=== PATIENT | female | born 1950 | race Caucasian/White ===

== ENCOUNTER 2017-01-16 05:08 | Inpatient (IN) | payer OTHER, MEDICARE ==
[2017-01-05 13:18] VITALS: BMI 33.1
[~2017-01-16 05:08] MED LIST: BACITRACIN 30 GM TUBE TOPICAL OINTMENT TP ONE
--- NOTE | 2017-01-16 07:46 | HP ---
History & Physical Update - History History: No Change - Physical Physical: No Change - Assessment Assessment: No Change - Plan Plan: No Change (This is my first time meeting the patient. I have informed her that I will be assissting Dr. Mcneal for todays procedure. She is fine with it.)
[2017-01-16] MEDS ORDERED: MIDAZOLAM HCL 2 MG/2 ML SINGLE DOSE VIAL ONE ×2 (08:07→10:59)
[2017-01-16] MEDS ORDERED: CEFAZOLIN 2 GM in DEXTROSE 5%-WATER - 100 ML IVPB ONE (08:15)
[2017-01-16] MEDS ORDERED: PROPOFOL 20 ML ONE (08:23)
[2017-01-16] MEDS ORDERED: ROCURONIUM BROMIDE 50 MG/5 ML VIAL ONE ×2 (08:24→09:06)
[2017-01-16] MEDS ORDERED: ceFAZolin SODIUM 1 GM VIAL IVPB ONE (08:27)
[2017-01-16] MEDS ORDERED: SEVOFLURANE 250 ML BTL ONE (08:34)
[2017-01-16] MEDS ORDERED: ceFAZolin SODIUM 1 GM VIAL ONE (08:44)
[2017-01-16] MEDS ORDERED: THROMBIN (BOVINE) 5,000 UNIT VIAL TP ONE (09:00)
[2017-01-16] MEDS ORDERED: BACITRACIN 50,000 UNITS VIAL TP ONE (09:00)
[2017-01-16] MEDS ORDERED: BUPIVACAINE HCL/PF 0.5% (5MG/ML) 10 ML VIAL ONE (10:02)
[2017-01-16] MEDS ORDERED: BACITRACIN 30 GM TUBE TOPICAL OINTMENT ONE (10:02)
[2017-01-16] MEDS ORDERED: BUPIVACAINE HCL/PF (5 MG/ML) 30 ML VIAL IJ ONE (10:05)
[2017-01-16] MEDS ORDERED: NEOSTIGMINE METHYLSULFATE 0.5 MG/ML - 10 ML MDV ONE (10:10)
[2017-01-16] MEDS ORDERED: GLYCOPYRROLATE 0.2 MG/1 ML VIAL ONE (10:11)
[2017-01-16] MEDS ORDERED: ONDANSETRON 4 MG/2 ML VIAL ONE (10:11)
[2017-01-16] MEDS ORDERED: LIDOCAINE HCL/PF 2% SDV 5ML VIAL ONE (10:11)
[2017-01-16] MEDS ORDERED: HYDROCORTISONE SOD SUCCINATE 2 ML ONE (10:11)
[2017-01-16] MEDS ORDERED: BACITRACIN 30 GM TUBE TOPICAL OINTMENT TP ONE (10:25)
--- NOTE | 2017-01-16 10:33 | OP ---
Operative Note - Note: Operative Date: 01/16/17 Pre-Operative Diagnosis: L4-5 >L3-4 and L5-S1 stenosis; L4-5 spondylolisthesis; L L4-5-S1 radiculopathy Operation: Partial L L3,L4,L5, S1 laminectomies, medial facetectomies, foramenotomies R L3-4, L4-5, L5-S; L4-5 posterolateral allograft fusion; microdissection Findings: R L4-5 Parafacet cyst with purulent vs cholesterol crystals L4-5 spondylolisthesis, stenosis > L3-4 and L5-S1; thickened ligamentum Implants: 1 cc graft-on Post-Operative Diagnosis: Same as Pre-op Surgeon: Won Mcneal Bending Roll Hand: Beto Bagley Anesthesiologist/RETAIL ASSOCIATE MANAGER BILINGUAL: Stephanie Kinney MD Anesthesia: General Specimens Removed: R L4-5 facet cyst r/o infection; fluid for cultures Estimated Blood Loss (mls): 50 Operative Report Dictated: Yes
[2017-01-16] MEDS ORDERED: BISACODYL 10 MG SUPP.RECT RC PRN (10:34)
[2017-01-16] MEDS ORDERED: ONDANSETRON 4 MG/2 ML VIAL IVPB PRN (10:34)
[2017-01-16] MEDS ORDERED: ALBUTEROL SO4 6.7 GM HFA INHALER IH PRN ×3 (10:37→11:14)
--- NOTE | 2017-01-16 10:44 | PN ---
Progress Note (short form) - Note Progress Note: NEUROSURGERY In PACU Some incisional pain AF, VS; O2 sat 100% Dressing C/D/I CV- RRR: Lungs- no wheezing; Abd- benign, +BS; Ext- no sign DVT Motor at least 4+/5 L DF;R DF 4/5 Albuterol PRN Decadron x 24 hrs as pt on prednisone previously and could benefit form it also for asthma Check intraop cyst fluid culture Cont iv abx for now till gram/stain back aware Check labs including LFT's Consult Dr Cortes
[2017-01-16] MEDS ORDERED: D5-1/2NS+20 MEQ KCL - 1,000 ML IV SCH ×2 (10:45)
--- NOTE | 2017-01-16 10:53 | SURG ---
Surgery Equipment Maintenance Technician Note Equipment Maintenance Technician: Beto Bagley PA-C Date of Service: 01/16/17 Diagnosis: L4-5 >L3-4 and L5-S1 stenosis; L4-5 spondylolisthesis; L L4-5-S1 radiculopathy Procedure: Partial L L3,L4,L5, S1 laminectomies, medial facetectomies, foramenotomies R L3- 4, L4-5, L5-S; L4-5 posterolateral allograft fusion; microdissection I was present for the entirety of the operative procedure. For further detail, please refer to operative report. Visit type - Case Type Case Type: Scheduled Admission - New patient This patient is new to me today: Yes Date on this admission: 01/16/17
[2017-01-16] MEDS: MIDAZOLAM HCL 2 MG/2 ML SINGLE DOSE VIAL IVPUSH ONE ×2 (11:00→21:58)
[2017-01-16] MEDS ORDERED: LACTATED RINGERS SOLUTION 1,000 ML IV SCH (11:15)
[2017-01-16 12:05] LABS: MCH 27.9 pg (25.7-33.7); MCHC 32.3 g/dl (32.0-36.0); MEAN CELL VOLUME 86.5 fl (80-96); MEAN PLT VOLUME 8.5 fl (7.5-11.1); PLATELET COUNT 298 K/MM3 (134-434); RDW 14.1 % (11.6-15.6); WHITE BLOOD COUNT 8.9 K/mm3 (4.0-10.0)
[2017-01-16 12:32] LABS: ANION GAP 8 (8-16); BILIRUBIN,TOTAL 0.3 mg/dL (0.2-1.0); C-REACTIVE PROTEIN 3.8 MG/DL (0.00-0.3); CALCIUM 8.9 mg/dL (8.5-10.1); CO2 26 mmol/L (21-32); CREATININE 0.7 mg/dL (0.55-1.02); GLUCOSE,RANDOM 146 mg/dL (74-106); SGOT/AST 28 U/L (15-37); SGPT/ALT 50 U/L (12-78); TOT PROT 5.9 g/dl (6.4-8.2)
[2017-01-16 12:33] LABS: ALK PHOS 140 U/L (45-117)
[2017-01-16] MEDS ORDERED: DEXAMETHASONE SOD PHOSPHATE 4 MG/1 ML VIAL IVPB SCH (15:00)
[2017-01-16] MEDS: DEXAMETHASONE SOD PHOSPHATE 4 MG/1 ML VIAL IVPB SCH ×2 (15:46→21:41)
[2017-01-16] MEDS: DOCUSATE SODIUM 100 MG CAPSULE (FP) PO SCH ×2 (15:46→21:41)
[2017-01-16] MEDS: diazePAM 5 MG TABLET PO SCH ×3 (15:46→21:41)
[2017-01-16] MEDS ORDERED: CEFAZOLIN 1 GM/D5W 50 ML IVPB SCH (16:30)
[2017-01-16 16:48] LABS: ERYTHROCYTE SEDIMENTATION RATE 60 mm/hr (0-30)
[2017-01-16] MEDS ORDERED: PT OWN MED DRAWER 7, Y5N ONE ×2 (16:57→21:35)
[2017-01-16] MEDS: CEFAZOLIN (PRE-DOCKED) 50 ML IVPB SCH (17:55)
[2017-01-16] MEDS: TAPENTADOL HYDROCHLORIDE 50 MG TABLET PO PRN (20:24)
[2017-01-16] MEDS: DULoxetine HCL 30 MG CAPSULE.DR (FP) PO SCH (21:41)
[2017-01-16] MEDS ORDERED: MIRTAZAPINE 30 MG TABLET (FP) PO SCH (22:00)
[2017-01-16] MEDS: TOPIRAMATE 100 MG TABLET PO SCH (23:19)
[2017-01-17] MEDS: CEFAZOLIN (PRE-DOCKED) 50 ML IVPB SCH ×3 (01:31→18:33)
[2017-01-17] MEDS: TAPENTADOL HYDROCHLORIDE 50 MG TABLET PO PRN ×3 (01:32→22:27)
[2017-01-17] MEDS: DEXAMETHASONE SOD PHOSPHATE 4 MG/1 ML VIAL IVPB SCH ×2 (04:32→09:45)
[2017-01-17] MEDS: diazePAM 5 MG TABLET PO SCH ×3 (06:07→22:23)
[2017-01-17] MEDS: DOCUSATE SODIUM 100 MG CAPSULE (FP) PO SCH ×3 (06:07→22:23)
--- NOTE | 2017-01-17 07:30 | PN ---
Progress Note (short form) - Note Progress Note: NEUROSURGERY POD #1 Some incisional pain Mild sciatica when up Tmax 99.2, AF, VSS Dressing C/D/I CV- RRR: Lungs- no wheezing; Abd- benign, +BS; Ext- no sign DVT Motor improved to 5/5 inc R DF WBC 8.9, ESR 60; Alk phos 140, LFT otherwise generally acceptable; CRP 3.8 PT Albuterol PRN Nucynta for pain Decadron x 24 hrs as pt on prednisone previously and could benefit form it also for asthma Intraop cyst fluid/wound and gram stain culture negative Cont iv abx for now till gram/stain back aware Consulted Dr Cortes
[2017-01-17 08:10] LABS: MCH 27.9 pg (25.7-33.7); MCHC 32.7 g/dl (32.0-36.0); MEAN CELL VOLUME 85.4 fl (80-96); MEAN PLT VOLUME 8.5 fl (7.5-11.1); PLATELET COUNT 282 K/MM3 (134-434); RDW 13.6 % (11.6-15.6); WHITE BLOOD COUNT 13.1 K/mm3 (4.0-10.0)
--- NOTE | 2017-01-17 08:39 | PN ---
Progress Note, Physician Chief Complaint: Pt. pain controlled, no GA complications. - Current Medication List Current Medications: Active Medications Albuterol Sulfate (Ventolin Hfa Inhaler -) 1 puff IH QID PRN PRN Reason: ASTHMA Albuterol Sulfate (Ventolin Hfa Inhaler -) 2 puff IH QID PRN PRN Reason: ASTHMA Bisacodyl (Dulcolax Suppository -) 10 mg RC DAILY PRN PRN Reason: CONSTIPATION Dexamethasone Sodium Phosphate (Decadron Injection -) 4 mg IVPB Q6H-IV [facility] Stop: 01/17/17 09:01 Last Admin: 01/17/17 04:32 Dose: 4 mg Diazepam (Valium -) 5 mg PO TID [facility] Last Admin: 01/17/17 06:07 Dose: 5 mg Docusate Sodium (Colace -) 100 mg PO TID [facility] Last Admin: 01/17/17 06:07 Dose: 100 mg Duloxetine HCl (Cymbalta -) 30 mg PO HS [facility] Last Admin: 01/16/17 21:41 Dose: 30 mg Fentanyl (Sublimaze Injection -) 50 mcg IVPUSH [id number] PRN PRN Reason: PAIN Stop: 01/19/17 11:15 Last Admin: 01/16/17 13:42 Dose: 50 mcg Potassium Chloride/Dextrose/Sod Cl (D5-1/2ns+20 Meq Kcl -) 1,000 mls @ 100 mls/ hr IV ASDIR DMITRIY Potassium Chloride/Dextrose/Sod Cl (D5-1/2ns+20 Meq Kcl -) 1,000 mls @ 42 mls/ hr IV ASDIR [facility] Cefazolin Sodium (Ancef 1gm Ivpb (Pre-Docked)) 50 mls @ 100 mls/hr IVPB Q8H [facility] Stop: 01/17/17 09:29 Last Admin: 01/17/17 01:31 Dose: 100 mls/hr Cefazolin Sodium 1 gm/ (Dextrose) 50 mls @ 100 mls/hr IVPB Q8H-IV [facility] Lactobacillus Acidophilus (Bacid -) 1 tab PO DAILY [facility] Ondansetron HCl (Zofran Injection) 4 mg IVPB Q6H PRN PRN Reason: NAUSEA AND/OR VOMITING Potassium Chloride (K-Dur -) 20 meq PO DAILY [facility] Prednisone (Deltasone -) 10 mg PO DAILY [facility] Tapentadol (Nucynta -) 50 mg PO Q4H PRN PRN Reason: PAIN Last Admin: 01/17/17 01:32 Dose: 50 mg Topiramate (Topamax -) 100 mg PO BID [facility] Last Admin: 01/16/17 23:19 Dose: 100 mg - Objective Vital Signs: Vital Signs Temperature 98.3 F 01/17/17 06:08 Pulse Rate 88 01/17/17 06:08 Respiratory Rate 20 01/17/17 06:08 Blood Pressure 148/54 01/17/17 06:08 O2 Sat by Pulse Oximetry (%) 98 01/16/17 14:15 Constitutional: Yes: Well Nourished, No Distress, Calm Musculoskeletal: Yes: WNL Neurological: Yes: WNL, Alert, Oriented Labs: CBC, BMP 01/17/17 07:15 Assessment/Plan POD#1 s/p Lumbar laminectomy L3-4, L4-5, L5-S1 under GA. Doing well. D/C from anesthesia care.
[2017-01-17 08:40] LABS: ALBUMIN 2.7 g/dl (3.4-5.0); ANION GAP 9 (8-16); CALCIUM 8.9 mg/dL (8.5-10.1); CO2 25 mmol/L (21-32); GLUCOSE,RANDOM 129 mg/dL (74-106)
[2017-01-17 08:45] LABS: ALK PHOS 123 U/L (45-117); BILIRUBIN,TOTAL 0.3 mg/dL (0.2-1.0); CREATININE 0.5 mg/dL (0.55-1.02); SGOT/AST 16 U/L (15-37); SGPT/ALT 39 U/L (12-78); TOT PROT 5.4 g/dl (6.4-8.2)
[2017-01-17] MEDS ORDERED: PT OWN MED DRAWER 7, Y5N ONE ×2 (09:37→21:56)
[2017-01-17] MEDS: predniSONE 10 MG TABLET (UD) PO SCH (09:46)
[2017-01-17] MEDS: CEFAZOLIN 1 GM in DEXTROSE 5%-WATER - 50 ML IVPB SCH ×2 (09:47→09:52)
[2017-01-17] MEDS: LACTOBACILLUS ACIDOPHILUS 1 EACH TAB (FP) PO SCH (09:47)
[2017-01-17] MEDS: POTASSIUM CHLORIDE TABS 20 MEQ TABLET.ER (FP) PO SCH (09:48)
[2017-01-17] MEDS: TOPIRAMATE 100 MG TABLET PO SCH ×2 (09:49→22:23)
--- NOTE | 2017-01-17 11:54 | PATH ---
Surgical Pathology Report Patient Name: CRISPIN DOMINGUEZ Med. Rec. #: [id number] /Age/Gender: 1950 (Age: 66) / F Account: [id number] Location: [facility] MED/SURG Taken: 01/16/2017 Received: 01/16/2017 Reported: 01/17/2017 Physicians: Won Mcneal M.D. Specimen(s) Received CYST L4-L5 Clinical History L4-L5 grade 1 spondylolisthesis with moderate central stenosis, L3-L4 and L5-S1 degenerative disease and foraminal narrowing Final Diagnosis SOFT TISSUE, L4-5 CYST, EXCISION: BENIGN FIBROFATTY TISSUE, FIBROCARTILAGE AND FRAGMENT OF BONE WITH DEGENERATIVE CHANGES, ACUTE AND CHRONIC INFLAMMATION. Comment: Special stains for acid-fast and fungal organisms at end and chemical results will be reported in an addendum. Correlation with microbiology studies are also suggested. Electronically Signed Randolph Triplett M.D. Addendum Reported: 01/17/2017 Addendum Diagnosis No fungal organisms are identified with GMS stain. No acid fast bacilli are identified with AFB stain. Randolph Triplett M.D. Gross Description Received fresh labeled "cyst L4-5," are 3 elizabeth-pink fragments of soft tissue ranging from 0.1-0.7 cm in greatest dimension. The specimens are submitted in toto in one cassette. /01/16/201701/16/2017
--- NOTE | 2017-01-17 12:12 | PN ---
Progress Note (short form) - Note Progress Note: Current Medications Albuterol Sulfate (Ventolin Hfa Inhaler -) 1 puff IH QID PRN PRN Reason: ASTHMA Albuterol Sulfate (Ventolin Hfa Inhaler -) 2 puff IH QID PRN PRN Reason: ASTHMA Bisacodyl (Dulcolax Suppository -) 10 mg RC DAILY PRN PRN Reason: CONSTIPATION Diazepam (Valium -) 5 mg PO TID [facility] Last Admin: 01/17/17 06:07 Dose: 5 mg Docusate Sodium (Colace -) 100 mg PO TID [facility] Last Admin: 01/17/17 06:07 Dose: 100 mg Duloxetine HCl (Cymbalta -) 30 mg PO HS [facility] Last Admin: 01/16/17 21:41 Dose: 30 mg Fentanyl (Sublimaze Injection -) 50 mcg IVPUSH [id number] PRN PRN Reason: PAIN Stop: 01/19/17 11:15 Last Admin: 01/16/17 13:42 Dose: 50 mcg Potassium Chloride/Dextrose/Sod Cl (D5-1/2ns+20 Meq Kcl -) 1,000 mls @ 100 mls/ hr IV [facility]IR DMITRIY Potassium Chloride/Dextrose/Sod Cl (D5-1/2ns+20 Meq Kcl -) 1,000 mls @ 42 mls/ hr IV ASDIR DMITRIY Cefazolin Sodium 1 gm/ (Dextrose) 50 mls @ 100 mls/hr IVPB Q8H-IV [facility] Last Admin: 01/17/17 09:52 Dose: Not Given Lactobacillus Acidophilus (Bacid -) 1 tab PO DAILY [facility] Last Admin: 01/17/17 09:47 Dose: 1 tab Ondansetron HCl (Zofran Injection) 4 mg IVPB Q6H PRN PRN Reason: NAUSEA AND/OR VOMITING Potassium Chloride (K-Dur -) 20 meq PO DAILY [facility] Last Admin: 01/17/17 09:48 Dose: 20 meq Prednisone (Deltasone -) 10 mg PO DAILY [facility] Last Admin: 01/17/17 09:46 Dose: 10 mg Tapentadol (Nucynta -) 50 mg PO Q4H PRN PRN Reason: PAIN Last Admin: 01/17/17 01:32 Dose: 50 mg Topiramate (Topamax -) 100 mg PO BID [facility] Last Admin: 01/17/17 09:49 Dose: 100 mg Laboratory Results - last 24 hr 01/16/17 01/16/17 01/16/17 11:30 11:30 11:30 WBC 8.9 RBC 4.06 Hgb 11.3 D Hct 35.1 MCV 86.5 MCHC 32.3 RDW 14.1 Plt Count 298 D MPV 8.5 ESR 60 H Sodium 142 Potassium 4.8 D Chloride 108 H Carbon Dioxide 26 Anion Gap 8 BUN 15 Creatinine 0.7 Creat Clearance w eGFR > 60 Random Glucose 146 H D Calcium 8.9 Total Bilirubin 0.3 D AST 28 ALT 50 Alkaline Phosphatase 140 H D C-Reactive Protein 3.8 H Cancelled Total Protein 5.9 L Albumin 3.0 L 01/17/17 01/17/17 07:15 07:15 WBC 13.1 H D RBC 3.63 Hgb 10.1 L D Hct 31.0 L MCV 85.4 MCHC 32.7 RDW 13.6 Plt Count 282 MPV 8.5 ESR Sodium 143 Potassium 4.2 Chloride 109 H Carbon Dioxide 25 Anion Gap 9 BUN 10 D Creatinine 0.5 L D Creat Clearance w eGFR > 60 Random Glucose 129 H Calcium 8.9 Total Bilirubin 0.3 AST 16 D ALT 39 D Alkaline Phosphatase 123 H C-Reactive Protein Total Protein 5.4 L Albumin 2.7 L Vital Signs Temperature 98.3 F 01/17/17 06:08 Pulse Rate 88 01/17/17 06:08 Respiratory Rate 20 01/17/17 06:08 Blood Pressure 148/54 01/17/17 06:08 O2 Sat by Pulse Oximetry (%) 98 01/16/17 14:15 CC: little or no back pain `````````````````````````````` skin--mild pallor eyes--EOMI, anicteric neck--no stridor, voice clear lungs--clear heart--RR neuro--alert, coherent, anxious but lucid; able to walk slowly without discomfort while doing PT ``````````````````````````````````````````````````````` Summ > degen LS bone & disc Dz--post op day #1; under went lumbo sacral decompression surge as outlined by Dr Mcneal; now doing PT > Bone cyst--detected at time of surgery; Path report reveals a benign appearance; prelim cultures are negative > asthma--stable at this time; on maint Prednisone and PRN Nebs > High glucose--probably 2nd steroid effect; no Hx of DM; will track daily > Mildly high WBC--doubt infection, post OP likely 2nd steroid effect > high Alk Phosph--trending down; had acute rise in all 3 LFTs pre-op; now near NL; US & Hep screen negative; this was very likely due to temp occlusion of CBD by stone but now seems to have passed > anemia--post-op; will recheck CBC in AM; could be dilutional > anxiety dz--on Valium & SSRI; will cut back valium slowly ~~~~~~~~~~~~~~~~~~~~~~~~~~~ Dr Cortes
[2017-01-17] MEDS ORDERED: CEFAZOLIN (PRE-DOCKED) 50 ML IVPB SCH (13:42)
--- NOTE | 2017-01-17 15:50 | OP ---
DATE OF OPERATION: 01/16/2017 PREOPERATIVE DIAGNOSES: 1. L4-5 spondylolisthesis with ventral and lateral recess stenosis. 2. Lateral recess stenosis, L3-4 and L5-S1. 3. Right L4, L5, and S1 radiculopathy. 4. Asthma. POSTOPERATIVE DIAGNOSES: 1. L4-5 spondylolisthesis with ventral and lateral recess stenosis 2. Lateral recess stenosis, L3-4 and L5-S1. 3. Right L4, L5, and S1 radiculopathy. 4. Asthma. ATTENDING SURGEON: Won Delgado MD [employer] ATTENDANT: VIKTOR Stewart ANESTHESIA: General endotracheal. ANESTHESIOLOGIST: Stephanie Kinney MD ESTIMATED BLOOD LOSS: 25 mL PROCEDURE: 1. Partial left L3, L4, L5, and S1 laminectomies for decompression of canal and right-sided neural foramen at the L3-4, L4-5, and L5-S1, including medial facetectomy and foraminotomy (36920, 17710, and [id number], and [id number]). 2. Right L4-5 posterior allograft fusion with allograft (40958). 3. Microsurgical dissection with operating microscope and microsurgical techniques (95016). FINDINGS: 1. Right L4-5 parafacet cyst with creamy-appearing material within. 2. Mild hypermobility, L4-5. 3. Lateral recess and foraminal stenosis, especially L4-5. INDICATIONS: The patient is a 66-year-old female with history of intractable lower back pain of right lower extremity radiculopathy of a few months' duration. She also presented with right lower extremity weakness in the L4, L5, and S1 distribution. EMG demonstrated right L5-S1 radiculopathy. The patient has failed conservative treatment, is here for lumbar decompression and posterolateral bone graft fusion without instrumentation. The risks of surgery include but are not limited to bleeding, infection, dural tear with CSF leak, neurological injury including thromboembolic risks, and risks of general anesthesia. The patient understands the indication for the procedure, procedure in detail, risks and benefits, and alternatives for treatment of lumbar condition and wishes to proceed. No guarantee is given for a favorable outcome. PROCEDURE IN DETAIL: The patient was taken to the operating room. She was placed in supine position after general anesthesia was induced and appropriate lines were placed. She was turned over in the prone position on a Bandar frame. All pressure points were checked and padded. O2 saturation of bilateral lower extremities was 100%. Lumbar region was cleaned with alcohol and prepped with Betadine, and localization x-ray was obtained with spinal needle in place just below the L4-5 interspace. After localization was obtained and position was verified, an approximately 3-1/2-inch incision was planned from L3 to S1. Incision was opened with a number 10 blade. Subperiosteal dissection was carried out with periosteal elevator and monopolar electrocautery on right side only from L3 to S1. Two self-retaining retractors were inserted. At this point, a couple of small parafacet cysts were noted, and upon puncturing one of them, some whitish creamy-colored material came out and it was sent for Gram stain, culture, bacterial, fungal, and AFB culture. A piece of the cyst was also sent for permanent section to rule out infection versus synovial cyst. At this point, the wound was irrigated with antibiotic-containing irrigation. X-ray localization was obtained with clamp at bottom of right L4 lamina. After position was verified on x-ray, partial laminectomy was carried out on the bottom of lamina of L3, top and bottom of lamina of L4, top and bottom of lamina of L5, top of lamina of S1, with compression of the spinal canal and lateral recess as well as neural foramen. Medial facetectomy at L3-4 to L4- 5 as well as L5-S1 was carried out with high-speed pneumatic drill and Kerrison rongeur. The underlying ligamentum was extremely thick, especially at L4-5, and it was disarticulated with angled curette and resected with Kerrison rongeurs. The dura was protected at all times. The right L4 and L5 nerve roots were decompressed at this level. Attention was then turned to the L3-4 interlaminar space, where partial hemilaminectomy was completed. Underlying ligamentum flavum was dissected with angled curette and resected with Kerrison rongeur. A foraminotomy was similarly carried out at this level to decompress the thecal sac as well as the right L3 and L4 nerve roots. Attention was turned to the L5-S1 interspace, where partial laminectomy was completed as well as a medial facetectomy and foraminotomy. Ligamentum flavum was dissected free similarly and the thecal sac as well as right L5-S1 nerve root was decompressed, the neural foramen and lateral recess respectively. There was no creamy/purulent-appearing material in the epidural space at all. The wound was irrigated with copious amount of antibiotic-containing irrigation, over 1 L. The posterolateral surface of the spine at L4 and L5 was decorticated with a high- speed pneumatic drill from the top of the transverse process at L5 to the bottom of the transverse process at L4. The area was then packed with 1 mL of previously morselized bone dust from our laminectomy as well as 1 mL of Graft-on. Epidural hemostasis was obtained with bipolar electrocautery and thrombin-soaked powdered Gelfoam. Another round of antibiotic irrigation was given. A layer of Surgicel was layered in the epidural space as effusion barrier. It was also left as a bacteriostatic agent. Paraspinal hemostasis was obtained with bipolar electrocautery. The decompression portion of procedure was performed with the use of the operative microscope for both illumination and magnification. Microsurgical techniques were utilized. After the posterolateral bone graft placement was completed at L4-5, dorsal lumbar fascia was closed utilizing 0 Vicryl suture after 10 mL of 0.25%Marcaine plain was injected in paraspinal muscles for local anesthetic. There was no other significant purulent material noted after further exploration of exposed LS spine area. Dorsal lumbar fascia was closed with 0 Vicryl suture. subcutaneous fascia was closed with 3- 0 Vicryl suture. Skin was closed with 4-0 Vicryl running subcuticular suture. Steri- Strips and a sterile occlusive dressing was applied. The patient tolerated the procedure well and was returned back to supine position and extubated. She received 1 dose of 1 gm Ancef prior to incision. All needle and lap counts were correct. The OR timeout procedure was followed. The intraoperative findings were discussed with the patient as well as the patient's family. They were informed of possibility of preexisting infection. WON DELGADO M.D. [id number] MTDD
--- NOTE | 2017-01-17 16:53 | PN ---
Progress Note (short form) - Note Progress Note: ID consult dictated imp/reccd 66 year old female admitted for elective lumbar laminectomy noted in the OR to have a parafacet cyst with creamy contents sent for gram stain and culture sent for path no history of diabetes no history of fevers otherwise well has had chronic worsening back pain recently tried epidural injections last 6 weeks ago currently on cefazolin cultures negative at 24 hours and gram stain is negative for organisms continue same antibiotics would await cultures afb and fungal have been sent as well d/w Dr Mcneal
--- NOTE | 2017-01-17 19:24 | CONS ---
DATE OF CONSULTATION: DATE OF DICTATION: 01/17/2017 INFECTIOUS DISEASE CONSULTATION REQUESTING PHYSICIAN: Won Mcneal M.D. CONSULTING PHYSICIAN: Micaela Ramos M.D. HISTORY OF PRESENT ILLNESS: This is a 66-year-old woman with a history of chronic back pain. She also has a history of hypertension and asthma . She has had progressive back pain for many, many years. She tried epidural several years ago. The pain waxed and waned. She tried epidurals again this November and December, the last about 6 weeks ago, was a set of 3 injections with no relief. She ultimately was referred by her PMD to Dr. Mcneal, and she was admitted for elective lumbar laminectomy. She underwent routine lumbar laminectomy and during the procedure she was noted to have a perifacet cyst with creamy content. There was a stat intraoperative pathology consult of the cyst that was notable just for chronic inflammation. It was sent for Gram stain and for culture as well as AFB and fungal. She was maintained on cephazolin and I am asked to comment on antibiotic management. She is afebrile, she has had no fevers and chills whatsoever. The Gram stain of the cyst itself shows no polycytes, no organisms. Gram stain of the fluid showed red cells with few polycytes, again no organisms, and AFB fungal and routine cultures are pending, blood cultures are negative. She had surgery yesterday. She has been continued on cephazolin. She is allergic to MORPHINE. She takes Topamax as an outpatient. PAST MEDICAL HISTORY: Notable for headaches, hypertension, asthma, diverticulosis, GERD, anxiety, depression, chronic low back pain. 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 FAMILY HISTORY: Noncontributory. SOCIAL HISTORY: She lives at home. MEDICATION: Medications at home include vitamin B, vitamin B12, calcium carbonate, vitamin D3, lactobacillus, multivitamins, mirtazapine, potassium, Topamax. SOCIAL HISTORY: She lives at home. There is no history of any cigarette use, occasional social wine with dinner. She is a former smoker. REVIEW OF SYSTEMS: She has been well. She had a recent UTI treated with amoxicillin for 10 days, which she currently has no dysuria, and she has not had any fevers or chills. PHYSICAL EXAMINATION: General: She is awake and alert. Vital signs: Temperature 99.2, heart rate 101, blood pressure 118/64, respiratory rate 18. HEENT: Normocephalic. Eyes are anicteric. Neck: Supple. Lungs: Clear to auscultation. Heart: Regular rate and rhythm. Abdomen: Soft, nontender. Extremities: Without edema. LABORATORY: White count is 13.1, hemoglobin 10.1, platelets 282, INR 1, BUN and creatinine are 10 and 0.5. LFTs are notable for an alkaline phosphatase of 123. Urinalysis is negative. Blood cultures are negative at 24 hours, and the cyst tissue is negative at 24 hours as well. AFB and fungal cultures are pending. I spoke with Dr. Mcneal regarding this patient's case . She is currently on cephazolin. Would continue the same antibiotics at this time. Will spike to in the morning. Would await further cultures. Most likely cyst does not appear infected. If the Gram stain has no organisms and the cultures are negative, but will follow up pathology as well. MICAELA RAMOS M.D. [id number]
[2017-01-17] MEDS: DULoxetine HCL 30 MG CAPSULE.DR (FP) PO SCH (22:23)
[2017-01-18] MEDS: CEFAZOLIN (PRE-DOCKED) 50 ML IVPB SCH ×2 (02:12→09:47)
[2017-01-18] MEDS: diazePAM 5 MG TABLET PO SCH ×3 (06:15→22:19)
[2017-01-18] MEDS: DOCUSATE SODIUM 100 MG CAPSULE (FP) PO SCH ×3 (06:16→22:19)
--- NOTE | 2017-01-18 07:25 | PN ---
Progress Note (short form) - Note Progress Note: NEUROSURGERY POD #2 Some incisional pain Mild sciatica when up Tolerating PO Walked up and down hallway to elevator with PT Tmax 99.3, AF, VSS Dressing C/D/I CV- RRR: Lungs- no wheezing; Abd- benign, +BS; Ext- no sign DVT Motor improved to 5/5 inc R DF PT/OOB Albuterol PRN Nucynta for pain Intraop cyst fluid/wound culture negative to date Cont Ancef for now ; d/w ID ID f/u
[2017-01-18 08:44] LABS: MCH 28.1 pg (25.7-33.7); MCHC 32.8 g/dl (32.0-36.0); MEAN CELL VOLUME 85.8 fl (80-96); MEAN PLT VOLUME 8.4 fl (7.5-11.1); PLATELET COUNT 314 K/MM3 (134-434); RDW 13.8 % (11.6-15.6); WHITE BLOOD COUNT 10.9 K/mm3 (4.0-10.0)
[2017-01-18 09:22] LABS: ALBUMIN 2.7 g/dl (3.4-5.0); ALK PHOS 127 U/L (45-117); ANION GAP 10 (8-16); BILIRUBIN,TOTAL 0.4 mg/dL (0.2-1.0); CALCIUM 8.9 mg/dL (8.5-10.1); CO2 25 mmol/L (21-32); CREATININE 0.6 mg/dL (0.55-1.02); GLUCOSE,RANDOM 85 mg/dL (74-106); MAGNESIUM 2.2 mg/dL (1.8-2.4); SGOT/AST 22 U/L (15-37); SGPT/ALT 43 U/L (12-78); TOT PROT 5.6 g/dl (6.4-8.2)
[2017-01-18] MEDS ORDERED: PT OWN MED DRAWER 7, Y5N ONE ×5 (09:46→22:50)
[2017-01-18] MEDS: predniSONE 10 MG TABLET (UD) PO SCH (09:48)
[2017-01-18] MEDS: POTASSIUM CHLORIDE TABS 20 MEQ TABLET.ER (FP) PO SCH (09:48)
[2017-01-18] MEDS: LACTOBACILLUS ACIDOPHILUS 1 EACH TAB (FP) PO SCH (09:48)
[2017-01-18] MEDS: TOPIRAMATE 100 MG TABLET PO SCH ×2 (09:48→22:19)
--- NOTE | 2017-01-18 12:41 | PN ---
Progress Note (short form) - Note Progress Note: resting comfortably afebrile Vital Signs Period Temp Pulse Resp BP Sys/Mckenzie Pulse Ox Last 24 Hr 98.4 F-99.3 F 90-101 18-20 118-142/61-72 cor-rrr lungs clear abd soft,nt ext no edema CBC, BMP 01/18/17 07:30 01/18/17 07:30 Microbiology 01/16/17 13:05 Blood - Peripheral Venous Blood Culture - Preliminary NO GROWTH OBTAINED AFTER 24 HOURS, INCUBATION TO CONTINUE FOR 4 DAYS. 01/16/17 12:58 Blood - Peripheral Venous Blood Culture - Preliminary NO GROWTH OBTAINED AFTER 24 HOURS, INCUBATION TO CONTINUE FOR 4 DAYS. 01/16/17 10:00 Tissue-Other Gram Stain - Final 01/16/17 10:00 Tissue-Other Tissue Culture - Preliminary NO AEROBIC GROWTH, 24 HRS 01/16/17 10:02 Cyst Gram Stain - Final 01/16/17 10:04 Cyst AFB Smear Concentration - Preliminary 01/16/17 10:04 Cyst Mycobacterial Culture - Preliminary 01/16/17 10:06 Cyst KEYSHA Preparation - Preliminary 01/16/17 10:06 Cyst Fungal Culture - Preliminary a/p doubt infected cyst- called MIcro- cultures negative after 48 hours, with negative gram stain as well can d/c cefazolin d/w Dr Mcneal afb and fungal have been sent as well please call back if needed
--- NOTE | 2017-01-18 12:45 | PN ---
Problem List - Problems (1) Synovial cyst of lumbar spine Code(s): M71.38 - OTHER BURSAL CYST, OTHER SITE
[2017-01-18] MEDS: TAPENTADOL HYDROCHLORIDE 50 MG TABLET PO PRN (14:06)
--- NOTE | 2017-01-18 17:33 | PN ---
Progress Note (short form) - Note Progress Note: Current Medications Albuterol Sulfate (Ventolin Hfa Inhaler -) 1 puff IH QID PRN PRN Reason: ASTHMA Albuterol Sulfate (Ventolin Hfa Inhaler -) 2 puff IH QID PRN PRN Reason: ASTHMA Bisacodyl (Dulcolax Suppository -) 10 mg RC DAILY PRN PRN Reason: CONSTIPATION Diazepam (Valium -) 5 mg PO TID [facility] Last Admin: 01/18/17 14:05 Dose: 5 mg Docusate Sodium (Colace -) 100 mg PO TID [facility] Last Admin: 01/18/17 14:05 Dose: 100 mg Duloxetine HCl (Cymbalta -) 30 mg PO HS [facility] Last Admin: 01/17/17 22:23 Dose: 30 mg Potassium Chloride/Dextrose/Sod Cl (D5-1/2ns+20 Meq Kcl -) 1,000 mls @ 100 mls/ hr IV ASDIR DMITRIY Potassium Chloride/Dextrose/Sod Cl (D5-1/2ns+20 Meq Kcl -) 1,000 mls @ 42 mls/ hr IV ASDIR DMITRIY Lactobacillus Acidophilus (Bacid -) 1 tab PO DAILY [facility] Last Admin: 01/18/17 09:48 Dose: 1 tab Ondansetron HCl (Zofran Injection) 4 mg IVPB Q6H PRN PRN Reason: NAUSEA AND/OR VOMITING Potassium Chloride (K-Dur -) 20 meq PO DAILY [facility] Last Admin: 01/18/17 09:48 Dose: 20 meq Prednisone (Deltasone -) 10 mg PO DAILY [facility] Last Admin: 01/18/17 09:48 Dose: 10 mg Tapentadol (Nucynta -) 50 mg PO Q4H PRN PRN Reason: PAIN Last Admin: 01/18/17 14:06 Dose: 50 mg Topiramate (Topamax -) 100 mg PO BID [facility] Last Admin: 01/18/17 09:48 Dose: 100 mg Laboratory Results - last 24 hr 01/18/17 01/18/17 07:30 07:30 WBC 10.9 H RBC 3.84 Hgb 10.8 Hct 32.9 MCV 85.8 MCHC 32.8 RDW 13.8 Plt Count 314 MPV 8.4 Sodium 143 Potassium 3.7 Chloride 108 H Carbon Dioxide 25 Anion Gap 10 BUN 17 D Creatinine 0.6 Creat Clearance w eGFR > 60 Random Glucose 85 D Calcium 8.9 Magnesium 2.2 Total Bilirubin 0.4 D AST 22 D ALT 43 Alkaline Phosphatase 127 H Total Protein 5.6 L Albumin 2.7 L Vital Signs Temperature 99.7 F H 01/18/17 17:12 Pulse Rate 66 01/18/17 17:12 Respiratory Rate 20 01/18/17 17:12 Blood Pressure 133/56 01/18/17 17:12 O2 Sat by Pulse Oximetry (%) 98 01/16/17 14:15 CC: little or no back pain `````````````````````````````` skin--mild pallor eyes--EOMI, anicteric neck--no stridor, voice clear lungs--clear heart--RR neuro--alert, coherent, anxious but lucid; able to walk slowly without discomfort while doing PT ``````````````````````````````````````````````````````` Summ > degen LS bone & disc Dz--post op day #2; under went lumbo sacral decompression surgery as outlined by Dr Mcneal; now doing PT; hope to d/c in AM > Bone cyst--detected at time of surgery; Path report reveals a benign appearance; prelim cultures are negative; seen by ID and Abs stopped > asthma--stable at this time; on maint Prednisone and PRN Nebs > High glucose--probably 2nd steroid effect; no Hx of DM; will track daily > Mildly high WBC--doubt infection, post OP likely 2nd steroid effect > high Alk Phosph--had acute rise in all 3 LFTs pre-op; now near NL; US & Hep screen negative; this was very likely due to temp occlusion of CBD by stone but now seems to have passed > anemia--post/op; stable > anxiety dz--stable ~~~~~~~~~~~~~~~~~~~~~~~~~~~ Dr Cortes
[2017-01-18] MEDS: DULoxetine HCL 30 MG CAPSULE.DR (FP) PO SCH (22:19)
--- NOTE | 2017-01-18 22:51 | PN ---
Progress Note (short form) - Note Progress Note: NEUROSURGERY POD #2 Pt seen again in the afternoon at bedside Walked up and down hallway Tmax 99.7, VSS Off abx Dressing C/D/I CV- RRR: Lungs- no wheezing; Abd- benign, +BS; Ext- no sign DVT Motor improved to 5/5 inc R DF Wbc 10.9 PT/OOB Nucynta for pain Intraop cyst fluid/wound culture negative Off Ancef D/W ID D/C instructions given
[2017-01-19] MEDS: diazePAM 5 MG TABLET PO SCH (05:59)
[2017-01-19] MEDS: DOCUSATE SODIUM 100 MG CAPSULE (FP) PO SCH (05:59)
[2017-01-19] MEDS ORDERED: PT OWN MED DRAWER 7, Y5N ONE (09:06)
[2017-01-19] MEDS: predniSONE 10 MG TABLET (UD) PO SCH (09:09)
[2017-01-19] MEDS: TAPENTADOL HYDROCHLORIDE 50 MG TABLET PO PRN (09:09)
[2017-01-19] MEDS: POTASSIUM CHLORIDE TABS 20 MEQ TABLET.ER (FP) PO SCH (09:09)
[2017-01-19] MEDS: LACTOBACILLUS ACIDOPHILUS 1 EACH TAB (FP) PO SCH (09:09)
[2017-01-19] MEDS: TOPIRAMATE 100 MG TABLET PO SCH (09:09)
[2017-01-19 12:28] VITALS: BP 113/79; PULSE 98; TEMP 99
== END 2017-01-19 09:50 | disposition home health service (06) | DRG 460 ==
LOC: JSAMEDAYSX 05:08 → EDSTATUS 08:00 → J8W 15:22
PROVIDERS: ADMIT Neurological Surgery; ATTEND Neurological Surgery
PROC: 01NB0ZZ Release Lumbar Nerve, Open Approach (ICD-10-PCS; 2017-01-16)
PROC: 0SG007J Fusion of Lumbar Vertebral Joint with Autologous Tissue Substitute, Posterior Approach, Anterior Column, Open Approach (ICD-10-PCS; principal; 2017-01-16 08:00)
DX: M43.16 Spondylolisthesis, lumbar region (principal); M54.17 Radiculopathy, lumbosacral region; J45.909 Unspecified asthma, uncomplicated; M48.07 Spinal stenosis, lumbosacral region; D64.9 Anemia, unspecified; R73.9 Hyperglycemia, unspecified; M71.38 Other bursal cyst, other site; F41.9 Anxiety disorder, unspecified
CPT/HCPCS: 36415; 72020-TC; 80048; 80053; 80076; 83735; 85027; 85651; 86140; 86850; 86900; 86901; 87040; 87070; 87075; 87102; 87116; 87205; 87206; 87210; 88304-TC; 88312-TC; 94010; 94760; 97116-GP; 97162-PG

== ENCOUNTER 2017-10-26 09:53 | Inpatient (IN) | payer OTHER, MEDICARE ==
[2017-10-26 10:01] VITALS: BMI 30.9
[2017-10-26] MEDS ORDERED: PANTOPRAZOLE SODIUM 40 MG in SODIUM CHLORIDE 100 ML IVPB ONE (10:25)
--- NOTE | 2017-10-26 10:26 | PDOC ---
History of Present Illness - General Chief Complaint: Rectal Bleed Stated Complaint: RECTAL BLEED Time Seen by Provider: 10/26/17 10:10 History Source: Patient Exam Limitations: No Limitations - History of Present Illness Initial Comments: 10/26/17 10:32 CHIEF COMPLAINT: Rectal bleeding HISTORY OF PRESENT ILLNESS: This is a 67 year old female with HTN, asthma, diverticular disease, OA of spine, GERD, "bleeding ulcer" at age of 8, prior admission in February 2016 with diverticular bleed who presents with dark red ( "almost black") blood per rectum since Monday. She describes a large volume of blood ("pouring out"). She describes upper abdominal burning pain. She notes that she ran out of her omeprazole on Monday. She feels lightheaded and weak. She denies chest pain or shortness of breath. She denies NSAID use. She drinks only occasional alcohol. She has been taking iron, but not until after onset of her dark stool. 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 PCP: Dr. Cortes REVIEW OF SYSTEMS: GENERAL/CONSTITUTIONAL: No fever or chills. Generalized weakness. HEAD, EYES, EARS, NOSE AND THROAT: No change in vision. No ear pain or discharge. No sore throat. CARDIOVASCULAR: No chest pain or palpitations. RESPIRATORY: No cough, wheezing, or shortness of breath. GASTROINTESTINAL: See HPI. GENITOURINARY: No dysuria, frequency, or change in urination. MUSCULOSKELETAL: No joint or muscle swelling or pain. No neck or back pain. SKIN: No rash or easy bruising. NEUROLOGIC: Chronic headaches. No vertigo, loss of consciousness, or loss of sensation. PSYCHIATRIC: No depression or anxiety. ENDOCRINE: No increased thirst. No abnormal weight change. HEMATOLOGIC/LYMPHATIC: No anemia, easy bleeding, or history of blood clots. ALLERGIC/IMMUNOLOGIC: No hives or skin allergy. No latex allergy. PHYSICAL EXAM: GENERAL: The patient is awake, alert, and fully oriented, in no acute distress. HEAD: Normal with no signs of trauma. ENT: Pupils equal, round and reactive to light, extraocular movements intact, sclera anicteric, conjunctiva clear. Neck supple. LUNGS: Clear to auscultation bilaterally. Normal excursion. No respiratory distress or use of accessory muscles. CV: RRR, S1/S2, no MRG. Cap refill < 2 sec. ABDOMEN: Soft, non-distended, non-tender. EXTREMITIES: Normal range of motion, no edema. NEUROLOGICAL: Normal speech, normal gait. CN II-XII grossly intact. PSYCH: Normal mood, normal affect. SKIN: Warm, dry, normal turgor, no rashes or lesions noted. RECTAL: James melena. Past History - Past Medical History Allergies/Adverse Reactions: Allergies Allergy/AdvReac Type Severity Reaction Status Date / Time morphine Allergy Severe VOMITING,HALLUCINATIONS, Verified 10/26/17 09:57 WAS TOLD TO NEVER TAKE IT AGAIN Home Medications: Ambulatory Orders B-Complex with Vitamin C [B-Complex with C] 1 each PO DAILY 02/01/16 Calcium Carb, Citrate/Vit D3 [Calcium + D3 ER Tablet] 1 each PO DAILY 02/01/16 Cholecalciferol (Vitamin D3) [D3-2000] 2,000 unit PO DAILY 02/01/16 Cyanocobalamin [Vitamin B12 -] 500 mcg PO DAILY 02/01/16 Mirtazapine 30 mg PO HS 02/01/16 Multivitamin [Poly-Vitamin] 1 each PO DAILY 02/01/16 Topiramate 100 mg PO BID 02/01/16 Duloxetine HCl [Cymbalta -] 30 mg PO HS 01/05/17 Potassium Chloride [Klor-Con] 20 meq PO DAILY 01/05/17 Vitamin E 400 unit PO DAILY 01/05/17 Prednisone 10 mg PO DAILY 01/16/17 Acetaminophen with Codeine [Tylenol with Codeine #3 Tablet] 1 each PO BID PRN # 30 tablet MDD 2 01/18/17 Albuterol Sulfate Inhaler - [Ventolin HFA Inhaler -] 1 puff IH QID PRN #0 inhaler 01/18/17 Diazepam [Valium] 5 mg PO DAILY PRN #20 tablet NS MDD 1 01/18/17 Topiramate [Topamax -] 100 mg PO BID tablet 01/18/17 Anemia: No Asthma: Yes (FREQUENTLY USES INHALER R/T ALLERGIES IE;DOGS) Cancer: No Cardiac Disorders: No CVA: No COPD: No CHF: No Dementia: No Diabetes: No GI Disorders: Yes (GERD) Disorders: No HTN: Yes Hypercholesterolemia: No Liver Disease: No Seizures: No Thyroid Disease: No - Surgical History Abdominal Surgery: No Appendectomy: No Cardiac Surgery: No Cholecystectomy: No Lung Surgery: No Neurologic Surgery: Yes (HAD SURGERY FOR BRAIN TUMOR 1963,,DOING WELL) Orthopedic Surgery: Yes (KYPHOPLASTY 2008,LEFT SHOULDER SURGERY 06/11/14) - Suicide/Smoking/Psychosocial Hx Smoking Status: Yes Smoking History: Former smoker Have you smoked in the past 12 months: No Number of Cigarettes Smoked Daily: 0 If you are a former smoker, when did you quit?: 01/2014 Information on smoking cessation initiated: No Hx Alcohol Use: Yes (WINE WITH DINNER) Drug/Substance Use Hx: No Substance Use Type: None Hx Substance Use Treatment: No *Physical Exam - Vital Signs Last Vital Signs Temp Pulse Resp BP Pulse Ox 97.8 F 103 H 16 151/53 100 10/26/17 09:57 10/26/17 09:57 10/26/17 09:57 10/26/17 09:57 10/26/17 09:57 ED Treatment Course - LABORATORY CBC & Chemistry Diagram: 10/26/17 10:24 10/26/17 10:30 - RADIOLOGY Radiology Studies Ordered: Category Date Time Status CHEST X-RAY PORTABLE* [RAD] Stat Radiology 10/26/17 10:26 Ordered Medical Decision Making - Medical Decision Making 10/26/17 10:55 A/P: 67 year old female with GI bleed. 1. EKG 2. Labs including CBC, CMP, PT/INR, T&S 3. CXR 4. Protonix 40mg IVP bolus/8mg/hr gtt 5. NPO 6. Admit with GI eval H/H 5.9/18.[address] Arteaga and Dr. Cortes paged 10/26/17 12:23 Evaluated and accepted for admission by Dr. Cortes. Evaluated by Dr. Mujica who recommends ICU placement given large volume of melena. Accepted by Dr. Mujica. *DC/Admit/Observation/Transfer Diagnosis at time of Disposition: GI bleeding Qualifiers: GI bleed type/associated pathology: melena Qualified Code(s): K92.1 - Melena - Discharge Dispostion Condition at time of disposition: Guarded Admit: Yes - Referrals - Patient Instructions - Post Discharge Activity
[2017-10-26] MEDS ORDERED: PANTOPRAZOLE SODIUM 80 MG in SODIUM CHLORIDE 100 ML IVPB SCH (10:30)
[2017-10-26] MEDS ORDERED: PANTOPRAZOLE SODIUM 40 MG VIAL ONE (10:30)
[2017-10-26 10:38] LABS: EOS % 1.3 % (0-4.5); LYMPH % 21.8 % (8-40); MCH 27.2 pg (25.7-33.7); MCHC 31.9 g/dl (32.0-36.0); MEAN CELL VOLUME 85.2 fl (80-96); MEAN PLT VOLUME 8.7 fl (7.5-11.1); NEUT % 66.9 % (42.8-82.8); PLATELET COUNT 274 K/MM3 (134-434); RBC 2.17 M/mm3 (3.60-5.2); RDW 15.9 % (11.6-15.6)
[2017-10-26 10:42] LABS: HEMATOCRIT 18.5 % (32.4-45.2); HEMOGLOBIN 5.9 GM/dL (10.7-15.3)
[2017-10-26 10:58] LABS: INR 1.18 (0.82-1.09); PROTHROMBIN TIME (PATIENT) 13.3 SEC (9.98-11.88)
[2017-10-26 11:11] LABS: ALBUMIN 3.3 g/dl (3.4-5.0); ANION GAP 7 (8-16); BILIRUBIN,TOTAL 0.1 mg/dL (0.2-1.0); BLOOD UREA NITROGEN 18 mg/dL (7-18); CALCIUM 8.8 mg/dL (8.5-10.1); CHLORIDE 114 mmol/L (98-107); CO2 24 mmol/L (21-32); CREATININE 0.8 mg/dL (0.55-1.02); GLUCOSE,RANDOM 129 mg/dL (74-106); POTASSIUM 3.7 mmol/L (3.5-5.1); SGOT/AST 13 U/L (15-37); SGPT/ALT 12 U/L (12-78); SODIUM 145 mmol/L (136-145); TOT PROT 5.7 g/dl (6.4-8.2)
[2017-10-26 11:12] LABS: ALK PHOS 90 U/L (45-117)
--- NOTE | 2017-10-26 11:56 | HP ---
Admitting History and Physical - Primary Care Physician PCP: Antony Cortes - Admission Chief Complaint: bloody BM's History of Present Illness: This is a 67 year old female with HTN, asthma, chronic Headaches, diverticular disease, OA of spine, GERD, "bleeding ulcer" at age of 8, prior admission in February 2016 with diverticular bleed who presents with dark red ("almost black") blood per rectum since Monday. She describes a large volume of blood ("pouring out"). She then developed epigastric abdominal burning pain yesterday before she noted dark stools. She notes that she ran out of her omeprazole on Monday. She feels lightheaded and weak. She denies chest pain or shortness of breath but feels weak. She drinks only occasional alcohol. She does take DICLOFENAC for her chronic LBP and also takes KCL & Cymbalta (neither are new). She has been taking irno when the bleeding began. She had an episode of GI bleed (dark stools) in late 2016, which did not require hospitalization and was Tx'd medically. 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) - Past Surgical History Additional Past Surgical History: spinal surgery in 2017; cranial surg at age 13 Lt humerous surg for Fx kyphoplasty ov cyst surgery - Smoking History Smoking history: Former smoker Have you smoked in the past 12 months: No Aproximately how many cigarettes per day: 0 If you are a former smoker, when did you quit?: 01/2014 - Alcohol/Substance Use Hx Alcohol Use: Yes (WINE WITH DINNER) History of Substance Use: reports: None - Social History Usual Living Arrangement: Yes: With Spouse ADL: Independent 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 History of Recent Travel: No Home Medications - Allergies Allergies/Adverse Reactions: Allergies Allergy/AdvReac Type Severity Reaction Status Date / Time morphine Allergy Severe VOMITING,HALLUCINATIONS, Verified 10/26/17 09:57 WAS TOLD TO NEVER TAKE IT AGAIN - Home Medications Home Medications: Ambulatory Orders B-Complex with Vitamin C [B-Complex with C] 1 each PO DAILY 02/01/16 Calcium Carb, Citrate/Vit D3 [Calcium + D3 ER Tablet] 1 each PO DAILY 02/01/16 Cholecalciferol (Vitamin D3) [D3-2000] 2,000 unit PO DAILY 02/01/16 Cyanocobalamin [Vitamin B12 -] 500 mcg PO DAILY 02/01/16 Mirtazapine 30 mg PO HS 02/01/16 Multivitamin [Poly-Vitamin] 1 each PO DAILY 02/01/16 Topiramate 100 mg PO BID 02/01/16 Duloxetine HCl [Cymbalta -] 30 mg PO HS 01/05/17 Potassium Chloride [Klor-Con] 20 meq PO DAILY 01/05/17 Vitamin E 400 unit PO DAILY 01/05/17 Prednisone 10 mg PO DAILY 01/16/17 Acetaminophen with Codeine [Tylenol with Codeine #3 Tablet] 1 each PO BID PRN # 30 tablet MDD 2 01/18/17 Albuterol Sulfate Inhaler - [Ventolin HFA Inhaler -] 1 puff IH QID PRN #0 inhaler 01/18/17 Diazepam [Valium] 5 mg PO DAILY PRN #20 tablet NS MDD 1 01/18/17 Topiramate [Topamax -] 100 mg PO BID tablet 01/18/17 Family Disease History - Family Disease History Family Disease History: Heart Disease: Mother, CA: Mother Review of Systems - Review of Systems Constitutional: reports: Weakness Eyes: reports: No Symptoms HENT: reports: No Symptoms Neck: reports: No Symptoms Cardiovascular: reports: No Symptoms Respiratory: reports: No Symptoms Gastrointestinal: reports: Abdominal Pain (see hpi) Genitourinary: reports: No Symptoms Breasts: reports: No Symptoms Reported Musculoskeletal: reports: Back Pain Integumentary: reports: No Symptoms Neurological: reports: No Symptoms Endocrine: reports: No Symptoms Hematology/Lymphatic: reports: No Symptoms Psychiatric: reports: Anxiety Physical Examination Vital Signs: Vital Signs Temperature 97.8 F 10/26/17 09:57 Pulse Rate 103 H 10/26/17 09:57 Respiratory Rate 16 10/26/17 09:57 Blood Pressure 151/53 10/26/17 09:57 O2 Sat by Pulse Oximetry (%) 100 10/26/17 10:20 Constitutional: Yes: Well Nourished, Calm, Pallor Eyes: Yes: WNL HENT: Yes: WNL Neck: Yes: WNL Cardiovascular: Yes: Tachycardia Respiratory: Yes: CTA Bilaterally Gastrointestinal: Yes: Soft, Rectal Bleeding, Tenderness (epigastric, non rebound) Renal/: Yes: WNL Musculoskeletal: Yes: Back Pain Extremities: Yes: WNL Edema: No Peripheral Pulses WNL: Yes Integumentary: Yes: WNL Neurological: Yes: WNL, Alert, Oriented ...Motor Strength: WNL Psychiatric: Yes: WNL Labs: CBC, BMP 10/26/17 10:24 10/26/17 10:30 EKG: sinus tach; with RBBB (not new) CXR--NAP Imaging - Results Chest X-ray: Report Reviewed EKG: Report Reviewed Problem List - Problems (1) GI bleeding Assessment/Plan: likely upper GI bleed but cannot r/o divertic bleeding as was previously the case :PLAN: Iv PPI; Transfuse; keep NPO; serial CBC Code(s): K92.2 - GASTROINTESTINAL HEMORRHAGE, UNSPECIFIED Qualifiers: GI bleed type/associated pathology: melena Qualified Code(s): K92.1 - Melena (2) Anemia due to blood loss, acute Assessment/Plan: from GI bleed; Hgb is 5.9; will need to raise counts before doing endoscopy PLAN : transfuse Code(s): D62 - ACUTE POSTHEMORRHAGIC ANEMIA (3) Asthma Assessment/Plan: will resume Albuterol and Flovent; give PRN Tx Code(s): J45.909 - UNSPECIFIED ASTHMA, UNCOMPLICATED Qualifiers: Asthma severity: mild Asthma complication type: uncomplicated (4) Low back pain Assessment/Plan: chronic; remedied with use of NSAIDs Code(s): M54.5 - LOW BACK PAIN Qualifiers: Chronicity: chronic Back pain laterality: right Sciatica presence: without sciatica Qualified Code(s): M54.5 - Low back pain; G89.29 - Other chronic pain; G89.29 - Other chronic pain (5) Hypertension Assessment/Plan: not in need of BP meds at this time Code(s): I10 - ESSENTIAL (PRIMARY) HYPERTENSION Qualifiers: Hypertension type: essential hypertension Qualified Code(s): I10 - Essential (primary) hypertension (6) Right bundle branch block (RBBB) Assessment/Plan: not new Code(s): I45.10 - UNSPECIFIED RIGHT BUNDLE-BRANCH BLOCK (7) Chronic headaches Assessment/Plan: 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 H/a's controlled with cymbalta and Topiramate Code(s): R51 - HEADACHE Qualifiers: Headache type: unspecified Intractability: not intractable Qualified Code (s): R51 - Headache (8) Osteoporosis Assessment/Plan: established; did not fare well with use of Biphosphonates (2nd asept necrosis of Lt Humaral head); just on Vit D and calcium Code(s): M81.0 - AGE-RELATED OSTEOPOROSIS W/O CURRENT PATHOLOGICAL FRACTURE Qualifiers: Osteoporosis type: unspecified (9) Anxiety Assessment/Plan: resume anxiolytics Code(s): F41.9 - ANXIETY DISORDER, UNSPECIFIED Assessment/Plan This is a 67 year old female with multiple co-morbities now with significant GI bleed requiring multiple unit transfusion and will likley need GI procedure once stable. Will admit to ICU; discussed with Dr Mujica ~~~~~~~~~~~~~~~ Dr Cortes.
[2017-10-26] MEDS ORDERED: ALBUTEROL SO4 0.083% IH SOL 2.5 MG/3 ML VIAL.NEB. NEB PRN (12:32)
[2017-10-26] MEDS ORDERED: ALBUTEROL SO4 18 GM HFA INHALER IH PRN (12:33)
--- NOTE | 2017-10-26 12:41 | CON.GI ---
Consult Consult Specialty:: Gastroenterology Referred by:: Dr. Cortes Reason for Consultation:: GI bleed - History of Present Illness Chief Complaint: Epigastric pain and bloody stools since 10/22 History of Present Illness: 67F developed bloody red BMs on 10/22 associated with epigastric burning pain. NO vomiting but has had black stools daily. Today she had a large black BM and began to feel dizzy. She takes Voltaren for LBP due to spinal stenosis despite a lumbar laminectomy/fusion done in . She has a h/o diverticular bleeding and had an EGD and colonoscopy with Dr. Arteaga on 02/04/16 which revealed that the bleed was diverticular in origin. He also removed a rectal adenoma. The EGD revealed duodenal AVMs. She tells me that she had a "ulcer bleed" at age 8. She ran out of her PPI last week. 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) - Past Surgical History Past Surgical History: Yes: Cataract Removal, Colonoscopy, Craniotomy (for "benign tumor" age 13 which has recurred), Upper Endoscopy Additional Surgical History: Left ovarian cystectomy - Alcohol/Substance Use Hx Alcohol Use: Yes (WINE WITH DINNER) History of Substance Use: reports: None - Smoking History Smoking history: Former smoker Have you smoked in the past 12 months: No Aproximately how many cigarettes per day: 0 If you are a former smoker, when did you quit?: 01/2014 - Social History Usual Living Arrangement: With Spouse ADL: Independent 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 Place of : [facility] [place] History of Recent Travel: No Home Medications - Allergies Allergies/Adverse Reactions: Allergies Allergy/AdvReac Type Severity Reaction Status Date / Time morphine Allergy Severe VOMITING,HALLUCINATIONS, Verified 10/26/17 09:57 WAS TOLD TO NEVER TAKE IT AGAIN - Home Medications Home Medications: Ambulatory Orders B-Complex with Vitamin C [B-Complex with C] 1 each PO DAILY 02/01/16 Calcium Carb, Citrate/Vit D3 [Calcium + D3 ER Tablet] 1 each PO DAILY 02/01/16 Cholecalciferol (Vitamin D3) [D3-2000] 2,000 unit PO DAILY 02/01/16 Cyanocobalamin [Vitamin B12 -] 500 mcg PO DAILY 02/01/16 Mirtazapine 30 mg PO HS 02/01/16 Multivitamin [Poly-Vitamin] 1 each PO DAILY 02/01/16 Topiramate 100 mg PO BID 02/01/16 Duloxetine HCl [Cymbalta -] 30 mg PO HS 01/05/17 Potassium Chloride [Klor-Con] 20 meq PO DAILY 01/05/17 Vitamin E 400 unit PO DAILY 01/05/17 Prednisone 10 mg PO DAILY 01/16/17 Acetaminophen with Codeine [Tylenol with Codeine #3 Tablet] 1 each PO BID PRN # 30 tablet MDD 2 01/18/17 Albuterol Sulfate Inhaler - [Ventolin HFA Inhaler -] 1 puff IH QID PRN #0 inhaler 01/18/17 Diazepam [Valium] 5 mg PO DAILY PRN #20 tablet NS MDD 1 01/18/17 Topiramate [Topamax -] 100 mg PO BID tablet 01/18/17 Family Disease History - Family Disease History Family Disease History: Heart Disease: Father ( during CABG age 67), Mother ( [place] age 85), Brother (morbid obesity) Review of Systems - Review of Systems Constitutional: reports: Weakness Eyes: reports: No Symptoms HENT: reports: No Symptoms Neck: reports: No Symptoms Cardiovascular: reports: Shortness of Breath Respiratory: reports: Exercise Intolerance, SOB on Exertion Gastrointestinal: reports: Abdominal Pain, Melena Genitourinary: reports: No Symptoms Musculoskeletal: reports: Back Pain Psychiatric: reports: Anxiety Physical Exam-GI Vital Signs: Vital Signs Temperature 97.8 F 10/26/17 09:57 Pulse Rate 103 H 10/26/17 09:57 Respiratory Rate 16 10/26/17 09:57 Blood Pressure 151/53 10/26/17 09:57 O2 Sat by Pulse Oximetry (%) 100 10/26/17 10:20 CBC,CMP WBC 12.0 K/mm3 (4.0-10.0) H D 10/26/17 10:24 RBC 2.17 M/mm3 (3.60-5.2) L D 10/26/17 10:24 Hgb 5.9 GM/dL (10.7-15.3) L* D 10/26/17 10:24 Hct 18.5 % (32.4-45.2) L D 10/26/17 10:24 MCV 85.2 fl (80-96) 10/26/17 10:24 MCH 27.2 pg (25.7-33.7) 10/26/17 10:24 MCHC 31.9 g/dl (32.0-36.0) L 10/26/17 10:24 RDW 15.9 % (11.6-15.6) H D 10/26/17 10:24 Plt Count 274 K/MM3 (134-434) D 10/26/17 10:24 MPV 8.7 fl (7.5-11.1) 10/26/17 10:24 Neutrophils % 66.9 % (42.8-82.8) 10/26/17 10:24 Lymphocytes % 21.8 % (8-40) 10/26/17 10:24 Monocytes % 9.0 % (3.8-10.2) 10/26/17 10:24 Eosinophils % 1.3 % (0-4.5) D 10/26/17 10:24 Basophils % 1.0 % (0-2.0) 10/26/17 10:24 Sodium 145 mmol/L (136-145) 10/26/17 10:30 Potassium 3.7 mmol/L (3.5-5.1) 10/26/17 10:30 Chloride 114 mmol/L (98-107) H 10/26/17 10:30 Carbon Dioxide 24 mmol/L (21-32) 10/26/17 10:30 Anion Gap 7 (8-16) L 10/26/17 10:30 BUN 18 mg/dL (7-18) 10/26/17 10:30 Creatinine 0.8 mg/dL (0.55-1.02) 10/26/17 10:30 Creat Clearance w eGFR > 60 (>60) 10/26/17 10:30 Random Glucose 129 mg/dL (74-106) H 10/26/17 10:30 Calcium 8.8 mg/dL (8.5-10.1) 10/26/17 10:30 Total Bilirubin 0.1 mg/dL (0.2-1.0) L D 10/26/17 10:30 AST 13 U/L (15-37) L 10/26/17 10:30 ALT 12 U/L (12-78) 10/26/17 10:30 Alkaline Phosphatase 90 U/L (45-117) 10/26/17 10:30 Total Protein 5.7 g/dl (6.4-8.2) L 10/26/17 10:30 Albumin 3.3 g/dl (3.4-5.0) L 10/26/17 10:30 Current Medications Generic Name Dose Route Start Last Admin Trade Name Freq PRN Reason Stop Dose Admin Albuterol Sulfate 1 amp 10/26/17 12:32 Ventolin 0.083% Nebulizer Soln - NEB Q8H PRN SHORT OF BREATH/WHEEZING Albuterol Sulfate 2 puff 10/26/17 12:33 Ventolin Hfa Inhaler - IH Q6H PRN SHORT OF BREATH/WHEEZING Duloxetine HCl 60 mg 10/27/17 10:00 Cymbalta - PO DAILY DMITRIY Pantoprazole Sodium 80 mg/ 100 mls @ 10 mls/hr 10/26/17 10:30 10/26/17 10:31 Sodium Chloride IVPB 10 mls/hr Q10H DMITRIY Administration 8 MG/HR Potassium Chloride/Dextrose/Sod Cl 10 meq in 1,000 mls @ 50 mls/hr 10/26/17 12 :45 D5-1/2ns+10 Meq Kcl - IV ASDIR DMITRIY Mirtazapine 30 mg 10/26/17 22:00 Remeron - PO HS DMITRIY Topiramate 100 mg 10/26/17 22:00 Topamax - PO BID DMITRIY Constitutional: Yes: Calm, Other (pale) Eyes: Yes: Conjunctiva Clear HENT: Yes: Normocephalic Neck: Yes: Supple Cardiovascular: Yes: Regular Rate and Rhythm, Tachycardia Respiratory: Yes: CTA Bilaterally Gastrointestinal Inspection: Yes: Scars (healed Pfannensteil incision) ...Auscultate: Yes: Hyperactive Bowel Sounds ...Palpate: Yes: Soft, Tenderness, Epigastium (no peritoneal signs) ...Rectal Exam: Yes: Guaiac Positive (marroon stool) Musculoskeletal: Yes: Back Pain Edema: No Peripheral Pulses WNL: Yes Neurological: Yes: Alert Psychiatric: Yes: Alert Labs: CBC, BMP 10/26/17 10:24 10/26/17 10:30 INR, PTT INR 1.18 (0.82-1.09) H 10/26/17 10:30 Laboratory Tests 10/26/17 10/26/17 10:30 10:30 INR 1.18 H BUN 18 Creatinine 0.8 Problem List - Problems (1) GI bleeding Assessment/Plan: I suspect that Sylvie is bleeding from a NSAID induced gastric or duodenal bulb ulcer. She needs to be resuscitated before we can undertake an EGD. She may alternatively be bleeding from her AVMs. I have discussed EGD in detail and informed her of the risks of perforation and worsening of her hemorrhage. She has verbally consented. Agree with PPI drip in the interim. She may need a colonoscopy if no UGI source is found. Code(s): K92.2 - GASTROINTESTINAL HEMORRHAGE, UNSPECIFIED Qualifiers: GI bleed type/associated pathology: melena Qualified Code(s): K92.1 - Melena (2) Colon adenoma Code(s): D12.6 - BENIGN NEOPLASM OF COLON, UNSPECIFIED (3) Diverticulosis Code(s): K57.90 - DVRTCLOS OF INTEST, PART UNSP, W/O PERF OR ABSCESS W/O BLEED (4) History of peptic ulcer Code(s): Z87.11 - PERSONAL HISTORY OF PEPTIC ULCER DISEASE (5) Anemia due to blood loss, acute Code(s): D62 - ACUTE POSTHEMORRHAGIC ANEMIA Assessment/Plan TRansfuse PPI drip EGD tomorrow or sooner if necessary
[2017-10-26] MEDS: D5-1/2NS+10 MEQ KCL - 10 MEQ/1,000 ML INFUS.BAG IV SCH (13:05)
--- NOTE | 2017-10-26 13:50 | CONSULT ---
Consultation: REQUESTING PROVIDER: Rachel Aj CONSULT REQUEST: We have been asked to medically evaluate this patient for GI Bleed. HISTORY OF PRESENT ILLNESS: Patient is a 67 year old female with a PMHx of Diverticulitis, GERD, Duodenal AVM's, Asthma, arthritis, Anxiety, depression who presents today complaining of a bright red rectal bleeding that initially started on Monday (10/21/17). Patient reports the bleeding continued every time she used the restroom until Monday (10/23) morning. The bleeding stopped for a day and then returned the next day on Monday (10/24/17) but this time the color was darker ssociated with mid-epigastric pain. Patient states she also had dizziness every time she stood up and weakness. The bleeding continued and worsened overnight with now clots forming, which prompted this ED visit. Patient states she thought it was her diverticulitis and did not want to come to the hospital for it. Patient does report taking NSAID's (Voltarin 50mg BID) for over a month now due to her arthritis and back pain. However, she discontinued the medication on Monday () when she noticed the bleeding. Patient does report having a colonoscopy done two years ago, when she was admitted here for Hematochezia which revealed no active bleeding. Patient otherwise, denies fever, chills, nausea, vomiting, chest pain, headaches , loss of consciousness. PMHx: Diverticulitis, Arthritis, Asthma, Brain tumor, Depression PSHx: Craniotomy x2 (13 year old), Vertebroplasty procedure, Laminectomy (2016), left elbow percutaneous tenotomy (02/04/15), Left Ovarian cystectomy, Cataract removal Social History: Former Smoker (Started at age 11 and quit 3 years ago), Denies alcohol or drugs. 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 Lives with . Allergies: Morphine (Reports she is unable to breathe after taking it) Medications: Home Medication List Medication Instructions Recorded Confirmed Type B-Complex with Vitamin C 1 each PO DAILY 02/01/16 01/16/17 History [B-Complex with C] Calcium Carb, Citrate/Vit D3 1 each PO DAILY 02/01/16 01/16/17 History [Calcium + D3 ER Tablet] Cholecalciferol (Vitamin D3) 2,000 unit PO DAILY 02/01/16 01/16/17 History [D3-2000] Cyanocobalamin [Vitamin B12 -] 500 mcg PO DAILY 02/01/16 01/16/17 History Mirtazapine 30 mg PO HS 02/01/16 01/16/17 History Multivitamin [Poly-Vitamin] 1 each PO DAILY 02/01/16 01/16/17 History Topiramate 100 mg PO BID 02/01/16 01/16/17 History Duloxetine HCl [Cymbalta -] 30 mg PO HS 01/05/17 01/16/17 History Potassium Chloride [Klor-Con] 20 meq PO DAILY 01/05/17 01/16/17 History Vitamin E 400 unit PO DAILY 01/05/17 01/16/17 History Prednisone 10 mg PO DAILY 01/16/17 01/16/17 History REVIEW OF SYSTEMS: CONSTITUTIONAL: generalized weakness, malaise Absent: fever, chills, diaphoresis, loss of appetite, weight change HEENT: Absent: rhinorrhea, nasal congestion, throat pain, throat swelling, difficulty swallowing, mouth swelling, ear pain, eye pain, visual changes CARDIOVASCULAR: palpitations Absent: chest pain, syncope, irregular heart rate, lightheadedness, peripheral edema RESPIRATORY: Absent: cough, shortness of breath, dyspnea with exertion, orthopnea, wheezing, stridor, hemoptysis GASTROINTESTINAL: hematochezia abdominal pain, abdominal distension Absent: nausea, vomiting, diarrhea, constipation, melena GENITOURINARY: Absent: dysuria, frequency, urgency, hesitancy, hematuria, flank pain, genital pain MUSCULOSKELETAL: Absent: myalgia, arthralgia, joint swelling, back pain, neck pain SKIN: Absent: rash, itching, pallor HEMATOLOGIC/IMMUNOLOGIC: Absent: easy bleeding, easy bruising, lymphadenopathy, frequent infections ENDOCRINE: Absent: unexplained weight gain, unexplained weight loss, heat intolerance, cold intolerance NEUROLOGIC: Absent: headache, focal weakness or paresthesias, dizziness, unsteady gait, seizure, mental status changes, bladder or bowel incontinence PSYCHIATRIC: Absent: anxiety, depression, suicidal or homicidal ideation, hallucinations. PHYSICAL EXAMINATION Vital Signs - 24 hr 10/26/17 10/26/17 10/26/17 09:57 10:20 12:40 Temperature 97.8 F 98.4 F Pulse Rate 103 H Pulse Rate [ 100 H Apical] Respiratory 16 18 Rate Blood Pressure 151/53 Blood Pressure 120/81 [Left Arm] O2 Sat by Pulse 100 100 100 Oximetry (%) 10/26/17 12:55 Temperature 98.4 F Pulse Rate Pulse Rate [ 100 H Apical] Respiratory 18 Rate Blood Pressure Blood Pressure 116/92 [Left Arm] O2 Sat by Pulse 100 Oximetry (%) GENERAL: Awake, alert, Pale, and fully oriented, in no acute distress. HEAD: Normal with no signs of trauma. EYES: Pupils equal, round and reactive to light, extraocular movements intact, sclera anicteric, conjunctiva clear. EARS, NOSE, THROAT: Oropharynx clear without exudates. Moist mucous membranes. NECK: Normal range of motion, supple without lymphadenopathy, JVD, or masses. LUNGS: Breath sounds equal, clear to auscultation bilaterally. No wheezes, and no crackles. No accessory muscle use. HEART: Tachycardic with regular rhythm, normal S1 and S2 without murmur, rub or gallop. ABDOMEN Inspection: non-distended ABDOMEN Auscultation: Hyperactive bowel sounds ABDOMEN Palpation: Mild epigastric tenderness, no guarding or rebound tenderness MUSCULOSKELETAL: Normal range of motion at all joints. No bony deformities or tenderness. No CVA tenderness. UPPER EXTREMITIES: No peripheral edema. LOWER EXTREMITIES: No peripheral edema. NEUROLOGICAL: Cranial nerves II-XII intact. Normal speech. Motor strength 5/5 bilaterally, sensory intact PSYCHIATRIC: Cooperative. Good eye contact. Appropriate mood and affect. SKIN: Warm, dry, normal turgor Laboratory Results CBC, BMP 10/26/17 10:24 10/26/17 10:30 10/26/17 10/26/17 10/26/17 10:30 10:30 10:30 INR 1.18 H Albumin 3.3 L Stool Occult Blood Positive Active Medications Generic Name Dose Route Start Last Admin Trade Name Freq PRN Reason Stop Dose Admin Albuterol Sulfate 1 amp 10/26/17 12:32 Ventolin 0.083% Nebulizer Soln - NEB Q8H PRN SHORT OF BREATH/WHEEZING Albuterol Sulfate 2 puff 10/26/17 12:33 Ventolin Hfa Inhaler - IH Q6H PRN SHORT OF BREATH/WHEEZING Duloxetine HCl 60 mg 10/27/17 10:00 Cymbalta - PO DAILY DMITRIY Pantoprazole Sodium 80 mg/ 100 mls @ 10 mls/hr 10/26/17 10:30 10/26/17 10:31 Sodium Chloride IVPB 10 mls/hr Q10H DMITRIY Administration 8 MG/HR Potassium Chloride/Dextrose/Sod Cl 10 meq in 1,000 mls @ 50 mls/hr 10/26/17 12 :45 10/26/17 13:05 D5-1/2ns+10 Meq Kcl - IV 50 mls/hr ASDIR DMITRIY Administration Mirtazapine 30 mg 10/26/17 22:00 Remeron - PO HS DMITRIY Topiramate 100 mg 10/26/17 22:00 Topamax - PO BID DMITRIY IMAGES: Chest X-Ray (10/26/17): No acute pathology ASSESSMENT/PLAN: Patient is a 67 year old female who presented with bloody red bowel movements and was found to have a GI bleed with a low hemoglobin. Patient admitted to ICU for further monitoring and management. Gastrointestinal #GI Bleed -High suspicion for upper GI bleed secondary to NSAID use as patient is currently taking Voltarin 50mg BID (NSAID) for back pain causing a possible duodenal/Gastric Ulcer. -Patient is currently hemodynamically stable with only tachycardia (between 98- 105). Patient currently normotensive. Will need to have continuous Vital sign monitoring. -2 Large bore IV lines -Continue IV fluids for resuscitation. Monitor UOP -Protonix drip -NPO -Continue PRBC transfusion -Spoke to GI who will do EGD tomorrow once patient receives PRBC's and hemoglobin is stable Hematology #Acute Blood Loss Anemia -Secondary to GI bleed -Hemoglobin of 5.9 -Continue PRBC transfusion -Will repeat Hgb this evening Pulmonology #Asthma -Albuterol PRN -Continue 02 monitoring Neurology #History of Brain Tumor -Continue Anti-Seizure medication Topamax 100mg BID Psych #Anxiety/Depression -Continue home medication Remeron 30mg HS -Continue home medication Cymbalta 60mg daily F/E/N -IV D5-1/2 @50mls/hr -Electrolytes wnl -NPO Prophylaxis -No DVT prophylaxis due to GI bleed -Protonix drip for GI Disposition -Full code -Patient currently receiving PRBC's and will have EGD tomorrow. Visit type - Emergency Visit Emergency Visit: Yes ED Registration Date: 10/26/17 Care time: The patient presented to the Emergency Department on the above date and was hospitalized for further evaluation of their emergent condition. - New Patient This patient is new to me today: Yes Date on this admission: 10/26/17 - Critical Care Critical Care patient: Yes Total Critical Care Time (in minutes): 45 Critical Care Statement: The care of this patient involved high complexity decision making to prevent further life threatening deterioration of the patient 's condition and/or to evaluate & treat vital organ system(s) failure or risk of failure.
--- NOTE | 2017-10-26 14:33 | EKG ---
Test Reason : Blood Pressure : / mmHG Vent. Rate : 101 BPM Atrial Rate : 101 BPM P-R Int : 000 ms QRS Dur : 144 ms QT Int : 398 ms P-R-T Axes : 007 -28 021 degrees QTc Int : 516 ms SINUS TACHYCARDIA RIGHT BUNDLE BRANCH BLOCK MINIMAL VOLTAGE CRITERIA FOR LVH, MAY BE NORMAL VARIANT ABNORMAL ECG WHEN COMPARED WITH ECG OF 01-FEB-2016 18:31, QUESTIONABLE CHANGE IN QRS AXIS Confirmed by JULIAN PALACIO, MARIA DE JESUS ([id number]) on 10/26/2017 2:33:16 PM Referred By: Confirmed By:MARIA DE JESUS JORDAN MD
--- NOTE | 2017-10-26 15:31 | CONSULT ---
Consult Consult Specialty:: PULM/CCM Referred by:: ER Reason for Consultation:: GI Bleed - History of Present Illness Chief Complaint: GI bleeding History of Present Illness: 67 F, Diverticulitis, GERD, Duodenal AVM's with previous history of GI Bleed, Asthma, arthritis with history of spinal fusion for which she takes NSAIDs. Admitted via the ER due to bight red blood per rectum that started on Monday. She reports abdominal discomfort as well. No fever or chills. No CP or SOB. No hemoptysis or hematuria. 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) - Past Surgical History Past Surgical History: Yes: Cataract Removal, Colonoscopy, Craniotomy (for "benign tumor" age 13 which has recurred), Upper Endoscopy Additional Surgical History: Left ovarian cystectomy - Alcohol/Substance Use Hx Alcohol Use: Yes (WINE WITH DINNER) History of Substance Use: reports: None - Smoking History Smoking history: Former smoker Have you smoked in the past 12 months: No Aproximately how many cigarettes per day: 0 If you are a former smoker, when did you quit?: 01/2014 - Social History Usual Living Arrangement: With Spouse ADL: Independent 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 History of Recent Travel: No Home Medications - Allergies Allergies/Adverse Reactions: Allergies Allergy/AdvReac Type Severity Reaction Status Date / Time morphine Allergy Severe VOMITING,HALLUCINATIONS, Verified 10/26/17 09:57 WAS TOLD TO NEVER TAKE IT AGAIN - Home Medications Home Medications: Ambulatory Orders B-Complex with Vitamin C [B-Complex with C] 1 each PO DAILY 02/01/16 Calcium Carb, Citrate/Vit D3 [Calcium + D3 ER Tablet] 1 each PO DAILY 02/01/16 Cholecalciferol (Vitamin D3) [D3] 2,000 unit PO DAILY 02/01/16 Cyanocobalamin [Vitamin B12 -] 500 mcg PO DAILY 02/01/16 Mirtazapine 30 mg PO HS 02/01/16 Multivitamin [Poly-Vitamin] 1 each PO DAILY 02/01/16 Topiramate 100 mg PO BID 02/01/16 Duloxetine HCl [Cymbalta -] 30 mg PO HS 01/05/17 Potassium Chloride [Klor-Con] 20 meq PO DAILY 01/05/17 Vitamin E 400 unit PO DAILY 01/05/17 Prednisone 10 mg PO DAILY 01/16/17 Acetaminophen with Codeine [Tylenol with Codeine #3 Tablet] 1 each PO BID PRN # 30 tablet MDD 2 01/18/17 Albuterol Sulfate Inhaler - [Ventolin HFA Inhaler -] 1 puff IH QID PRN #0 inhaler 01/18/17 Diazepam [Valium] 5 mg PO DAILY PRN #20 tablet NS MDD 1 01/18/17 Topiramate [Topamax -] 100 mg PO BID tablet 01/18/17 Family Disease History - Family Disease History Family Disease History: Heart Disease: Father ( during CABG age 67), Mother ( [place] age 85), Brother (morbid obesity) Review of Systems - Review of Systems Constitutional: denies: Chills, Fever, Night Sweats Eyes: reports: No Symptoms HENT: reports: No Symptoms Neck: reports: No Symptoms Cardiovascular: reports: No Symptoms Respiratory: reports: No Symptoms Gastrointestinal: reports: Abdominal Pain, Rectal Bleeding. denies: Vomiting Blood Genitourinary: reports: No Symptoms Breasts: reports: No Symptoms Reported Musculoskeletal: reports: No Symptoms Integumentary: reports: No Symptoms Neurological: reports: No Symptoms Endocrine: reports: No Symptoms Hematology/Lymphatic: reports: No Symptoms Psychiatric: reports: No Symptoms Physical Exam Vital Signs: Vital Signs Temperature 98.3 F 10/26/17 15:05 Pulse Rate 78 10/26/17 15:05 Respiratory Rate 18 10/26/17 15:05 Blood Pressure 116/68 10/26/17 15:05 O2 Sat by Pulse Oximetry (%) 100 10/26/17 15:05 Constitutional: Yes: No Distress, Calm Eyes: Yes: Conjunctiva Clear, EOM Intact HENT: Yes: Atraumatic, Normocephalic, Tonsillar Exudate Neck: Yes: Supple Cardiovascular: Yes: Regular Rate and Rhythm Respiratory: Yes: Regular. No: Accessory Muscle Use Gastrointestinal: Yes: Normal Bowel Sounds, Soft, Rectal Bleeding. No: Palpable Mass, Pulsatile Mass Renal/: Yes: WNL Musculoskeletal: Yes: WNL Extremities: Yes: WNL Edema: No Peripheral Pulses WNL: Yes Integumentary: Yes: WNL Neurological: Yes: WNL, Alert, Oriented ...Motor Strength: WNL Psychiatric: Yes: WNL, Alert, Oriented Labs: CBC, BMP 10/26/17 10:24 10/26/17 10:30 Imaging - Results Chest X-ray: Report Reviewed, Image Reviewed Assessment/Plan IMP: Acute blood loss anemia due to GI bleeding Above listed history PLAN: pRBCs transfusion Normal transfusion thresholds GI evaluation noted O2 as needed Mechanical VTE prophylaxis IVF NPO Noted PPI drip has been started ICU monitoring Dr Mujica Critical care time spent in reviewing chart, evaluating patient and formulating plan - 36 minutes.
[2017-10-26] MEDS ORDERED: PANTOPRAZOLE SODIUM 160 MG in DEXTROSE 5%-WATER - 290 ML IVPB SCH (19:30)
[2017-10-26] MEDS ORDERED: MIRTAZAPINE 15 MG TABLET (FP) ONE (21:13)
[2017-10-26] MEDS: MIRTAZAPINE 30 MG TABLET (FP) PO SCH (21:15)
[2017-10-26] MEDS: TOPIRAMATE 100 MG TABLET PO SCH (21:15)
[2017-10-26 21:25] LABS: MCH 28.7 pg (25.7-33.7); MCHC 33.8 g/dl (32.0-36.0); MEAN CELL VOLUME 84.9 fl (80-96); MEAN PLT VOLUME 8.7 fl (7.5-11.1); PLATELET COUNT 193 K/MM3 (134-434); RBC 2.31 M/mm3 (3.60-5.2); WHITE BLOOD COUNT 10.3 K/mm3 (4.0-10.0)
[2017-10-26 21:35] LABS: HEMATOCRIT 19.6 % (32.4-45.2); HEMOGLOBIN 6.6 GM/dL (10.7-15.3)
[2017-10-27 08:30] LABS: HEMATOCRIT 25.2 % (32.4-45.2); HEMOGLOBIN 8.7 GM/dL (10.7-15.3); MCH 28.9 pg (25.7-33.7); MCHC 34.3 g/dl (32.0-36.0); MEAN CELL VOLUME 84.3 fl (80-96); MEAN PLT VOLUME 8.3 fl (7.5-11.1); PLATELET COUNT 186 K/MM3 (134-434); RBC 2.99 M/mm3 (3.60-5.2); WHITE BLOOD COUNT 9.6 K/mm3 (4.0-10.0)
[2017-10-27 08:55] LABS: ALBUMIN 2.8 g/dl (3.4-5.0); ALK PHOS 81 U/L (45-117); ANION GAP 10 (8-16); BILIRUBIN,TOTAL 1.6 mg/dL (0.2-1.0); BLOOD UREA NITROGEN 15 mg/dL (7-18); CALCIUM 7.9 mg/dL (8.5-10.1); CHLORIDE 114 mmol/L (98-107); CO2 23 mmol/L (21-32); CREATININE 0.7 mg/dL (0.55-1.02); GLUCOSE,RANDOM 97 mg/dL (74-106); POTASSIUM 3.6 mmol/L (3.5-5.1); SGOT/AST 11 U/L (15-37); SGPT/ALT 16 U/L (12-78); SODIUM 147 mmol/L (136-145); TOT PROT 5.1 g/dl (6.4-8.2)
[2017-10-27] MEDS ORDERED: DULoxetine HCL 60 MG CAPSULE.DR PO SCH ×2 (10:00→22:00)
[2017-10-27] MEDS ORDERED: PROPOFOL 20 ML ONE ×2 (10:35)
--- NOTE | 2017-10-27 10:42 | CONSULT ---
Consult Consult Specialty:: General Surgery Referred by:: Antony Cortes MD Reason for Consultation:: GI Bleed - History of Present Illness Chief Complaint: LGIB History of Present Illness: 67 yo female HTN, asthma, chronic Headaches, diverticular disease, OA of spine, GERD, "bleeding ulcer" at age of 8, prior admission in February 2016 with diverticular bleed who presents with dark blood per rectum since Monday. She describes a large volume of blood. She then developed epigastric abdominal burning pain yesterday before she noted dark stools. She notes that she ran out of her omeprazole on Monday. She feels lightheaded and weak. She denies chest pain or shortness of breath but feels weak. She drinks only occasional alcohol. She does take DICLOFENAC for her chronic LBP and also takes KCL & Cymbalta ( neither are new). She has been taking irno when the bleeding began. She had an episode of GI bleed (dark stools) in late 2016, which did not require hospitalization and was treated non operatively. She has been passing dark BMs for past 5 days. She is currently in the ICU and has received 4 RBC after presenting with H&H 12/23 and has responded approprriately on f/u labs. Upper endoscopy today, [address] Mujica did not localize an upper GI source of bleeding. She has a history of diverticular bleed, endoscopy 02/04/[address] Glasgow shows moderated to severe divertulosis concentrated in the sigmoid colon with scattered diverticulum throughout the colon. We were called to assess. 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) Cardio/Vascular: Yes: HTN Pulmonary: Yes: Asthma Gastrointestinal: Yes: Diverticulosis, GERD, Other (rectal adenoma removed 01/20 , duodenal AVMs) Renal/: Yes: Renal Calculi ...: No Psych: Yes: Anxiety, Depression Musculoskeletal: Yes: Chronic low back pain, Osteoarthritis, Other ( osteoporosis osteonecrosis of the Lt humerous multiple tendonitides) - Past Surgical History Past Surgical History: Yes: Cataract Removal, Colonoscopy, Craniotomy (for "benign tumor" age 13 which has recurred), Upper Endoscopy Additional Surgical History: Left ovarian cystectomy - Alcohol/Substance Use Hx Alcohol Use: Yes (WINE WITH DINNER) History of Substance Use: reports: None - Smoking History Smoking history: Former smoker Have you smoked in the past 12 months: No Aproximately how many cigarettes per day: 0 If you are a former smoker, when did you quit?: 01/2014 - Social History Usual Living Arrangement: With Spouse ADL: Independent 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 History of Recent Travel: No Home Medications - Allergies Allergies/Adverse Reactions: Allergies Allergy/AdvReac Type Severity Reaction Status Date / Time morphine Allergy Severe VOMITING,HALLUCINATIONS, Verified 10/26/17 09:57 WAS TOLD TO NEVER TAKE IT AGAIN - Home Medications Home Medications: Ambulatory Orders B-Complex with Vitamin C [B-Complex with C] 1 each PO DAILY 02/01/16 Calcium Carb, Citrate/Vit D3 [Calcium + D3 ER Tablet] 1 each PO DAILY 02/01/16 Cholecalciferol (Vitamin D3) [D3-2000] 2,000 unit PO DAILY 02/01/16 Cyanocobalamin [Vitamin B12 -] 500 mcg PO DAILY 02/01/16 Mirtazapine 30 mg PO HS 02/01/16 Multivitamin [Poly-Vitamin] 1 each PO DAILY 02/01/16 Topiramate 100 mg PO BID 02/01/16 Duloxetine HCl [Cymbalta -] 30 mg PO HS 01/05/17 Potassium Chloride [Klor-Con] 20 meq PO DAILY 01/05/17 Vitamin E 400 unit PO DAILY 01/05/17 Prednisone 10 mg PO DAILY 01/16/17 Acetaminophen with Codeine [Tylenol with Codeine #3 Tablet] 1 each PO BID PRN # 30 tablet MDD 2 01/18/17 Albuterol Sulfate Inhaler - [Ventolin HFA Inhaler -] 1 puff IH QID PRN #0 inhaler 01/18/17 Diazepam [Valium] 5 mg PO DAILY PRN #20 tablet NS MDD 1 01/18/17 Topiramate [Topamax -] 100 mg PO BID tablet 01/18/17 Family Disease History - Family Disease History Family Disease History: Heart Disease: Father ( during CABG age 67), Mother ( [place] age 85), Brother (morbid obesity) Review of Systems - Review of Systems Constitutional: reports: Lethargy. denies: Chills, Fever Eyes: denies: Blurred Vision, Recent Change in Vision HENT: reports: Difficult Swallowing. denies: Throat Pain Neck: denies: Pain on Movement, Tenderness Cardiovascular: denies: Chest Pain, Palpitations Respiratory: denies: Cough, SOB Gastrointestinal: reports: Abdominal Pain, Bloating, Rectal Bleeding. denies: Constipation Genitourinary: denies: Burning, Discharge, Dysuria Breasts: reports: No Symptoms Reported. denies: Pain Musculoskeletal: reports: Back Pain. denies: Muscle Pain, Muscle Weakness Integumentary: denies: Erythema, Lesions, Lump Neurological: denies: Confusion, Seizure, Syncope Endocrine: denies: Unexplained Weight Gain, Unexplained Weight Loss Hematology/Lymphatic: denies: Easily Bruised, Excessive Bleeding Psychiatric: denies: Anxiety, Depression Physical Exam Vital Signs: Vital Signs Temperature 98.5 F 10/27/17 07:30 Pulse Rate 88 10/27/17 09:00 Respiratory Rate 20 10/27/17 09:00 Blood Pressure 136/62 10/27/17 09:00 O2 Sat by Pulse Oximetry (%) 98 10/27/17 09:00 Vital Signs Period Temp Pulse Resp BP Sys/Mckenzie Pulse Ox Last 24 Hr 98.3 F-99 F 78-100 15-21 100-143/40-92 98-100 Intake & Output 10/26/17 10/27/17 10/27/17 23:59 07:59 15:59 Intake Total 630 2235 Balance 630 2235 Weight 183 lb 9.6 oz Intake: IV 180 1096 D5-1/2NS+10 MEQ KCL - 10 150 800 meq In 1,000 ml @ 50 mls/ hr IV ASDIR DMITRIY Rx#: [id number] Protonix drip 30 296 IVPB 100 Packed Cells 350 1139 Other: Voiding Method Bedpan Bowel Movement Yes Yes # Bowel Movements 1 2 Weight Measurement Method Built in [facility] Neurological: Yes: Alert, Oriented Psychiatric: Yes: Alert, Oriented Labs: CBC, BMP 10/27/17 08:10 10/27/17 08:10 INR, PTT INR 1.18 (0.82-1.09) H 10/26/17 10:30 CBC,CMP WBC 9.6 K/mm3 (4.0-10.0) 10/27/17 08:10 RBC 2.99 M/mm3 (3.60-5.2) L D 10/27/17 08:10 Hgb 8.7 GM/dL (10.7-15.3) L D 10/27/17 08:10 Hct 25.2 % (32.4-45.2) L D 10/27/17 08:10 MCV 84.3 fl (80-96) 10/27/17 08:10 MCH 28.9 pg (25.7-33.7) 10/27/17 08:10 MCHC 34.3 g/dl (32.0-36.0) 10/27/17 08:10 RDW 15.0 % (11.6-15.6) 10/27/17 08:10 Plt Count 186 K/MM3 (134-434) 10/27/17 08:10 MPV 8.3 fl (7.5-11.1) 10/27/17 08:10 Neutrophils % 66.9 % (42.8-82.8) 10/26/17 10:24 Lymphocytes % 21.8 % (8-40) 10/26/17 10:24 Monocytes % 9.0 % (3.8-10.2) 10/26/17 10:24 Eosinophils % 1.3 % (0-4.5) D 10/26/17 10:24 Basophils % 1.0 % (0-2.0) 10/26/17 10:24 Sodium 147 mmol/L (136-145) H 10/27/17 08:10 Potassium 3.6 mmol/L (3.5-5.1) 10/27/17 08:10 Chloride 114 mmol/L (98-107) H 10/27/17 08:10 Carbon Dioxide 23 mmol/L (21-32) 10/27/17 08:10 Anion Gap 10 (8-16) 10/27/17 08:10 BUN 15 mg/dL (7-18) 10/27/17 08:10 Creatinine 0.7 mg/dL (0.55-1.02) 10/27/17 08:10 Creat Clearance w eGFR > 60 (>60) 10/27/17 08:10 Random Glucose 97 mg/dL (74-106) 10/27/17 08:10 Calcium 7.9 mg/dL (8.5-10.1) L 10/27/17 08:10 Total Bilirubin 1.6 mg/dL (0.2-1.0) H D 10/27/17 08:10 AST 11 U/L (15-37) L 10/27/17 08:10 ALT 16 U/L (12-78) 10/27/17 08:10 Alkaline Phosphatase 81 U/L (45-117) 10/27/17 08:10 Total Protein 5.1 g/dl (6.4-8.2) L 10/27/17 08:10 Albumin 2.8 g/dl (3.4-5.0) L 10/27/17 08:10 Imaging - Results Chest X-ray: Report Reviewed (no acute findings), Image Reviewed EKG: Report Reviewed, Image Reviewed (sinus tachycardia aand RBBB) Other: Report Reviewed, Image Reviewed (Nuclear med Bleeding scan - positive for left sided colonic bleed) Problem List - Problems (1) Anemia due to blood loss, acute Assessment/Plan: 67 yo female MMP with previous episode of diverticular bleed that required hospiatlization but was treated non operatively, This time her presenting H&H was 5.9/18 now after 4 units RBC its 03/31 still actively bleeding per rectum. EGD ruled out upper GI source. Previous colonoscopy showed Sigmoid colon focused divertiular disease. I plan to attempt to better localized her colon source with a bleeding scan today. And offer her a limited colon ressection as opposed to a subtotal colectomy during this admission. NPO and IVF hydration Bleeding scan - left sided colic bleed Transfuse as indicated by hemodynamics Pulmonary and Cardiolgy evaluations PPI Pain management for alternative to NSAID for chronic LBP Nicolls Bowel prep Sunday 10/29 Plan for OR for Left hemicolectomy versus sigmoid 10/30 Discussed with patient risks, benefits and alternatives of laparoscopic possible open ectomy, including but not limited to bleeding, infection, injury to adjacent structures, leak or injury, intraabdominal abscess, need for further procedures, ; alternatives include antibiotics, delayed or no surgery - risks of this include failure of nonoperative therapy, perforation, sepsis, recurrence, . Patient desires to proceed with operation - will take to OR for above. Informed consent to be obtained this weekend. Code(s): D62 - ACUTE POSTHEMORRHAGIC ANEMIA (2) Diverticulosis Code(s): K57.90 - DVRTCLOS OF INTEST, PART UNSP, W/O PERF OR ABSCESS W/O BLEED (3) History of peptic ulcer Code(s): Z87.11 - PERSONAL HISTORY OF PEPTIC ULCER DISEASE (4) Right bundle branch block (RBBB) Code(s): I45.10 - UNSPECIFIED RIGHT BUNDLE-BRANCH BLOCK (5) Asthma Code(s): J45.909 - UNSPECIFIED ASTHMA, UNCOMPLICATED Qualifiers: Asthma severity: mild Asthma complication type: uncomplicated (6) GERD (gastroesophageal reflux disease) Code(s): K21.9 - GASTRO-ESOPHAGEAL REFLUX DISEASE WITHOUT ESOPHAGITIS Qualifiers: Esophagitis presence: without esophagitis Qualified Code(s): K21.9 - Gastro -esophageal reflux disease without esophagitis (7) Hypertension Code(s): I10 - ESSENTIAL (PRIMARY) HYPERTENSION Qualifiers: Hypertension type: essential hypertension Qualified Code(s): I10 - Essential (primary) hypertension (8) Low back pain Code(s): M54.5 - LOW BACK PAIN Qualifiers: Chronicity: chronic Back pain laterality: right Sciatica presence: without sciatica Qualified Code(s): M54.5 - Low back pain; G89.29 - Other chronic pain; G89.29 - Other chronic pain
--- NOTE | 2017-10-27 11:22 | PN ---
Progress Note (short form) - Note Progress Note: GI Procedure Note: Please see scanned EGD report. No bleeding source found. CTA ordered. Case discussed with Dr Nunez. Problem List - Problems (1) GI bleeding Code(s): K92.2 - GASTROINTESTINAL HEMORRHAGE, UNSPECIFIED Qualifiers: GI bleed type/associated pathology: melena Qualified Code(s): K92.1 - Melena (2) Colon adenoma Code(s): D12.6 - BENIGN NEOPLASM OF COLON, UNSPECIFIED (3) Diverticulosis Code(s): K57.90 - DVRTCLOS OF INTEST, PART UNSP, W/O PERF OR ABSCESS W/O BLEED (4) History of peptic ulcer Code(s): Z87.11 - PERSONAL HISTORY OF PEPTIC ULCER DISEASE (5) Anemia due to blood loss, acute Code(s): D62 - ACUTE POSTHEMORRHAGIC ANEMIA
--- NOTE | 2017-10-27 11:53 | PN ---
Teaching Attending Note Name of Resident: Beto Pacheco ATTENDING PHYSICIAN STATEMENT I saw and evaluated the patient. I reviewed the resident's note and discussed the case with the resident. I agree with the resident's findings and plan as documented. SUBJECTIVE: Patient seen and examined in the ICU. Awake and alert. No CP or SOB. No abdominal pain today. For upper endoscopy evaluation. H&H improved after pRBCs. Intake & Output 10/24/17 10/25/17 10/26/17 10/27/17 23:59 23:59 23:59 23:59 Intake Total 630 2735 Balance 630 2735 Weight 180 lb 183 lb 9.6 oz Last Vital Signs Temp Pulse Resp BP Pulse Ox 98.4 F 92 H 19 132/65 98 10/27/17 10:00 10/27/17 10:00 10/27/17 10:00 10/27/17 10:00 10/27/17 09:00 Active Medications Albuterol Sulfate (Ventolin 0.083% Nebulizer Soln -) 1 amp NEB Q8H PRN PRN Reason: SHORT OF BREATH/WHEEZING Albuterol Sulfate (Ventolin Hfa Inhaler -) 2 puff IH Q6H PRN PRN Reason: SHORT OF BREATH/WHEEZING Duloxetine HCl (Cymbalta -) 60 mg PO DAILY [facility] Potassium Chloride/Dextrose/Sod Cl (D5-1/2ns+10 Meq Kcl -) 10 meq in 1,000 mls @ 50 mls/hr IV ASDIR [facility] Last Admin: 10/26/17 13:05 Dose: 50 mls/hr Mirtazapine (Remeron -) 30 mg PO HS [facility] Last Admin: 10/26/17 21:15 Dose: 30 mg Pantoprazole Sodium (Protonix -) 40 mg PO DAILY [facility] Topiramate (Topamax -) 100 mg PO BID [facility] Last Admin: 10/26/17 21:15 Dose: 100 mg Constitutional: Yes: No Distress, Calm Eyes: Yes: Conjunctiva Clear, EOM Intact HENT: Yes: Atraumatic, Normocephalic Neck: Yes: Supple Cardiovascular: Yes: Regular Rate and Rhythm Respiratory: Yes: Regular. No: Accessory Muscle Use Gastrointestinal: Yes: Normal Bowel Sounds, Soft, Rectal Bleeding. No: Palpable Mass, Pulsatile Mass Renal/: Yes: WNL Musculoskeletal: Yes: WNL Extremities: Yes: WNL Edema: No Peripheral Pulses WNL: Yes Integumentary: Yes: WNL Neurological: Yes: WNL, Alert, Oriented ...Motor Strength: WNL Psychiatric: Yes: WNL, Alert, Oriented Labs: Laboratory Results - last 24 hr 10/26/17 10/26/17 10/27/17 10:30 21:00 08:10 WBC 10.3 H 9.6 RBC 2.31 L 2.99 L D Hgb 6.6 L* D 8.7 L D Hct 19.6 L 25.2 L D MCV 84.9 84.3 MCH 28.7 28.9 MCHC 33.8 34.3 RDW 15.0 15.0 Plt Count 193 D 186 MPV 8.7 8.3 Sodium Potassium Chloride Carbon Dioxide Anion Gap BUN Creatinine Creat Clearance w eGFR Random Glucose Calcium Total Bilirubin AST ALT Alkaline Phosphatase Total Protein Albumin Blood Type A POSITIVE Antibody Screen Negative Crossmatch See Detail 10/27/17 08:10 WBC RBC Hgb Hct MCV MCH MCHC RDW Plt Count MPV Sodium 147 H Potassium 3.6 Chloride 114 H Carbon Dioxide 23 Anion Gap 10 BUN 15 Creatinine 0.7 Creat Clearance w eGFR > 60 Random Glucose 97 Calcium 7.9 L Total Bilirubin 1.6 H D AST 11 L ALT 16 Alkaline Phosphatase 81 Total Protein 5.1 L Albumin 2.8 L Blood Type Antibody Screen Crossmatch Assessment/Plan Acute blood loss anemia due to GI bleeding PLAN: pRBCs transfusion Normal transfusion thresholds For endoscopy evaluation O2 as needed Mechanical VTE prophylaxis IVF NPO PPI drip ICU monitoring Dr Mujica Critical care time spent in reviewing chart, evaluating patient and formulating plan - 36 minutes.
[2017-10-27] MEDS: TOPIRAMATE 100 MG TABLET PO SCH ×2 (13:19→21:17)
--- NOTE | 2017-10-27 13:21 | PN ---
Physical Exam: SUBJECTIVE: Patient seen and examined Per nurse, pt had an episode of melena overnight and 2 episodes this am. Pt denies SOB, chest pain, n/v, and constipation. She endorses inability to void. OBJECTIVE: Vital Signs Period Temp Pulse Resp BP Sys/Mckenzie Pulse Ox Last 24 Hr 98.3 F-99 F 78-100 15-21 100-143/40-83 98-100 GENERAL: elderly female, lying in bed, AAOx3, in NAD HEENT: NC, AT LUNGS: CTAB HEART: Regular rate and rhythm, S1, S2 without murmur, rub or gallop. ABDOMEN: soft, NT, ND EXTREMITIES: 2+ pulses, warm, well-perfused, no edema. NEUROLOGICAL: Cranial nerves II through XII grossly intact. Normal speech, gait not observed. Laboratory Results - last 24 hr 10/26/17 10/26/17 10/27/17 10:30 21:00 08:10 WBC 10.3 H 9.6 RBC 2.31 L 2.99 L D Hgb 6.6 L* D 8.7 L D Hct 19.6 L 25.2 L D MCV 84.9 84.3 MCH 28.7 28.9 MCHC 33.8 34.3 RDW 15.0 15.0 Plt Count 193 D 186 MPV 8.7 8.3 Sodium Potassium Chloride Carbon Dioxide Anion Gap BUN Creatinine Creat Clearance w eGFR Random Glucose Calcium Total Bilirubin AST ALT Alkaline Phosphatase Total Protein Albumin Blood Type A POSITIVE Antibody Screen Negative Crossmatch See Detail 10/27/17 08:10 WBC RBC Hgb Hct MCV MCH MCHC RDW Plt Count MPV Sodium 147 H Potassium 3.6 Chloride 114 H Carbon Dioxide 23 Anion Gap 10 BUN 15 Creatinine 0.7 Creat Clearance w eGFR > 60 Random Glucose 97 Calcium 7.9 L Total Bilirubin 1.6 H D AST 11 L ALT 16 Alkaline Phosphatase 81 Total Protein 5.1 L Albumin 2.8 L Blood Type Antibody Screen Crossmatch Active Medications Generic Name Dose Route Start Last Admin Trade Name Freq PRN Reason Stop Dose Admin Albuterol Sulfate 1 amp 10/26/17 12:32 Ventolin 0.083% Nebulizer Soln - NEB Q8H PRN SHORT OF BREATH/WHEEZING Albuterol Sulfate 2 puff 10/26/17 12:33 Ventolin Hfa Inhaler - IH Q6H PRN SHORT OF BREATH/WHEEZING Duloxetine HCl 60 mg 10/27/17 10:00 Cymbalta - PO DAILY DMITRIY Potassium Chloride/Dextrose/Sod Cl 10 meq in 1,000 mls @ 50 mls/hr 10/26/17 12 :45 10/26/17 13:05 D5-1/2ns+10 Meq Kcl - IV 50 mls/hr ASDIR DMITRIY Administration Mirtazapine 30 mg 10/26/17 22:00 10/26/17 21:15 Remeron - PO 30 mg HS DMITRIY Administration Pantoprazole Sodium 40 mg 10/28/17 10:00 Protonix - PO DAILY DMITRIY Topiramate 100 mg 10/26/17 22:00 10/26/17 21:15 Topamax - PO 100 mg BID DMITRIY Administration ASSESSMENT/PLAN: 67F w/ hx of diverticulitis, GERD, Duodenal AVM's, Asthma, arthritis, Anxiety, and depression who presented with BRBPR, found to have a GI bleed with significant anemia. Gastrointestinal #GI Bleed -s/p upper endoscopy which did not reveal source of bleeding. As such, bleeding is most likely 2/2 diverticulosis in sigmoid region as previously seen on colonoscopy. Per GI and surgery, will obtain bleeding scan which will determine extent of surgery required to correct it. -Continue IV fluids for resuscitation, monitor UOP -continue protonix drip -NPO -transfuse as necessary Hematology #Acute Blood Loss Anemia -2/2 GI bleed -Hemoglobin of 8.7 this am -trend Hgb Pulmonology #Asthma -Albuterol PRN -Continue 02 monitoring Neurology #History of Brain Tumor -Continue topamax 100mg BID Psych #Anxiety/Depression -Continue home Remeron -Continue home Cymbalta FEN/ppx -IV D5-1/2NS -Electrolytes wnl -NPO -No DVT prophylaxis due to GI bleed -Protonix drip for GI Disposition -Full code Case discussed with attending, Dr. Mujica. -Beto Pacheco MD PGY1 ICU Team Visit type - Emergency Visit Emergency Visit: Yes ED Registration Date: 10/26/17 Care time: The patient presented to the Emergency Department on the above date and was hospitalized for further evaluation of their emergent condition. - New Patient This patient is new to me today: Yes Date on this admission: 03/23/18 - Critical Care Critical Care patient: Yes Total Critical Care Time (in minutes): 37 Critical Care Statement: The care of this patient involved high complexity decision making to prevent further life threatening deterioration of the patient 's condition and/or to evaluate & treat vital organ system(s) failure or risk of failure.
[2017-10-27 14:52] LABS: BASO % 0.9 % (0-2.0); EOS % 2.4 % (0-4.5); HEMATOCRIT 22.4 % (32.4-45.2); HEMOGLOBIN 7.9 GM/dL (10.7-15.3); LYMPH % 19.2 % (8-40); MCH 29.5 pg (25.7-33.7); MCHC 35.3 g/dl (32.0-36.0); MEAN CELL VOLUME 83.6 fl (80-96); MEAN PLT VOLUME 8.1 fl (7.5-11.1); MONO % 9.9 % (3.8-10.2); NEUT % 67.6 % (42.8-82.8); PLATELET COUNT 188 K/MM3 (134-434); RBC 2.68 M/mm3 (3.60-5.2); RDW 15.1 % (11.6-15.6); WHITE BLOOD COUNT 10.1 K/mm3 (4.0-10.0)
[2017-10-27] MEDS ORDERED: DULoxetine HCL 30 MG CAPSULE.DR (FP) PO ONE (16:58)
--- NOTE | 2017-10-27 17:28 | PN ---
Progress Note (short form) - Note Progress Note: ################## medical ICU note Current Medications Albuterol Sulfate (Ventolin 0.083% Nebulizer Soln -) 1 amp NEB Q8H PRN PRN Reason: SHORT OF BREATH/WHEEZING Albuterol Sulfate (Ventolin Hfa Inhaler -) 2 puff IH Q6H PRN PRN Reason: SHORT OF BREATH/WHEEZING Duloxetine HCl (Cymbalta -) 60 mg PO HS [facility] Potassium Chloride/Dextrose/Sod Cl (D5-1/2ns+10 Meq Kcl -) 10 meq in 1,000 mls @ 50 mls/hr IV ASDIR [facility] Last Admin: 10/26/17 13:05 Dose: 50 mls/hr Mirtazapine (Remeron -) 30 mg PO HS [facility] Last Admin: 10/26/17 21:15 Dose: 30 mg Montelukast Sodium (Singulair -) 10 mg PO [facility] Pantoprazole Sodium (Protonix -) 40 mg PO DAILY [facility] Topiramate (Topamax -) 100 mg PO BID [facility] Last Admin: 10/27/17 13:19 Dose: Not Given Abnormal Lab Results 10/26/17 10/26/17 10/27/17 10:30 21:00 08:10 WBC 10.3 H RBC 2.31 L 2.99 L D Hgb 6.6 L* D 8.7 L D Hct 19.6 L 25.2 L D Sodium Chloride Calcium Total Bilirubin AST Total Protein Albumin Crossmatch See Detail 10/27/17 10/27/17 08:10 14:15 WBC 10.1 H RBC 2.68 L Hgb 7.9 L Hct 22.4 L Sodium 147 H Chloride 114 H Calcium 7.9 L Total Bilirubin 1.6 H D AST 11 L Total Protein 5.1 L Albumin 2.8 L Crossmatch Vital Signs Temperature 98.7 F 10/27/17 14:00 Pulse Rate 100 H 10/27/17 16:00 Respiratory Rate 17 10/27/17 16:00 Blood Pressure 139/53 10/27/17 16:00 O2 Sat by Pulse Oximetry (%) 98 10/27/17 09:00 CC: bloody stools ````````````````` skin--pallor heart--RR lungs--grossly clear & unlabored abd--soft, NT neuro--alert; fully lucid & coherent; no gross deficits `````````````````````````````````` Summ > Anemia--2nd GI bleed; EGD did not show gastric/pyloric lesions; and thus likely source is a divertic bleed. PLAN: serial H/h; transfuse as needed > GI Bleed--likely lower ? divertic as per bleeding scan; will need colonoscopy and then will likely undergo partial colectomy of affected segment causing the bleed. > asthma--stable so far; may need pre-op Solumedrol > Anxiety--with insomnia; cont with current psychotropes ~~~~~~~~~~~~~~~~~~~~~~~~~~~ Dr Cortes Problem List - Problems (1) GI bleeding Code(s): K92.2 - GASTROINTESTINAL HEMORRHAGE, UNSPECIFIED Qualifiers: GI bleed type/associated pathology: melena Qualified Code(s): K92.1 - Melena (2) Anemia due to blood loss, acute Code(s): D62 - ACUTE POSTHEMORRHAGIC ANEMIA (3) Asthma Code(s): J45.909 - UNSPECIFIED ASTHMA, UNCOMPLICATED Qualifiers: Asthma severity: mild Asthma complication type: uncomplicated (4) Low back pain Code(s): M54.5 - LOW BACK PAIN Qualifiers: Chronicity: chronic Back pain laterality: right Sciatica presence: without sciatica Qualified Code(s): M54.5 - Low back pain; G89.29 - Other chronic pain; G89.29 - Other chronic pain (5) Hypertension Code(s): I10 - ESSENTIAL (PRIMARY) HYPERTENSION Qualifiers: Hypertension type: essential hypertension Qualified Code(s): I10 - Essential (primary) hypertension (6) Right bundle branch block (RBBB) Code(s): I45.10 - UNSPECIFIED RIGHT BUNDLE-BRANCH BLOCK (7) Chronic headaches Code(s): R51 - HEADACHE Qualifiers: Headache type: unspecified Intractability: not intractable Qualified Code (s): R51 - Headache (8) Osteoporosis Code(s): M81.0 - AGE-RELATED OSTEOPOROSIS W/O CURRENT PATHOLOGICAL FRACTURE Qualifiers: Osteoporosis type: unspecified (9) Anxiety Code(s): F41.9 - ANXIETY DISORDER, UNSPECIFIED
[2017-10-27] MEDS ORDERED: MIRTAZAPINE 15 MG TABLET (FP) ONE (21:07)
[2017-10-27] MEDS: MIRTAZAPINE 30 MG TABLET (FP) PO SCH (21:17)
[2017-10-27] MEDS: MONTELUKAST NA 10 MG TABLET PO SCH (21:17)
[2017-10-27 21:37] LABS: HEMATOCRIT 21.9 % (32.4-45.2); HEMOGLOBIN 7.6 GM/dL (10.7-15.3); MCHC 34.6 g/dl (32.0-36.0); MEAN CELL VOLUME 83.8 fl (80-96); MEAN PLT VOLUME 8.5 fl (7.5-11.1); PLATELET COUNT 207 K/MM3 (134-434); RBC 2.62 M/mm3 (3.60-5.2); RDW 15.1 % (11.6-15.6); WHITE BLOOD COUNT 10.4 K/mm3 (4.0-10.0)
[2017-10-27] MEDS ORDERED: DULoxetine HCL 30 MG CAPSULE.DR (FP) PO SCH (22:00)
[2017-10-27] MEDS ORDERED: CALCIUM GLUCONATE 10% - 1,000 MG/10 ML VIAL IVPB ONE (22:06)
--- NOTE | 2017-10-27 22:59 | PN ---
Progress Note (short form) - Note Progress Note: H&H continues to drop, receiving transfusions. will transition to clear liquid diet. Ordered modified honeycutt prep to start 10/28 (neomycin 3doses, flagyl 3 doses, golytely 4L) in anticipation of left hemicolectomy possibly one day early 10/29. will discuss changes to the plan with family monday morning. Problem List - Problems (1) Anemia due to blood loss, acute Code(s): D62 - ACUTE POSTHEMORRHAGIC ANEMIA (2) Diverticulosis Code(s): K57.90 - DVRTCLOS OF INTEST, PART UNSP, W/O PERF OR ABSCESS W/O BLEED (3) History of peptic ulcer Code(s): Z87.11 - PERSONAL HISTORY OF PEPTIC ULCER DISEASE (4) Right bundle branch block (RBBB) Code(s): I45.10 - UNSPECIFIED RIGHT BUNDLE-BRANCH BLOCK (5) Asthma Code(s): J45.909 - UNSPECIFIED ASTHMA, UNCOMPLICATED Qualifiers: Asthma severity: mild Asthma complication type: uncomplicated (6) GERD (gastroesophageal reflux disease) Code(s): K21.9 - GASTRO-ESOPHAGEAL REFLUX DISEASE WITHOUT ESOPHAGITIS Qualifiers: Esophagitis presence: without esophagitis Qualified Code(s): K21.9 - Gastro -esophageal reflux disease without esophagitis (7) Hypertension Code(s): I10 - ESSENTIAL (PRIMARY) HYPERTENSION Qualifiers: Hypertension type: essential hypertension Qualified Code(s): I10 - Essential (primary) hypertension (8) Low back pain Code(s): M54.5 - LOW BACK PAIN Qualifiers: Chronicity: chronic Back pain laterality: right Sciatica presence: without sciatica Qualified Code(s): M54.5 - Low back pain; G89.29 - Other chronic pain; G89.29 - Other chronic pain
--- NOTE | 2017-10-28 02:21 | PN ---
Progress Note, Physician Chief Complaint: LGIB History of Present Illness: 67 yo female HTN, asthma, chronic Headaches, diverticular disease, OA of spine, GERD, "bleeding ulcer" at age of 8, prior admission in February 2016 with diverticular bleed who presents with dark blood per rectum since Monday. She continues to have bloody BM requiring transfusion. - Current Medication List Current Medications: Active Medications Albuterol Sulfate (Ventolin 0.083% Nebulizer Soln -) 1 amp NEB Q8H PRN PRN Reason: SHORT OF BREATH/WHEEZING Albuterol Sulfate (Ventolin Hfa Inhaler -) 2 puff IH Q6H PRN PRN Reason: SHORT OF BREATH/WHEEZING Duloxetine HCl (Cymbalta -) 60 mg PO [facility] Last Admin: 10/27/17 21:17 Dose: 60 mg Potassium Chloride/Dextrose/Sod Cl (D5-1/2ns+10 Meq Kcl -) 10 meq in 1,000 mls @ 50 mls/hr IV ASDIR [facility] Last Admin: 10/26/17 13:05 Dose: 50 mls/hr Metronidazole (Flagyl -) 1,000 mg PO TID [facility] Stop: 10/29/17 05:59 Mirtazapine (Remeron -) 30 mg PO [facility] Last Admin: 10/27/17 21:17 Dose: 30 mg Montelukast Sodium (Singulair -) 10 mg PO [facility] Last Admin: 10/27/17 21:17 Dose: 10 mg Neomycin Sulfate (Mycifradin -) 1,000 mg PO 0500,0600,1100 [facility] Stop: 10/28/17 11:01 Pantoprazole Sodium (Protonix -) 40 mg PO DAILY [facility] Polyethylene Glycol/Electrolytes (Golytely Solution -) 4,000 ml PO ONCE ONE Stop: 10/28/17 11:01 Topiramate (Topamax -) 100 mg PO BID [facility] Last Admin: 10/27/17 21:17 Dose: 100 mg - Objective Vital Signs: Vital Signs Temperature 98.4 F 10/27/17 22:00 Pulse Rate 99 H 10/28/17 00:00 Respiratory Rate 18 10/28/17 00:00 Blood Pressure 108/56 10/28/17 00:00 O2 Sat by Pulse Oximetry (%) 99 10/27/17 20:59 Constitutional: Yes: No Distress, Calm, Obese Eyes: Yes: Conjunctiva Clear, EOM Intact HENT: Yes: Atraumatic, Normocephalic Neck: Yes: Supple, Trachea Midline Cardiovascular: Yes: Regular Rate and Rhythm, Murmur, S1, S2 Respiratory: Yes: Regular, CTA Bilaterally Gastrointestinal: Yes: Normal Bowel Sounds, Soft, Abdomen, Obese, Distention. No: Tenderness, Tenderness, Epigastrium Labs: CBC, BMP 10/27/17 21:15 10/27/17 08:10 INR, PTT INR 1.18 (0.82-1.09) H 10/26/17 10:30 Problem List - Problems (1) Anemia due to blood loss, acute Assessment/Plan: 67 yo female MMP with previous episode of diverticular bleed that required hospiatlization but was treated non operatively, This time her presenting H&H was 5.9/ now after 6 units RBC its 7.6/ still actively bleeding per rectum. EGD ruled out upper GI source. Previous colonoscopy showed Sigmoid colon focused divertiular disease. clear liquid diet Transfuse as indicated by hemodynamics Pulmonary and Cardiology preop evaluations Nicolls Bowel prep Saturday 10/28 Plan for OR for Left hemicolectomy versus sigmoid 10/29? Discussed with patient risks, benefits and alternatives of laparoscopic possible open ectomy, including but not limited to bleeding, infection, injury to adjacent structures, leak or injury, intraabdominal abscess, need for further procedures, ; alternatives include antibiotics, delayed or no surgery - risks of this include failure of nonoperative therapy, perforation, sepsis, recurrence, . Patient desires to proceed with operation - will take to OR for above. Informed consent ??. This patient is critically ill. Time spent reviewing chart, examining patient, talking with providers and/or family and documentation is 35 minutes Code(s): D62 - ACUTE POSTHEMORRHAGIC ANEMIA (2) Diverticulosis Code(s): K57.90 - DVRTCLOS OF INTEST, PART UNSP, W/O PERF OR ABSCESS W/O BLEED (3) History of peptic ulcer Code(s): Z87.11 - PERSONAL HISTORY OF PEPTIC ULCER DISEASE (4) Right bundle branch block (RBBB) Code(s): I45.10 - UNSPECIFIED RIGHT BUNDLE-BRANCH BLOCK (5) Asthma Code(s): J45.909 - UNSPECIFIED ASTHMA, UNCOMPLICATED Qualifiers: Asthma severity: mild Asthma complication type: uncomplicated (6) GERD (gastroesophageal reflux disease) Code(s): K21.9 - GASTRO-ESOPHAGEAL REFLUX DISEASE WITHOUT ESOPHAGITIS Qualifiers: Esophagitis presence: without esophagitis Qualified Code(s): K21.9 - Gastro -esophageal reflux disease without esophagitis (7) Hypertension Code(s): I10 - ESSENTIAL (PRIMARY) HYPERTENSION Qualifiers: Hypertension type: essential hypertension Qualified Code(s): I10 - Essential (primary) hypertension (8) Low back pain Code(s): M54.5 - LOW BACK PAIN Qualifiers: Chronicity: chronic Back pain laterality: right Sciatica presence: without sciatica Qualified Code(s): M54.5 - Low back pain; G89.29 - Other chronic pain; G89.29 - Other chronic pain
[2017-10-28] MEDS: NEOMYCIN SO4 500 MG TABLET PO SCH ×3 (05:00→11:12)
[2017-10-28] MEDS: metroNIDAZOLE 250 MG TABLET PO SCH ×3 (05:54→22:32)
[2017-10-28 08:06] LABS: BASO % 0.9 % (0-2.0); EOS % 2.1 % (0-4.5); HEMOGLOBIN 9.1 GM/dL (10.7-15.3); LYMPH % 16.9 % (8-40); MCH 29.9 pg (25.7-33.7); MCHC 35.1 g/dl (32.0-36.0); MEAN CELL VOLUME 85.2 fl (80-96); MEAN PLT VOLUME 8.3 fl (7.5-11.1); MONO % 9.6 % (3.8-10.2); NEUT % 70.5 % (42.8-82.8); PLATELET COUNT 181 K/MM3 (134-434); RBC 3.06 M/mm3 (3.60-5.2); RDW 14.7 % (11.6-15.6); WHITE BLOOD COUNT 9.8 K/mm3 (4.0-10.0)
[2017-10-28 08:22] LABS: INR 1.22 (0.82-1.09); PROTHROMBIN TIME (PATIENT) 13.8 SEC (9.98-11.88)
[2017-10-28 08:47] LABS: CHLORIDE 113 mmol/L (98-107); POTASSIUM 3.7 mmol/L (3.5-5.1); SODIUM 147 mmol/L (136-145)
[2017-10-28 08:55] LABS: ALBUMIN 2.7 g/dl (3.4-5.0); ALK PHOS 79 U/L (45-117); ANION GAP 10 (8-16); BILIRUBIN,TOTAL 2.1 mg/dL (0.2-1.0); BLOOD UREA NITROGEN 13 mg/dL (7-18); CALCIUM 8.2 mg/dL (8.5-10.1); CO2 24 mmol/L (21-32); CREATININE 0.6 mg/dL (0.55-1.02); GLUCOSE,RANDOM 97 mg/dL (74-106); MAGNESIUM 2.1 mg/dL (1.8-2.4); PHOSPHOROUS 3.8 mg/dL (2.5-4.9); SGOT/AST 24 U/L (15-37); SGPT/ALT 33 U/L (12-78); TOT PROT 4.8 g/dl (6.4-8.2)
[2017-10-28] MEDS: TOPIRAMATE 100 MG TABLET PO SCH ×2 (09:47→22:32)
[2017-10-28] MEDS: PANTOPRAZOLE 40 MG TABLET (FP) PO SCH (09:47)
[2017-10-28] MEDS: D5-1/2NS+10 MEQ KCL - 10 MEQ/1,000 ML INFUS.BAG IV SCH ×2 (09:49→13:27)
--- NOTE | 2017-10-28 10:24 | PN ---
Progress Note (short form) - Note Progress Note: PULM/CCM SUBJECTIVE: Patient seen and examined in the ICU. 24Hr: still with bleeding requiring transfusion -plan for OR mon or monday depending on bleeding episodes -no other acute events Constitutional: awake, alert, sitting up in bed, very pleasant Eyes: Yes: Conjunctiva Clear, EOM Intact HENT: Yes: Atraumatic, Normocephalic Neck: Yes: Supple Cardiovascular: Yes: Regular Rate and Rhythm, no m/r/g appreciated Respiratory: Yes: Regular. No: Accessory Muscle Use Gastrointestinal: + BS, soft, NT, ND Renal/: Yes: WNL Musculoskeletal: Yes: WNL Extremities: Yes: WNL Edema: No Peripheral Pulses WNL: Yes Integumentary: Yes: WNL Neurological: Yes: WNL, Alert, Oriented ...Motor Strength: WNL Psychiatric: Yes: WNL, Alert, Oriented Current Medications Albuterol Sulfate (Ventolin 0.083% Nebulizer Soln -) 1 amp NEB Q8H PRN PRN Reason: SHORT OF BREATH/WHEEZING Albuterol Sulfate (Ventolin Hfa Inhaler -) 2 puff IH Q6H PRN PRN Reason: SHORT OF BREATH/WHEEZING Duloxetine HCl (Cymbalta -) 60 mg PO HS [facility] Last Admin: 10/27/17 21:17 Dose: 60 mg Potassium Chloride/Dextrose/Sod Cl (D5-1/2ns+10 Meq Kcl -) 10 meq in 1,000 mls @ 50 mls/hr IV ASDIR [facility] Last Admin: 10/28/17 09:49 Dose: 50 mls/hr Metronidazole (Flagyl -) 1,000 mg PO TID [facility] Stop: 10/29/17 05:59 Last Admin: 10/28/17 05:54 Dose: 1,000 mg Mirtazapine (Remeron -) 30 mg PO HS [facility] Last Admin: 10/27/17 21:17 Dose: 30 mg Montelukast Sodium (Singulair -) 10 mg PO HS [facility] Last Admin: 10/27/17 21:17 Dose: 10 mg Neomycin Sulfate (Mycifradin -) 1,000 mg PO 0500,0600,1100 [facility] Stop: 10/28/17 11:01 Last Admin: 10/28/17 06:00 Dose: 1,000 mg Pantoprazole Sodium (Protonix -) 40 mg PO DAILY [facility] Last Admin: 10/28/17 09:47 Dose: 40 mg Polyethylene Glycol/Electrolytes (Golytely Solution -) 4,000 ml PO ONCE ONE Stop: 10/28/17 11:01 Topiramate (Topamax -) 100 mg PO BID [facility] Last Admin: 10/28/17 09:47 Dose: 100 mg Labs: CBCD WBC 9.8 K/mm3 (4.0-10.0) 10/28/17 07:20 RBC 3.06 M/mm3 (3.60-5.2) L 10/28/17 07:20 Hgb 9.1 GM/dL (10.7-15.3) L D 10/28/17 07:20 Hct 26.0 % (32.4-45.2) L D 10/28/17 07:20 MCV 85.2 fl (80-96) 10/28/17 07:20 MCHC 35.1 g/dl (32.0-36.0) 10/28/17 07:20 RDW 14.7 % (11.6-15.6) 10/28/17 07:20 Plt Count 181 K/MM3 (134-434) 10/28/17 07:20 MPV 8.3 fl (7.5-11.1) 10/28/17 07:20 CMP Sodium 147 mmol/L (136-145) H 10/28/17 07:20 Potassium 3.7 mmol/L (3.5-5.1) 10/28/17 07:20 Chloride 113 mmol/L (98-107) H 10/28/17 07:20 Carbon Dioxide 24 mmol/L (21-32) 10/28/17 07:20 Anion Gap 10 (8-16) 10/28/17 07:20 BUN 13 mg/dL (7-18) 10/28/17 07:20 Creatinine 0.6 mg/dL (0.55-1.02) 10/28/17 07:20 Creat Clearance w eGFR > 60 (>60) 10/28/17 07:20 Calcium 8.2 mg/dL (8.5-10.1) L 10/28/17 07:20 Total Bilirubin 2.1 mg/dL (0.2-1.0) H D 10/28/17 07:20 AST 24 U/L (15-37) 10/28/17 07:20 ALT 33 U/L (12-78) 10/28/17 07:20 Alkaline Phosphatase 79 U/L (45-117) 10/28/17 07:20 Total Protein 4.8 g/dl (6.4-8.2) L 10/28/17 07:20 Albumin 2.7 g/dl (3.4-5.0) L 10/28/17 07:20 Assessment/Plan Acute blood loss anemia due to GI bleeding/ diverticuli PLAN: Normal transfusion thresholds , repeat cbc today if further bleeding For possible OR 10/[address] Nunez. O2 as needed Mechanical VTE prophylaxis , OOB IVF NPO PPI daily ICU monitoring until OR Jaylen Maldonado ACNP [phone] CCT
--- NOTE | 2017-10-28 10:58 | CONSULT ---
Consult Consult Specialty:: Cardiology Referred by:: Surgery Reason for Consultation:: Pre-operative evaluation - History of Present Illness Chief Complaint: GI Bleed History of Present Illness: 67 yo female Patient known to Dr. Vital (Cardiology) andrew seen in 12/2016 for preoperative evaluation prior to cervical spine surgery Has no known CV disease No known h/o HTN, HPL, DM prior NH or CVA Did have prior brain surgery at age 13 for brain tumor Is a prior cigarette smoker (quit 3 years ago (up to 2-3 PPD for 50 years) She denies any cardiovascular complaints, no chest pain/pressure/tightness or exertional dyspnea Now presents with Hgb 6 in the setting of GI Bleed/Dark blood ND with NSAID use and known diverticular disease Preparing to go to OR tomorrow for hemicolectomy Had a full CV evaluation in 12/2016 in preparation for laminectomy including an echocardiogram and nuclear stress tests both which were unremarkable. 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) Cardio/Vascular: Yes: HTN Pulmonary: Yes: Asthma Gastrointestinal: Yes: Diverticulosis, GERD, Other (rectal adenoma removed 01/20 , duodenal AVMs) Renal/: Yes: Renal Calculi ...: No Psych: Yes: Anxiety, Depression Musculoskeletal: Yes: Chronic low back pain, Osteoarthritis, Other ( osteoporosis osteonecrosis of the Lt humerous multiple tendonitides) - Past Surgical History Past Surgical History: Yes: Cataract Removal, Colonoscopy, Craniotomy (for "benign tumor" age 13 which has recurred), Upper Endoscopy Additional Surgical History: Left ovarian cystectomy - Alcohol/Substance Use Hx Alcohol Use: Yes (WINE WITH DINNER) History of Substance Use: reports: None - Smoking History Smoking history: Former smoker Have you smoked in the past 12 months: No Aproximately how many cigarettes per day: 0 If you are a former smoker, when did you quit?: 01/2014 - Social History Usual Living Arrangement: With Spouse ADL: Independent 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 History of Recent Travel: No Home Medications - Allergies Allergies/Adverse Reactions: Allergies Allergy/AdvReac Type Severity Reaction Status Date / Time morphine Allergy Severe VOMITING,HALLUCINATIONS, Verified 10/26/17 09:57 WAS TOLD TO NEVER TAKE IT AGAIN - Home Medications Home Medications: Ambulatory Orders B-Complex with Vitamin C [B-Complex with C] 1 each PO DAILY 02/01/16 Calcium Carb, Citrate/Vit D3 [Calcium + D3 ER Tablet] 1 each PO DAILY 02/01/16 Cholecalciferol (Vitamin D3) [D3-2000] 2,000 unit PO DAILY 02/01/16 Cyanocobalamin [Vitamin B12 -] 500 mcg PO DAILY 02/01/16 Mirtazapine 30 mg PO HS 02/01/16 Multivitamin [Poly-Vitamin] 1 each PO DAILY 02/01/16 Topiramate 100 mg PO BID 02/01/16 Duloxetine HCl [Cymbalta -] 30 mg PO HS 01/05/17 Potassium Chloride [Klor-Con] 20 meq PO DAILY 01/05/17 Vitamin E 400 unit PO DAILY 01/05/17 Prednisone 10 mg PO DAILY 01/16/17 Acetaminophen with Codeine [Tylenol with Codeine #3 Tablet] 1 each PO BID PRN # 30 tablet MDD 2 01/18/17 Albuterol Sulfate Inhaler - [Ventolin HFA Inhaler -] 1 puff IH QID PRN #0 inhaler 01/18/17 Diazepam [Valium] 5 mg PO DAILY PRN #20 tablet NS MDD 1 01/18/17 Topiramate [Topamax -] 100 mg PO BID tablet 01/18/17 Family Disease History - Family Disease History Family Disease History: Heart Disease: Father ( during CABG age 67), Mother ( [place] age 85), Brother (morbid obesity) Review of Systems - Review of Systems Constitutional: reports: No Symptoms Eyes: reports: No Symptoms HENT: reports: No Symptoms Neck: reports: No Symptoms Cardiovascular: reports: No Symptoms Respiratory: reports: No Symptoms Gastrointestinal: reports: Rectal Bleeding Genitourinary: reports: No Symptoms Integumentary: reports: No Symptoms Neurological: reports: No Symptoms Hematology/Lymphatic: reports: No Symptoms Psychiatric: reports: No Symptoms Physical Exam Vital Signs: Vital Signs Temperature 98.5 F 10/28/17 10:00 Pulse Rate 93 H 10/28/17 10:00 Respiratory Rate 16 10/28/17 10:00 Blood Pressure 132/54 10/28/17 10:00 O2 Sat by Pulse Oximetry (%) 98 10/28/17 09:00 Constitutional: Yes: Well Nourished, No Distress Eyes: Yes: WNL HENT: Yes: WNL Neck: Yes: WNL Cardiovascular: Yes: Regular Rate and Rhythm, Murmur (Soft systolic murmur) Respiratory: Yes: CTA Bilaterally Gastrointestinal: Yes: Normal Bowel Sounds Musculoskeletal: Yes: WNL Extremities: Yes: WNL Edema: No Labs: CBC, BMP 10/28/17 07:20 10/28/17 07:20 Imaging - Results X-ray: Report Reviewed (CXR: No acute pulmonary issues) EKG: Image Reviewed (Done at 10/26/2017 at 11:04 ST at 101/min with LVH and RBBB (This is Essentially unchanged compared to her prior ECG done on 01/2016)) Other: Report Reviewed (Echo (12/29/2016) Normal biventricular size and function with no significant valvular abnormality. Stress MPI (12/29/2016) Pharmacological stress, Normal MPI, no ischemia, LVEF 60%) Assessment/Plan 67 yo female (+) tobacco history and strong family h/o ASCVD Now with GI Bleed requiring transfusion Planning for left hemicolectomy 1) Pre-op CV evaluation -Patient is low risk for intermediate risk necessary surgical procedure -She underwent a full CV evaluation in 12/2016 which were unremarkable including a normal stress MPI -No interval change in symptoms or change in ECG, No CHF, angina or significant valvular disease She is stable and optimized from a CV perspective to proceed with necessary GI surgery.
[2017-10-28] MEDS ORDERED: PEG 3350/NA SULF BICARB CL/KCL 4000 ML SOLN.RECON PO ONE (11:00)
--- NOTE | 2017-10-28 12:20 | PN ---
GI Progress Note Subjective: GI NOte: Bleeding appears to be subsiding but has now required 6 units of blood. Discussed the situation with Sylvie and her . Agree with need to proceed with surgery. Bowel prep in progress. I also discussed the case with Dr. Harsh Maria who is a family member. - Objective Vital Signs: Vital Signs Temperature 98.5 F 10/28/17 10:00 Pulse Rate 93 H 10/28/17 10:00 Respiratory Rate 16 10/28/17 10:00 Blood Pressure 132/54 10/28/17 10:00 O2 Sat by Pulse Oximetry (%) 98 10/28/17 09:00 Laboratory Tests 10/26/17 10/27/17 10/27/17 10:24 08:10 21:15 Hgb 5.9 L* D 8.7 L D 7.6 L 10/28/17 07:20 Hgb 9.1 L D Constitutional: Calm, Other (pale) ...Auscultate: Yes: Normoactive Bowel Sounds ...Palpate: Yes: Soft, Other (nontender) Labs: CBC, BMP 10/28/17 07:20 10/28/17 07:20 INR, PTT INR 1.22 (0.82-1.09) H 10/28/17 07:20 Problem List - Problems (1) GI bleeding Assessment/Plan: I suspect that Sylvie is bleeding from a diverticular hemorrhage which the bleeding scan supports as left sided. This is statistically the most likely side given the previous colonoscopic findings as well. Agree with proceeding with surgery. May have more bleeding related to the prep and if over 8 units are given she will need FFP. I discussed the case with Dr Nunez earlier. Code(s): K92.2 - GASTROINTESTINAL HEMORRHAGE, UNSPECIFIED Qualifiers: GI bleed type/associated pathology: melena Qualified Code(s): K92.1 - Melena (2) Colon adenoma Code(s): D12.6 - BENIGN NEOPLASM OF COLON, UNSPECIFIED (3) Diverticulosis Code(s): K57.90 - DVRTCLOS OF INTEST, PART UNSP, W/O PERF OR ABSCESS W/O BLEED (4) History of peptic ulcer Code(s): Z87.11 - PERSONAL HISTORY OF PEPTIC ULCER DISEASE (5) Anemia due to blood loss, acute Code(s): D62 - ACUTE POSTHEMORRHAGIC ANEMIA
--- NOTE | 2017-10-28 17:37 | PN ---
Progress Note (short form) - Note Progress Note: @@@@@@@@@@@@@@@@ medical -ICU Current Medications Albuterol Sulfate (Ventolin 0.083% Nebulizer Soln -) 1 amp NEB Q8H PRN PRN Reason: SHORT OF BREATH/WHEEZING Albuterol Sulfate (Ventolin Hfa Inhaler -) 2 puff IH Q6H PRN PRN Reason: SHORT OF BREATH/WHEEZING Duloxetine HCl (Cymbalta -) 60 mg PO HS [facility] Last Admin: 10/27/17 21:17 Dose: 60 mg Potassium Chloride/Dextrose/Sod Cl (D5-1/2ns+10 Meq Kcl -) 10 meq in 1,000 mls @ 50 mls/hr IV ASDIR [facility] Last Admin: 10/28/17 13:27 Dose: 50 mls/hr Methylprednisolone Sodium Succinate (Solu-Medrol -) 20 mg IVPB ONCE ONE Stop: 10/29/17 06:01 Metronidazole (Flagyl -) 1,000 mg PO TID [facility] Stop: 10/29/17 05:59 Last Admin: 10/28/17 13:27 Dose: 1,000 mg Mirtazapine (Remeron -) 30 mg PO HS [facility] Last Admin: 10/27/17 21:17 Dose: 30 mg Montelukast Sodium (Singulair -) 10 mg PO HS [facility] Last Admin: 10/27/17 21:17 Dose: 10 mg Pantoprazole Sodium (Protonix -) 40 mg PO DAILY [facility] Last Admin: 10/28/17 09:47 Dose: 40 mg Topiramate (Topamax -) 100 mg PO BID [facility] Last Admin: 10/28/17 09:47 Dose: 100 mg Laboratory Results - last 24 hr 10/26/17 10/27/17 10/28/17 10:30 21:15 07:20 WBC 10.4 H 9.8 RBC 2.62 L 3.06 L Hgb 7.6 L 9.1 L D Hct 21.9 L 26.0 L D MCV 83.8 85.2 MCH 29.0 29.9 MCHC 34.6 35.1 RDW 15.1 14.7 Plt Count 207 181 MPV 8.5 8.3 Neutrophils % 70.5 Lymphocytes % 16.9 Monocytes % 9.6 Eosinophils % 2.1 Basophils % 0.9 PT with INR INR Sodium Potassium Chloride Carbon Dioxide Anion Gap BUN Creatinine Creat Clearance w eGFR Random Glucose Calcium Phosphorus Magnesium Total Bilirubin AST ALT Alkaline Phosphatase Creatine Kinase Total Protein Albumin Blood Type A POSITIVE Antibody Screen Negative Crossmatch See Detail 10/28/17 10/28/17 07:20 07:20 WBC RBC Hgb Hct MCV MCH MCHC RDW Plt Count MPV Neutrophils % Lymphocytes % Monocytes % Eosinophils % Basophils % PT with INR 13.80 H INR 1.22 H Sodium 147 H Potassium 3.7 Chloride 113 H Carbon Dioxide 24 Anion Gap 10 BUN 13 Creatinine 0.6 Creat Clearance w eGFR > 60 Random Glucose 97 Calcium 8.2 L Phosphorus 3.8 Magnesium 2.1 Total Bilirubin 2.1 H D AST 24 ALT 33 Alkaline Phosphatase 79 Creatine Kinase 46 Total Protein 4.8 L Albumin 2.7 L Blood Type Antibody Screen Crossmatch Vital Signs Temperature 98.6 F 10/28/17 14:00 Pulse Rate 84 10/28/17 16:00 Respiratory Rate 18 10/28/17 16:00 Blood Pressure 142/60 10/28/17 16:00 O2 Sat by Pulse Oximetry (%) 98 10/28/17 09:00 CC: tension headache ````````````````` skin--pallor; IV site clean heart--RR lungs--grossly clear & unlabored abd--soft, NT neuro--alert; fully lucid & coherent; no gross deficits `````````````````````````````````` Summ > Anemia--2nd GI bleed; EGD did not show gastric/pyloric lesions; and thus likely source is a divertic bleed; Hgb at 9.1. PLAN: serial H/h; transfuse as needed > GI Bleed--divertic as per bleeding scan; bleeding has abated but has required 6 Uts of PC's; in this 2nd such episode. The decision is to remove the portion of colon involved: PLAN: will not be having Colonoscopy but instead will have Laparoscopic luis alberto-colectomy in AM. Condition optimized medically. > asthma--stable so far; PLAN: will RX low dose IV steroid for prophylaxis against post OP exacerbation > Anxiety--cont with current psychotropes ~~~~~~~~~~~~~~~~~~~~~~~~~~~ Dr Cortes Problem List - Problems (1) GI bleeding Code(s): K92.2 - GASTROINTESTINAL HEMORRHAGE, UNSPECIFIED Qualifiers: GI bleed type/associated pathology: melena Qualified Code(s): K92.1 - Melena (2) Anemia due to blood loss, acute Code(s): D62 - ACUTE POSTHEMORRHAGIC ANEMIA (3) Asthma Code(s): J45.909 - UNSPECIFIED ASTHMA, UNCOMPLICATED Qualifiers: Asthma severity: mild Asthma complication type: uncomplicated (4) Low back pain Code(s): M54.5 - LOW BACK PAIN Qualifiers: Chronicity: chronic Back pain laterality: right Sciatica presence: without sciatica Qualified Code(s): M54.5 - Low back pain; G89.29 - Other chronic pain; G89.29 - Other chronic pain (5) Hypertension Code(s): I10 - ESSENTIAL (PRIMARY) HYPERTENSION Qualifiers: Hypertension type: essential hypertension Qualified Code(s): I10 - Essential (primary) hypertension (6) Right bundle branch block (RBBB) Code(s): I45.10 - UNSPECIFIED RIGHT BUNDLE-BRANCH BLOCK (7) Chronic headaches Code(s): R51 - HEADACHE Qualifiers: Headache type: unspecified Intractability: not intractable Qualified Code (s): R51 - Headache (8) Osteoporosis Code(s): M81.0 - AGE-RELATED OSTEOPOROSIS W/O CURRENT PATHOLOGICAL FRACTURE Qualifiers: Osteoporosis type: unspecified (9) Anxiety Code(s): F41.9 - ANXIETY DISORDER, UNSPECIFIED
[2017-10-28] MEDS ORDERED: PT OWN MED DRAWER 7, Y5N ONE (19:35)
[2017-10-28] MEDS ORDERED: ONDANSETRON 4 MG/2 ML VIAL IVPUSH PRN (20:04)
[2017-10-28] MEDS ORDERED: ONDANSETRON 4 MG/2 ML VIAL ONE (20:06)
[2017-10-28] MEDS ORDERED: MIRTAZAPINE 15 MG TABLET (FP) ONE (22:19)
[2017-10-28] MEDS: MIRTAZAPINE 30 MG TABLET (FP) PO SCH (22:32)
[2017-10-28] MEDS: MONTELUKAST NA 10 MG TABLET PO SCH (22:33)
[2017-10-29] MEDS ORDERED: ACETAMINOPHEN 1000 MG/100 ML VIAL (NON FORMULARY) IVPB PRN (00:24)
[2017-10-29] MEDS ORDERED: methylPREDNISolone NA SUCC 40 MG/1 ML VIAL IVPB ONE (06:00)
[2017-10-29 07:01] LABS: ANION GAP 6 (8-16); BLOOD UREA NITROGEN 8 mg/dL (7-18); CALCIUM 7.9 mg/dL (8.5-10.1); CHLORIDE 116 mmol/L (98-107); CO2 25 mmol/L (21-32); CREATININE 0.7 mg/dL (0.55-1.02); GLUCOSE,RANDOM 99 mg/dL (74-106); MAGNESIUM 1.8 mg/dL (1.8-2.4); POTASSIUM 3.1 mmol/L (3.5-5.1); SODIUM 147 mmol/L (136-145)
[2017-10-29 07:12] LABS: HEMATOCRIT 25.2 % (32.4-45.2); HEMOGLOBIN 8.8 GM/dL (10.7-15.3); MCH 29.9 pg (25.7-33.7); MCHC 34.9 g/dl (32.0-36.0); MEAN CELL VOLUME 85.9 fl (80-96); MEAN PLT VOLUME 8.6 fl (7.5-11.1); PLATELET COUNT 195 K/MM3 (134-434); RBC 2.93 M/mm3 (3.60-5.2); RDW 15.2 % (11.6-15.6); WHITE BLOOD COUNT 8.5 K/mm3 (4.0-10.0)
[2017-10-29] MEDS ORDERED: POTASSIUM CHLORIDE 10 MEQ in SODIUM CHLORIDE 100 ML IVPB ONE (07:30)
[2017-10-29] MEDS ORDERED: POTASSIUM CHLORIDE 10 MEQ in SODIUM CHLORIDE 100 ML IVPB SCH (07:30)
[2017-10-29] MEDS: D5-1/2NS+10 MEQ KCL - 10 MEQ/1,000 ML INFUS.BAG IV SCH ×3 (07:38→19:56)
[2017-10-29] MEDS ORDERED: ROCURONIUM BROMIDE 50 MG/5 ML VIAL ONE ×2 (08:04→09:42)
[2017-10-29] MEDS ORDERED: fentaNYL CITRATE 250 MCG/5 ML VIAL ONE ×2 (08:04→10:24)
[2017-10-29] MEDS ORDERED: MIDAZOLAM HCL 2 MG/2 ML SINGLE DOSE VIAL ONE (08:04)
[2017-10-29] MEDS ORDERED: PROPOFOL 20 ML ONE ×2 (08:04)
[2017-10-29] MEDS ORDERED: LIDOCAINE HCL/PF 2% SDV 5ML VIAL ONE (08:05)
[2017-10-29] MEDS ORDERED: ALBUTEROL SO4 18 GM HFA INHALER IH ONE (08:31)
[2017-10-29] MEDS ORDERED: DEXAMETHASONE SOD PHOSPHATE 4 MG/1 ML VIAL ONE (08:51)
[2017-10-29] MEDS ORDERED: ONDANSETRON 4 MG/2 ML VIAL ONE (08:51)
[2017-10-29] MEDS ORDERED: CEFOXITIN SODIUM 2 GM IVPB ONE (08:53)
[2017-10-29] MEDS ORDERED: cefOXitin SODIUM 1 GM VIAL (RESTRICTED TO ID) IVPB ONE (08:56)
[2017-10-29] MEDS ORDERED: DESFLURANE GAS 240 ML BOTTLE IH ONE (09:26)
--- NOTE | 2017-10-29 10:28 | CONSULT ---
Consult - text type - Consultation Consultation Note: Attempted to see patient Went to OR
[2017-10-29] MEDS ORDERED: GLYCOPYRROLATE 0.2 MG/1 ML VIAL ONE (11:13)
[2017-10-29] MEDS ORDERED: NEOSTIGMINE METHYLSULFATE 0.5 MG/ML - 10 ML MDV ONE (11:13)
[2017-10-29] MEDS ORDERED: KETOROLAC TROMETHAMINE 30 MG/1 ML VIAL ONE (11:26)
--- NOTE | 2017-10-29 12:16 | OP ---
Operative Note - Note: Operative Date: 10/29/17 Pre-Operative Diagnosis: bleeding diverticulitis Operation: exploratory laparotomy, left hemicolectomy and partial omentectomy Post-Operative Diagnosis: Same as Pre-op Surgeon: Bob Nunez [place] Hand: Brian Gonzalez Anesthesiologist/LOADER OPERATOR SUPERVISOR: Russell De La Garza Anesthesia: General Specimens Removed: left colon (descending and sigmoid) stitch garrison hepatic flexture, part of omentum Estimated Blood Loss (mls): 150 Drains & Tubes with Location: virk, (ngt was removed) Drains, Volume Out (mls): 400 (virk) Blood Volume Replaced (mls): 350 (pRBC) Fluid Volume Replaced (mls): 3,500 Operative Report Dictated: Yes
--- NOTE | 2017-10-29 12:28 | PN ---
Progress Note (short form) - Note Progress Note: Seen in ICU post OP from left side hemicolectomy Extubated in PACU BP stable received PRBC x1 and NS x2 in OR Patient awake and cooperative w/o distress Current Medications Acetaminophen (Ofirmev Injection -) 1,000 mg IVPB Q6H PRN PRN Reason: FEVER Albuterol Sulfate (Ventolin 0.083% Nebulizer Soln -) 1 amp NEB Q8H PRN PRN Reason: SHORT OF BREATH/WHEEZING Albuterol Sulfate (Ventolin Hfa Inhaler -) 2 puff IH Q6H PRN PRN Reason: SHORT OF BREATH/WHEEZING Duloxetine HCl (Cymbalta -) 60 mg PO HS [facility] Last Admin: 10/27/17 21:17 Dose: 60 mg Hydromorphone HCl (Dilaudid Home Supervisor -) 0 mg LINE PRODUCTION COOK LINE PRODUCTION COOK [facility] PRN Reason: Protocol Stop: 11/05/17 12:20 Potassium Chloride/Dextrose/Sod Cl (D5-1/2ns+10 Meq Kcl -) 10 meq in 1,000 mls @ 50 mls/hr IV ASDIR [facility] Last Admin: 10/29/17 07:38 Dose: 50 mls/hr Lactated Ringer's (Lactated Ringers Solution) 1,000 mls @ 75 mls/hr IV ASDIR [facility] Mirtazapine (Remeron -) 30 mg PO HS [facility] Last Admin: 10/28/17 22:32 Dose: 30 mg Montelukast Sodium (Singulair -) 10 mg PO HS [facility] Last Admin: 10/28/17 22:33 Dose: 10 mg Ondansetron HCl (Zofran Injection) 4 mg IVPUSH Q6H PRN PRN Reason: NAUSEA Last Admin: 10/28/17 20:00 Dose: 4 mg Pantoprazole Sodium (Protonix -) 40 mg PO DAILY [facility] Last Admin: 10/28/17 09:47 Dose: 40 mg Fluticasone/Salmeterol (Advair 100mcg/50mcg -) 1 puff IH BID [facility] Topiramate (Topamax -) 100 mg PO BID [facility] Last Admin: 10/28/17 22:32 Dose: 100 mg Vital Signs Period Temp Pulse Resp BP Sys/Mckenzie Pulse Ox Last 24 Hr 97.6 F-99.4 F 73-94 16-22 92-142/44-80 99 Intake & Output 10/26/17 10/27/17 10/28/17 10/29/17 23:59 23:59 23:59 23:59 Intake Total 630 3755 5150 3950 Output Total 1780 100 560 Balance 630 1975 5050 3390 Weight 81.647 kg 83.28 kg 83.552 kg 83.098 kg General: lethargi, protecting airway HEENT: PERRL, no JVD Pulm: CTA CV: RRR Abd: obese, soft, tender, dressing c/d/i Ext: WWP no edema Neuro: awake, following commands, confused at times post op CBC, BMP 10/29/17 06:00 10/29/17 06:00 Current Active Problems Anemia due to blood loss, acute (Acute) Chronic headaches (Acute) Colon adenoma (Acute) Diverticulosis (Acute) GI bleeding (Acute) History of peptic ulcer (Acute) Right bundle branch block (RBBB) (Acute) PLAN: Normal transfusion thresholds , repeat cbc now post OP clear diet per surgery pain control O2 as needed incentive spirometery Mechanical VTE prophylaxis , OOB zhane IVF PPI daily Boerem ACNP Pulm/CCM CCT: 35m
[2017-10-29] MEDS ORDERED: HYDROmorphone *PCA* 10MG/50ML DISP.SYRIN PCA SCH ×2 (12:30→12:46)
[2017-10-29] MEDS ORDERED: LACTATED RINGERS SOLUTION 1,000 ML IV SCH (12:30)
[2017-10-29] MEDS: TOPIRAMATE 100 MG TABLET PO SCH ×2 (12:31→21:39)
[2017-10-29] MEDS: PANTOPRAZOLE 40 MG TABLET (FP) PO SCH (12:31)
[2017-10-29 12:41] LABS: HEMATOCRIT 28.9 % (32.4-45.2); HEMOGLOBIN 9.8 GM/dL (10.7-15.3); MCH 29.1 pg (25.7-33.7); MCHC 33.8 g/dl (32.0-36.0); MEAN PLT VOLUME 8.3 fl (7.5-11.1); PLATELET COUNT 200 K/MM3 (134-434); RBC 3.36 M/mm3 (3.60-5.2); WHITE BLOOD COUNT 12.4 K/mm3 (4.0-10.0)
[2017-10-29] MEDS ORDERED: ALBUTEROL SO4 18 GM HFA INHALER IH PRN (12:46)
[2017-10-29] MEDS ORDERED: ALBUTEROL SO4 0.083% IH SOL 2.5 MG/3 ML VIAL.NEB. NEB PRN (12:46)
[2017-10-29] MEDS: ONDANSETRON 4 MG/2 ML VIAL IVPUSH PRN ×2 (12:47→20:07)
[2017-10-29] MEDS ORDERED: HYDROmorphone *PCA* 6MG/30ML DISP.SYRIN PCA ONE (12:54)
[2017-10-29] MEDS: ACETAMINOPHEN 1000 MG/100 ML VIAL (NON FORMULARY) IVPB PRN (12:59)
[2017-10-29 13:08] LABS: ANION GAP 8 (8-16); BLOOD UREA NITROGEN 8 mg/dL (7-18); CALCIUM 7.3 mg/dL (8.5-10.1); CHLORIDE 114 mmol/L (98-107); CO2 24 mmol/L (21-32); CREATININE 0.8 mg/dL (0.55-1.02); GLUCOSE,RANDOM 217 mg/dL (74-106); MAGNESIUM 1.6 mg/dL (1.8-2.4); PHOSPHOROUS 4.1 mg/dL (2.5-4.9); SODIUM 146 mmol/L (136-145)
[2017-10-29] MEDS ORDERED: MAGNESIUM 1GM/D5W - 1 GM/100 ML IVPB IVPB ONE (13:26)
[2017-10-29] MEDS: CEFOXITIN SODIUM 2 GM in DEXTROSE 5%-WATER - 100 ML IVPB SCH ×2 (14:33→21:37)
--- NOTE | 2017-10-29 15:44 | PN ---
Progress Note (short form) - Note Progress Note: ^^^^^^^^^^^^ Medical.....ICU note ^^^^^^^^^^^^^^^^^ Current Medications Acetaminophen (Ofirmev Injection -) 1,000 mg IVPB Q6H PRN PRN Reason: FEVER Last Admin: 10/29/17 12:59 Dose: 1,000 mg Albuterol Sulfate (Ventolin 0.083% Nebulizer Soln -) 1 amp NEB Q8H PRN PRN Reason: SHORT OF BREATH/WHEEZING Albuterol Sulfate (Ventolin Hfa Inhaler -) 2 puff IH Q6H PRN PRN Reason: SHORT OF BREATH/WHEEZING Cefoxitin Sodium (Mefoxin (Restricted To Id) -) 2 gm IVPB Q6H-IV DMITRIY PRN Reason: Protocol Stop: 10/30/17 14:59 Chlorhexidine Gluconate (Hibiclens For Decolonization -) 1 applic TP HS DMITRIY Duloxetine HCl (Cymbalta -) 60 mg PO HS DMITRIY Hydromorphone HCl (Dilaudid Skin Pass Operator -) 0 mg DAIRY FROZEN MANAGER DAIRY FROZEN MANAGER DMITRIY PRN Reason: Protocol Stop: 11/05/17 12:20 Last Admin: 10/29/17 13:20 Dose: 0.2 mg Potassium Chloride/Dextrose/Sod Cl (D5-1/2ns+10 Meq Kcl -) 10 meq in 1,000 mls @ 50 mls/hr IV ASDIR DMITRIY Last Admin: 10/29/17 12:58 Dose: 50 mls/hr Cefoxitin Sodium 2 gm/ (Dextrose) 100 mls @ 200 mls/hr IVPB Q6H-IV DMITRIY Stop: 10/30/17 12:59 Last Admin: 10/29/17 14:33 Dose: 200 mls/hr Mirtazapine (Remeron -) 30 mg PO HS DMITRIY Montelukast Sodium (Singulair -) 10 mg PO HS DMITRIY Mupirocin (Bactroban Ointment (For Decolonization) -) 1 applic NS BID DMITRIY Stop: 11/03/17 21:59 Ondansetron HCl (Zofran Injection) 4 mg IVPUSH Q6H PRN PRN Reason: NAUSEA Last Admin: 10/29/17 12:47 Dose: 4 mg Pantoprazole Sodium (Protonix -) 40 mg PO DAILY [facility] Fluticasone/Salmeterol (Advair 100mcg/50mcg -) 1 puff IH BID [facility] Topiramate (Topamax -) 100 mg PO BID [facility] Laboratory Results - last 24 hr 10/26/17 10/28/17 10/29/17 10:30 15:40 06:00 WBC 8.5 RBC 2.93 L Hgb 8.8 L Hct 25.2 L MCV 85.9 MCH 29.9 MCHC 34.9 RDW 15.2 Plt Count 195 MPV 8.6 Sodium Potassium Chloride Carbon Dioxide Anion Gap BUN Creatinine Random Glucose Calcium Phosphorus Magnesium Blood Type A POSITIVE A POSITIVE Antibody Screen Negative Negative Crossmatch See Detail See Detail Crossmatch IS Only See Detail 10/29/17 10/29/17 10/29/17 06:00 12:30 12:30 WBC 12.4 H D RBC 3.36 L Hgb 9.8 L D Hct 28.9 L MCV 86.0 MCH 29.1 MCHC 33.8 RDW 15.0 Plt Count 200 MPV 8.3 Sodium 147 H 146 H Potassium 3.1 L 4.0 Chloride 116 H 114 H Carbon Dioxide 25 24 Anion Gap 6 L 8 BUN 8 8 Creatinine 0.7 0.8 Random Glucose 99 217 H Calcium 7.9 L 7.3 L Phosphorus 4.1 Magnesium 1.8 1.6 L Blood Type Antibody Screen Crossmatch Crossmatch IS Only Vital Signs Temperature 98 F 10/29/17 15:00 Pulse Rate 86 10/29/17 15:00 Respiratory Rate 16 10/29/17 15:00 Blood Pressure 115/50 10/29/17 15:00 O2 Sat by Pulse Oximetry (%) 100 10/29/17 13:23 CC: post op pain ``````````````````` skin--pallor; IV site clean heart--RR lungs--grossly clear & unlabored abd--dressing neuro--groggy but rousable (on Dilaudid infusion) `````````````````````````````````` Summ > GI Bleed--2nd divertic dz, and now s/p Lt hemicolectomy as described. Now NPO , Mgmt as per surgery. > anemia--as described; will check post OP counts > low Potassium/Mag--replenish as needed > asthma--stable so far. > high glucose--no Hx of DM; will do BGMs; likely 2nd use of IV steroid > Anxiety--cont with current psychotropes when able to take PO meds ~~~~~~~~~~~~~~~~~~~~~~~~~~~ Dr Cortes Problem List - Problems (1) GI bleeding Code(s): K92.2 - GASTROINTESTINAL HEMORRHAGE, UNSPECIFIED Qualifiers: GI bleed type/associated pathology: melena Qualified Code(s): K92.1 - Melena (2) Anemia due to blood loss, acute Code(s): D62 - ACUTE POSTHEMORRHAGIC ANEMIA (3) Asthma Code(s): J45.909 - UNSPECIFIED ASTHMA, UNCOMPLICATED Qualifiers: Asthma severity: mild Asthma complication type: uncomplicated (4) Low back pain Code(s): M54.5 - LOW BACK PAIN Qualifiers: Chronicity: chronic Back pain laterality: right Sciatica presence: without sciatica Qualified Code(s): M54.5 - Low back pain; G89.29 - Other chronic pain; G89.29 - Other chronic pain (5) Hypertension Code(s): I10 - ESSENTIAL (PRIMARY) HYPERTENSION Qualifiers: Hypertension type: essential hypertension Qualified Code(s): I10 - Essential (primary) hypertension (6) Right bundle branch block (RBBB) Code(s): I45.10 - UNSPECIFIED RIGHT BUNDLE-BRANCH BLOCK (7) Chronic headaches Code(s): R51 - HEADACHE Qualifiers: Headache type: unspecified Intractability: not intractable Qualified Code (s): R51 - Headache (8) Osteoporosis Code(s): M81.0 - AGE-RELATED OSTEOPOROSIS W/O CURRENT PATHOLOGICAL FRACTURE Qualifiers: Osteoporosis type: unspecified (9) Anxiety Code(s): F41.9 - ANXIETY DISORDER, UNSPECIFIED
[2017-10-29] MEDS ORDERED: HYDROmorphone *PCA* 6MG/30ML DISP.SYRIN PCA SCH (16:00)
[2017-10-29] MEDS ORDERED: PT OWN MED DRAWER 7, Y5N ONE (17:50)
[2017-10-29] MEDS ORDERED: MIRTAZAPINE 15 MG TABLET (FP) ONE (21:25)
[2017-10-29] MEDS: MUPIROCIN 2% TOPICAL OINTMENT FOR DECOLONIZATION NS SCH (21:37)
[2017-10-29] MEDS: FLUTICASONE/SALMETEROL 100 MCG/50 MCG DISKUS IH SCH (21:58)
[2017-10-29] MEDS ORDERED: FLUTICASONE/SALMETEROL 100 MCG/50 MCG DISKUS IH SCH (22:00)
[2017-10-29] MEDS ORDERED: MIRTAZAPINE 30 MG TABLET (FP) PO SCH (22:00)
[2017-10-29] MEDS ORDERED: DULoxetine HCL 30 MG CAPSULE.DR (FP) PO SCH (22:00)
[2017-10-29] MEDS ORDERED: CHLORHEXIDINE GLUCONATE 4% CLEANSER FOR DECOLONIZATION TP SCH (22:00)
[2017-10-29] MEDS ORDERED: MONTELUKAST NA 10 MG TABLET PO SCH (22:00)
[2017-10-30] MEDS: CEFOXITIN SODIUM 2 GM in DEXTROSE 5%-WATER - 100 ML IVPB SCH ×2 (03:00→09:05)
[2017-10-30] MEDS ORDERED: HYDROmorphone *PCA* 6MG/30ML DISP.SYRIN PCA ONE (03:20)
[2017-10-30 06:35] LABS: HEMATOCRIT 23.9 % (32.4-45.2); HEMOGLOBIN 8.2 GM/dL (10.7-15.3); MCH 29.6 pg (25.7-33.7); MCHC 34.3 g/dl (32.0-36.0); MEAN CELL VOLUME 86.3 fl (80-96); MEAN PLT VOLUME 9.2 fl (7.5-11.1); PLATELET COUNT 204 K/MM3 (134-434); RBC 2.76 M/mm3 (3.60-5.2); RDW 15.8 % (11.6-15.6); WHITE BLOOD COUNT 14.5 K/mm3 (4.0-10.0)
[2017-10-30 06:57] LABS: INR 1.7 (0.82-1.09); PROTHROMBIN TIME (PATIENT) 19.2 SEC (9.98-11.88)
[2017-10-30 06:59] LABS: ANION GAP 10 (8-16); BLOOD UREA NITROGEN 13 mg/dL (7-18); CALCIUM 7.4 mg/dL (8.5-10.1); CHLORIDE 112 mmol/L (98-107); CO2 23 mmol/L (21-32); GLUCOSE,RANDOM 125 mg/dL (74-106); MAGNESIUM 1.8 mg/dL (1.8-2.4); POTASSIUM 3.6 mmol/L (3.5-5.1); SODIUM 145 mmol/L (136-145)
[2017-10-30 07:00] LABS: ACTIVATED PTT 26.5 SECONDS (26.9-34.4)
[2017-10-30 07:01] LABS: PHOSPHOROUS 3.2 mg/dL (2.5-4.9)
--- NOTE | 2017-10-30 08:44 | PN ---
Progress Note (short form) - Note Progress Note: Anesthesia postop note/pain management follow up 67 y/o f s/p GA for Left hemicolectomy, visitor services representative for pain management POD#1, vss, aaox3, pain well controlled, anemia, trying to have breakfast No anesthesia complications, will continue visitor services representative today.
--- NOTE | 2017-10-30 08:51 | PN ---
Progress Note, Physician Chief Complaint: postop History of Present Illness: denies palpitations, cp, sob. mild abdomen pain at surgery site - Current Medication List Current Medications: Active Medications Acetaminophen (Ofirmev Injection -) 1,000 mg IVPB Q6H PRN PRN Reason: FEVER Last Admin: 10/29/17 12:59 Dose: 1,000 mg Albuterol Sulfate (Ventolin 0.083% Nebulizer Soln -) 1 amp NEB Q8H PRN PRN Reason: SHORT OF BREATH/WHEEZING Albuterol Sulfate (Ventolin Hfa Inhaler -) 2 puff IH Q6H PRN PRN Reason: SHORT OF BREATH/WHEEZING Cefoxitin Sodium (Mefoxin (Restricted To Id) -) 2 gm IVPB Q6H-IV DMITRIY PRN Reason: Protocol Stop: 10/30/17 14:59 Chlorhexidine Gluconate (Hibiclens For Decolonization -) 1 applic TP [facility] Last Admin: 10/29/17 21:38 Dose: 1 applic Duloxetine HCl (Cymbalta -) 60 mg PO HS [facility] Hydromorphone HCl (Dilaudid Placement Manager -) 0 mg OIL FIELD WORKER OIL FIELD WORKER DMITRIY PRN Reason: Protocol Last Admin: 10/29/17 13:20 Dose: 0.2 mg Potassium Chloride/Dextrose/Sod Cl (D5-1/2ns+10 Meq Kcl -) 10 meq in 1,000 mls @ 50 mls/hr IV ASDIR DMITRIY Last Admin: 10/29/17 12:58 Dose: 50 mls/hr Cefoxitin Sodium 2 gm/ (Dextrose) 100 mls @ 200 mls/hr IVPB Q6H-IV DMITRIY Stop: 10/30/17 12:59 Last Admin: 10/30/17 03:00 Dose: 200 mls/hr Mirtazapine (Remeron -) 30 mg PO HS [facility] Last Admin: 10/29/17 21:38 Dose: 30 mg Montelukast Sodium (Singulair -) 10 mg PO HS [facility] Last Admin: 10/29/17 21:38 Dose: 10 mg Mupirocin (Bactroban Ointment (For Decolonization) -) 1 applic NS BID [facility] Stop: 11/03/17 21:59 Last Admin: 10/29/17 21:37 Dose: 1 applic Ondansetron HCl (Zofran Injection) 4 mg IVPUSH Q6H PRN PRN Reason: NAUSEA Last Admin: 10/29/17 20:07 Dose: 4 mg Pantoprazole Sodium (Protonix -) 40 mg PO DAILY [facility] Fluticasone/Salmeterol (Advair 100mcg/50mcg -) 1 puff IH BID [facility] Last Admin: 10/29/17 21:58 Dose: 1 puff Topiramate (Topamax -) 100 mg PO BID [facility] Last Admin: 10/29/17 21:39 Dose: 100 mg - Objective Vital Signs: Vital Signs Temperature 98.4 F 10/30/17 06:00 Pulse Rate 96 H 10/30/17 06:00 Respiratory Rate 18 10/30/17 06:00 Blood Pressure 97/66 10/30/17 06:00 O2 Sat by Pulse Oximetry (%) 100 10/29/17 21:00 Constitutional: Yes: Well Nourished, No Distress, Calm Cardiovascular: Yes: Regular Rate and Rhythm, S1, S2. No: Gallop, Murmur Respiratory: Yes: Regular, CTA Bilaterally. No: Accessory Muscle Use, Rales, Wheezes Extremities: No: Cold Edema: No Neurological: Yes: Alert, Oriented Psychiatric: No: Agitated Labs: CBC, BMP 10/30/17 05:22 10/30/17 05:22 INR, PTT INR 1.70 (0.82-1.09) H D 10/30/17 05:22 - ....Imaging EKG: Other (tele: NSR. brief run PAT) Assessment/Plan ECG 10/26/2017: NSR at 101/min with LVH and RBBB--essentially unchanged compared to her prior ECG done on 01/2016 Echo 12/2016: Normal biventricular size and function with no significant valvular abnormality. Stress MPI 12/2016, pharmacological stress: Normal MPI, no ischemia, LVEF 60% Assessment/Plan 67 yo female (+) tobacco history and strong family h/o ASCVD Now with GI Bleed requiring transfusion Planning for left hemicolectomy GIB s/p bowel surgery: -postop care per surgery -mildly tachycardic, low-range bp's -cont IVF, low threshold to increase as pt likely dry -monitor H/H with routine care per surgery PAT: -brief run atrial tach on tele -cont tele monitoring, defer BB prophylaxis unless recurrences are seen
[2017-10-30] MEDS ORDERED: PT OWN MED DRAWER 7, Y5N ONE ×2 (09:04→18:13)
[2017-10-30] MEDS ORDERED: MAGNESIUM OXIDE 400 MG TABLET (FP) PO ONE (09:30)
[2017-10-30] MEDS: FLUTICASONE/SALMETEROL 100 MCG/50 MCG DISKUS IH SCH ×2 (09:58→21:28)
[2017-10-30] MEDS ORDERED: PANTOPRAZOLE 40 MG TABLET (FP) PO SCH (10:00)
[2017-10-30] MEDS: TOPIRAMATE 100 MG TABLET PO SCH (10:01)
--- NOTE | 2017-10-30 10:35 | PN ---
Progress Note, Physician Chief Complaint: LGIB History of Present Illness: 67 yo female HTN, asthma, chronic Headaches, diverticular disease, OA of spine, GERD, "bleeding ulcer" at age of 8, prior admission in February 2016 with diverticular bleed who presents with dark blood per rectum for 1 week. - Current Medication List Current Medications: Active Medications Acetaminophen (Ofirmev Injection -) 1,000 mg IVPB Q6H PRN PRN Reason: FEVER Last Admin: 10/29/17 12:59 Dose: 1,000 mg Albuterol Sulfate (Ventolin 0.083% Nebulizer Soln -) 1 amp NEB Q8H PRN PRN Reason: SHORT OF BREATH/WHEEZING Albuterol Sulfate (Ventolin Hfa Inhaler -) 2 puff IH Q6H PRN PRN Reason: SHORT OF BREATH/WHEEZING Cefoxitin Sodium (Mefoxin (Restricted To Id) -) 2 gm IVPB Q6H-IV DMITRIY PRN Reason: Protocol Stop: 10/30/17 14:59 Chlorhexidine Gluconate (Hibiclens For Decolonization -) 1 applic TP HS [facility] Last Admin: 10/29/17 21:38 Dose: 1 applic Duloxetine HCl (Cymbalta -) 60 mg PO HS DMITRIY Hydromorphone HCl (Dilaudid School Secretary -) 0 mg CLOSET BUILDER CLOSET BUILDER DMITRIY PRN Reason: Protocol Last Admin: 10/29/17 13:20 Dose: 0.2 mg Potassium Chloride/Dextrose/Sod Cl (D5-1/2ns+10 Meq Kcl -) 10 meq in 1,000 mls @ 50 mls/hr IV ASDIR DMITRIY Last Admin: 10/29/17 12:58 Dose: 50 mls/hr Cefoxitin Sodium 2 gm/ (Dextrose) 100 mls @ 200 mls/hr IVPB Q6H-IV DMITRIY Stop: 10/30/17 12:59 Last Admin: 10/30/17 09:05 Dose: 200 mls/hr Mirtazapine (Remeron -) 30 mg PO HS DMITRIY Last Admin: 10/29/17 21:38 Dose: 30 mg Montelukast Sodium (Singulair -) 10 mg PO HS [facility] Last Admin: 10/29/17 21:38 Dose: 10 mg Mupirocin (Bactroban Ointment (For Decolonization) -) 1 applic NS BID DMITRIY Stop: 11/03/17 21:59 Last Admin: 10/29/17 21:37 Dose: 1 applic Ondansetron HCl (Zofran Injection) 4 mg IVPUSH Q6H PRN PRN Reason: NAUSEA Last Admin: 10/29/17 20:07 Dose: 4 mg Pantoprazole Sodium (Protonix -) 40 mg PO DAILY [facility] Last Admin: 10/30/17 10:01 Dose: 40 mg Fluticasone/Salmeterol (Advair 100mcg/50mcg -) 1 puff IH BID [facility] Last Admin: 10/30/17 09:58 Dose: 1 puff Topiramate (Topamax -) 100 mg PO BID [facility] Last Admin: 10/30/17 10:01 Dose: 100 mg - Objective Vital Signs: Vital Signs Temperature 100.1 F H 10/30/17 10:00 Pulse Rate 100 H 10/30/17 10:00 Respiratory Rate 19 10/30/17 10:00 Blood Pressure 126/59 10/30/17 10:00 O2 Sat by Pulse Oximetry (%) 100 10/29/17 21:00 Vital Signs Period Temp Pulse Resp BP Sys/Mckenzie Pulse Ox Last 24 Hr 98 F-100.1 F 86-105 10-19 97-134/40-67 100-100 Intake & Output 10/29/17 10/30/17 10/30/17 23:59 07:59 15:59 Intake Total 800 1450 Output Total 750 400 Balance 50 1050 Weight 182 lb 6.4 oz Intake: IV 600 1200 D5-1/2NS+10 MEQ KCL - 10 600 meq In 1,000 ml @ 50 mls/ hr IV ASDIR DMITRIY Rx#: [id number] D5-1/2NS+10 MEQ KCL - 10 600 600 meq In 1,000 ml @ 50 mls/ hr IV ASDIR DMITRIY Rx#: [id number] IVPB 100 200 Oral 100 50 Output: Urine 750 400 Virk 750 400 Other: Voiding Method Indwelling Catheter Bowel Movement Yes Weight Measurement Method [facility] [place] Constitutional: Yes: No Distress, Calm, Obese Eyes: Yes: Conjunctiva Clear, EOM Intact HENT: Yes: Atraumatic, Normocephalic Neck: Yes: Supple, Trachea Midline Cardiovascular: Yes: Regular Rate and Rhythm, S1, S2. No: Murmur Respiratory: Yes: Regular, CTA Bilaterally Gastrointestinal: Yes: Normal Bowel Sounds, Soft, Hypoactive Bowel Sounds, Tenderness (incisonal). No: Tenderness, Epigastrium, Tenderness, Rebound Genitourinary: No: CVA Tenderness - Left, CVA Tenderness - Right, Virk Present Extremities: No: Cool, Cyanosis Edema: No Peripheral Pulses WNL: Yes Wound/Incision: Yes: Clean/Dry, Dressing Dry and Intact Neurological: Yes: Alert, Oriented Psychiatric: Yes: Alert, Oriented Labs: CBC, BMP 10/30/17 05:22 10/30/17 05:22 INR, PTT INR 1.70 (0.82-1.09) H D 10/30/17 05:22 Problem List - Problems (1) Anemia due to blood loss, acute Assessment/Plan: 67 yo female MMP with previous episode of diverticular bleed that required hospiatlization but was treated non operatively, This time her presenting H&H was 5.9/18 now after 6 units RBC its 7.6/25 still actively bleeding per rectum. EGD ruled out upper GI source. Previous colonoscopy showed Sigmoid colon focused diverticular disease. POD#1 s/p left hemicolectomy and partial omentectomy for bleeing diverticulosis. Low grade fever 100.4, WBC 12.4 and 14.5 post op, on Mefoxin may need boarder spectrum coverage, tolerating clears no BM or flatus. clear liquid diet Transfuse as indicated by hemodynamics ID for continued IV antibiotics trend CBC Out of bed to chair and ambulate as tolerated Physical therapy evaluation Continue CLOSET BUILDER D/C virk Incentive spirometer She may be suitable for transfer today This patient is critically ill. Time spent reviewing chart, examining patient, talking with providers and/or family and documentation is 35 minutes Code(s): D62 - ACUTE POSTHEMORRHAGIC ANEMIA (2) Diverticulosis Code(s): K57.90 - DVRTCLOS OF INTEST, PART UNSP, W/O PERF OR ABSCESS W/O BLEED (3) History of peptic ulcer Code(s): Z87.11 - PERSONAL HISTORY OF PEPTIC ULCER DISEASE (4) Right bundle branch block (RBBB) Code(s): I45.10 - UNSPECIFIED RIGHT BUNDLE-BRANCH BLOCK (5) Asthma Code(s): J45.909 - UNSPECIFIED ASTHMA, UNCOMPLICATED Qualifiers: Asthma severity: mild Asthma complication type: uncomplicated (6) GERD (gastroesophageal reflux disease) Code(s): K21.9 - GASTRO-ESOPHAGEAL REFLUX DISEASE WITHOUT ESOPHAGITIS Qualifiers: Esophagitis presence: without esophagitis Qualified Code(s): K21.9 - Gastro -esophageal reflux disease without esophagitis (7) Hypertension Code(s): I10 - ESSENTIAL (PRIMARY) HYPERTENSION Qualifiers: Hypertension type: essential hypertension Qualified Code(s): I10 - Essential (primary) hypertension (8) Low back pain Code(s): M54.5 - LOW BACK PAIN Qualifiers: Chronicity: chronic Back pain laterality: right Sciatica presence: without sciatica Qualified Code(s): M54.5 - Low back pain; G89.29 - Other chronic pain; G89.29 - Other chronic pain
--- NOTE | 2017-10-30 10:53 | PN ---
GI Progress Note Subjective: GI Note: Has expected postop discomfort. Fever to 101 noted, No cough. Surgical efforts are appreciated. Left colon was resected and anastomosis done yesterday. - Objective Vital Signs: Vital Signs Temperature 100.1 F H 10/30/17 10:00 Pulse Rate 100 H 10/30/17 10:00 Respiratory Rate 19 10/30/17 10:00 Blood Pressure 126/59 10/30/17 10:00 O2 Sat by Pulse Oximetry (%) 100 10/29/17 21:00 Laboratory Tests 10/30/17 10/30/17 05:22 05:22 WBC 14.5 H Hgb 8.2 L D BUN 13 Creatinine 1.0 Constitutional: Calm Gastrointestinal Inspection: Yes: Distention, Scars (healing incision) ...Auscultate: Yes: No Bowel Sounds ...Palpate: Yes: Soft Labs: CBC, BMP 10/30/17 05:22 10/30/17 05:22 INR, PTT INR 1.70 (0.82-1.09) H D 10/30/17 05:22 Problem List - Problems (1) GI bleeding Assessment/Plan: Sylvie is day 1 s/p left hemicolectomy for recurrent diverticular bleeding. Has postop ileus and pehaps some atelectasis. If fevers persists will need CT to exclude an anastomotic leak. I discussed the case with Dr Nunez. He will attend to postop management Code(s): K92.2 - GASTROINTESTINAL HEMORRHAGE, UNSPECIFIED Qualifiers: Qualified Code(s): K92.1 - Melena (2) Colon adenoma Code(s): D12.6 - BENIGN NEOPLASM OF COLON, UNSPECIFIED (3) Diverticulosis Code(s): K57.90 - DVRTCLOS OF INTEST, PART UNSP, W/O PERF OR ABSCESS W/O BLEED (4) History of peptic ulcer Code(s): Z87.11 - PERSONAL HISTORY OF PEPTIC ULCER DISEASE (5) Anemia due to blood loss, acute Code(s): D62 - ACUTE POSTHEMORRHAGIC ANEMIA
[2017-10-30] MEDS: MUPIROCIN 2% TOPICAL OINTMENT FOR DECOLONIZATION NS SCH (10:57)
[2017-10-30] MEDS: ACETAMINOPHEN 1000 MG/100 ML VIAL (NON FORMULARY) IVPB PRN ×2 (11:11→18:19)
[2017-10-30] MEDS: D5-1/2NS+10 MEQ KCL - 10 MEQ/1,000 ML INFUS.BAG IV SCH ×3 (12:00→23:41)
--- NOTE | 2017-10-30 12:20 | CON.ID ---
Consult Consult Specialty:: infectious diseases Referred by:: Reason for Consultation:: leukocytosis. post op - History of Present Illness Chief Complaint: gi bleed History of Present Illness: 67 yo female HTN, asthma, chronic Headaches, diverticular disease, OA of spine, GERD, "bleeding ulcer" at age of 8, prior admission in February 2016 with diverticular bleed was admitted because of dark blood per rectum since Monday. according to her the bleeding was quite a lot followed by abd pain. and patient was feeling lightheaded and weak. . She drinks only occasional alcohol. She does take DICLOFENAC for her chronic LBP and also takes KCL & Cymbalta (neither are new). patient has had gi bleeds before and were managed her last bleed before this was in late 2017 and was treated non operatively patient was admitted to the icu received blood transfusions and was seen by surgery and patient underwent left hemicolectomy upper endioscopy was done by gi and now source was found . She has a history of diverticular bleed, endoscopy 02/04/[address] Glasgow shows moderated to severe diverticulosis concentrated in the sigmoid colon with scattered diverticulum throughout the colon. We were called to assess. 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) - Past Surgical History Past Surgical History: Yes: Cataract Removal, Colonoscopy, Craniotomy (for "benign tumor" age 13 which has recurred), Upper Endoscopy Additional Surgical History: Left ovarian cystectomy - Alcohol/Substance Use Hx Alcohol Use: Yes (WINE WITH DINNER) History of Substance Use: reports: None - Smoking History Smoking history: Former smoker Have you smoked in the past 12 months: No Aproximately how many cigarettes per day: 0 If you are a former smoker, when did you quit?: 01/2014 - Social History Usual Living Arrangement: With Spouse ADL: Independent 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 History of Recent Travel: No Home Medications - Allergies Allergies/Adverse Reactions: Allergies Allergy/AdvReac Type Severity Reaction Status Date / Time morphine Allergy Severe VOMITING,HALLUCINATIONS, Verified 10/26/17 09:57 WAS TOLD TO NEVER TAKE IT AGAIN - Home Medications Home Medications: Ambulatory Orders B-Complex with Vitamin C [B-Complex with C] 1 each PO DAILY 02/01/16 Calcium Carb, Citrate/Vit D3 [Calcium + D3 ER Tablet] 1 each PO DAILY 02/01/16 Cholecalciferol (Vitamin D3) [D3-2000] 2,000 unit PO DAILY 02/01/16 Cyanocobalamin [Vitamin B12 -] 500 mcg PO DAILY 02/01/16 Mirtazapine 30 mg PO HS 02/01/16 Multivitamin [Poly-Vitamin] 1 each PO DAILY 02/01/16 Topiramate 100 mg PO BID 02/01/16 Duloxetine HCl [Cymbalta -] 30 mg PO HS 01/05/17 Potassium Chloride [Klor-Con] 20 meq PO DAILY 01/05/17 Vitamin E 400 unit PO DAILY 01/05/17 Prednisone 10 mg PO DAILY 01/16/17 Acetaminophen with Codeine [Tylenol with Codeine #3 Tablet] 1 each PO BID PRN # 30 tablet MDD 2 01/18/17 Albuterol Sulfate Inhaler - [Ventolin HFA Inhaler -] 1 puff IH QID PRN #0 inhaler 01/18/17 Diazepam [Valium] 5 mg PO DAILY PRN #20 tablet NS MDD 1 01/18/17 Topiramate [Topamax -] 100 mg PO BID tablet 01/18/17 Family Disease History - Family Disease History Family Disease History: Heart Disease: Father ( during CABG age 67), Mother ( [place] age 85), Brother (morbid obesity) Review of Systems - Review of Systems Constitutional: reports: No Symptoms Eyes: reports: No Symptoms HENT: reports: No Symptoms Neck: reports: No Symptoms Cardiovascular: reports: No Symptoms Respiratory: reports: No Symptoms Gastrointestinal: reports: Rectal Bleeding Genitourinary: reports: No Symptoms Musculoskeletal: reports: No Symptoms Integumentary: reports: No Symptoms Neurological: reports: No Symptoms Endocrine: reports: No Symptoms Hematology/Lymphatic: reports: No Symptoms Psychiatric: reports: No Symptoms Physical Exam Vital Signs: Vital Signs Temperature 100.1 F H 10/30/17 10:00 Pulse Rate 100 H 10/30/17 10:00 Respiratory Rate 19 10/30/17 10:00 Blood Pressure 126/59 10/30/17 10:00 O2 Sat by Pulse Oximetry (%) 100 10/29/17 21:00 Constitutional: Yes: Well Nourished, No Distress, Calm Eyes: Yes: Conjunctiva Clear Neck: Yes: Supple, Trachea Midline Cardiovascular: Yes: Regular Rate and Rhythm, Murmur (systolic) Respiratory: Yes: Regular, CTA Bilaterally Gastrointestinal: Yes: Soft, Hypoactive Bowel Sounds Musculoskeletal: Yes: WNL Extremities: Yes: WNL Wound/Incision: Yes: Dressing Dry and Intact Neurological: Yes: Alert, Oriented Psychiatric: Yes: Alert, Oriented Labs: CBC, BMP 10/30/17 05:22 10/30/17 05:22 Imaging - Results Chest X-ray: Report Reviewed, Image Reviewed Cat Scan: Report Reviewed, Image Reviewed Assessment/Plan 67 yo female with diverticular bleed s/p post op left hemicolectomy now stable and doing well except increasing wbc patient with no complaints at this moment Problem List - Problems (1) Anemia due to blood loss, acute Code(s): D62 - ACUTE POSTHEMORRHAGIC ANEMIA (2) Diverticulosis Code(s): K57.90 - DVRTCLOS OF INTEST, PART UNSP, W/O PERF OR ABSCESS W/O BLEED (3) History of peptic ulcer Code(s): Z87.11 - PERSONAL HISTORY OF PEPTIC ULCER DISEASE (4) Right bundle branch block (RBBB) Code(s): I45.10 - UNSPECIFIED RIGHT BUNDLE-BRANCH BLOCK (5) Asthma Code(s): J45.909 - UNSPECIFIED ASTHMA, UNCOMPLICATED Qualifiers: Asthma severity: mild Asthma complication type: uncomplicated (6) GERD (gastroesophageal reflux disease) Code(s): K21.9 - GASTRO-ESOPHAGEAL REFLUX DISEASE WITHOUT ESOPHAGITIS Qualifiers: Esophagitis presence: without esophagitis Qualified Code(s): K21.9 - Gastro -esophageal reflux disease without esophagitis (7) Hypertension Code(s): I10 - ESSENTIAL (PRIMARY) HYPERTENSION Qualifiers: Hypertension type: essential hypertension Qualified Code(s): I10 - Essential (primary) hypertension (8) Low back pain Code(s): M54.5 - LOW BACK PAIN Qualifiers: Chronicity: chronic Back pain laterality: right Sciatica presence: without sciatica Qualified Code(s): M54.5 - Low back pain; G89.29 - Other chronic pain; G89.29 - Other chronic pain plan will change abx hydration as needed close watch on wbc rest continue as per surgery and icu cc time 40 min
[2017-10-30] MEDS ORDERED: ALBUTEROL SO4 18 GM HFA INHALER IH PRN (13:13)
[2017-10-30] MEDS: cefOXitin SODIUM 2 GM VIAL (RESTRICTED TO ID) IVPB SCH (13:14)
--- NOTE | 2017-10-30 13:26 | PN ---
Teaching Attending Note Name of Resident: Beto Pacheco ATTENDING PHYSICIAN STATEMENT I saw and evaluated the patient. I reviewed the resident's note and discussed the case with the resident. I agree with the resident's findings and plan as documented. SUBJECTIVE: Pt seen and examined in the ICU. Pain controlled. No nausea or vomiting. No flatus or bowel movements. OBJECTIVE: Last Vital Signs Temp Pulse Resp BP Pulse Ox 99.4 F 95 H 18 108/46 95 10/30/17 12:00 10/30/17 12:00 10/30/17 12:00 10/30/17 12:00 10/30/17 09:00 Intake & Output 10/27/17 10/28/17 10/29/17 10/30/17 23:59 23:59 23:59 23:59 Intake Total 3755 5150 4850 1450 Output Total 1533 794 9537 400 Balance 1975 5050 3540 1050 Weight 83.28 kg 83.552 kg 83.098 kg 82.735 kg Gen: NAD at rest Heart: RRR Lung: decreased breath sounds at the bases Abd: soft, appropriately tender Ext: no edema CBC, BMP 10/30/17 05:22 10/30/17 05:22 Active Medications Acetaminophen (Ofirmev Injection -) 1,000 mg IVPB Q6H PRN PRN Reason: FEVER Albuterol Sulfate (Ventolin 0.083% Nebulizer Soln -) 1 amp NEB Q8H PRN PRN Reason: SHORT OF BREATH/WHEEZING Albuterol Sulfate (Ventolin Hfa Inhaler -) 2 puff IH Q6H PRN PRN Reason: SHORT OF BREATH/WHEEZING Chlorhexidine Gluconate (Hibiclens For Decolonization -) 1 applic TP HS DMITRIY Hydromorphone HCl (Dilaudid Staff Mechanical Engineer -) 0 mg FREIGHT TEAM ASSOCIATE FREIGHT TEAM ASSOCIATE DMITRIY PRN Reason: Protocol Piperacillin/Tazobactam/Dextrose (Zosyn 3.375gm Ivpb (Premix)) 50 mls @ 100 mls /hr IVPB Q8H-IV DMITRIY PRN Reason: Protocol Potassium Chloride/Dextrose/Sod Cl (D5-1/2ns+10 Meq Kcl -) 10 meq in 1,000 mls @ 50 mls/hr IV ASDIR DMITRIY Mirtazapine (Remeron -) 30 mg PO HS DMITRIY Montelukast Sodium (Singulair -) 10 mg PO HS [facility] Mupirocin (Bactroban Ointment (For Decolonization) -) 1 applic NS BID [facility] Stop: 11/03/17 21:59 Ondansetron HCl (Zofran Injection) 4 mg IVPUSH Q6H PRN PRN Reason: NAUSEA Pantoprazole Sodium (Protonix -) 40 mg PO DAILY [facility] Fluticasone/Salmeterol (Advair 100mcg/50mcg -) 1 puff IH BID [facility] Topiramate (Topamax -) 100 mg PO BID [facility] ASSESSMENT AND PLAN: GI bleed Diverticulosis Acute Blood Loss Anemia s/p ex-lap/Left Hemicolectomy/Partial Omentectomy/Transverse-Rectal Anastamosis - pain control - incentive spirometry - IVF - monitor lytes - await return of bowel function - OOB to chair - DVT prophylaxis - can monitor on floor
--- NOTE | 2017-10-30 13:58 | PN ---
Physical Exam: SUBJECTIVE: Patient seen and examined. No acute events overnight. Pt denies nausea, emesis, and diarrhea. She has not passed flatus since her surgery. She has 6/10 abdominal pain. OBJECTIVE: Vital Signs Period Temp Pulse Resp BP Sys/Mckenzie Pulse Ox Last 24 Hr 98 F-100.4 F 86-105 10-19 97-134/40-66 95-100 GENERAL: elderly female, lying in bed, in NAD HEENT: NC, AT LUNGS: poor inspiratory effort HEART: Regular rate and rhythm, S1, S2 without murmur, rub or gallop. ABDOMEN: bandage overlying midline incision. hypoactive BS, soft, minimally tender around incision site EXTREMITIES: 2+ pulses, warm, well-perfused, no edema. NEUROLOGICAL: Cranial nerves II through XII grossly intact. Normal speech, gait not observed. Laboratory Results - last 24 hr 10/26/17 10/28/17 10/30/17 10:30 15:40 05:22 WBC 14.5 H RBC 2.76 L Hgb 8.2 L D Hct 23.9 L D MCV 86.3 MCH 29.6 MCHC 34.3 RDW 15.8 H Plt Count 204 MPV 9.2 D PT with INR INR PTT (Actin FS) Sodium Potassium Chloride Carbon Dioxide Anion Gap BUN Creatinine Random Glucose Calcium Phosphorus Magnesium Blood Type A POSITIVE A POSITIVE Antibody Screen Negative Negative Crossmatch See Detail See Detail Crossmatch IS Only See Detail 10/30/17 10/30/17 05:22 05:22 WBC RBC Hgb Hct MCV MCH MCHC RDW Plt Count MPV PT with INR 19.20 H INR 1.70 H D PTT (Actin FS) 26.5 L Sodium 145 Potassium 3.6 Chloride 112 H Carbon Dioxide 23 Anion Gap 10 BUN 13 Creatinine 1.0 Random Glucose 125 H Calcium 7.4 L Phosphorus 3.2 Magnesium 1.8 Blood Type Antibody Screen Crossmatch Crossmatch IS Only Active Medications Generic Name Dose Route Start Last Admin Trade Name Freq PRN Reason Stop Dose Admin Acetaminophen 1,000 mg 10/30/17 13:13 Ofirmev Injection - IVPB Q6H PRN FEVER Albuterol Sulfate 1 amp 10/30/17 13:13 Ventolin 0.083% Nebulizer Soln - NEB Q8H PRN SHORT OF BREATH/WHEEZING Albuterol Sulfate 2 puff 10/30/17 13:13 Ventolin Hfa Inhaler - IH Q6H PRN SHORT OF BREATH/WHEEZING Chlorhexidine Gluconate 1 applic 10/30/17 22:00 Hibiclens For Decolonization - TP HS DMITRIY Hydromorphone HCl 0 mg 10/30/17 13:13 Dilaudid Sales Receptionist - TELECOMMUNICATIONS FIELD TECHNICIAN TELECOMMUNICATIONS FIELD TECHNICIAN DMITRIY Protocol Piperacillin/Tazobactam/Dextrose 50 mls @ 100 mls/hr 10/30/17 12:45 Zosyn 3.375gm Ivpb (Premix) IVPB Q8H-IV DMITRIY Protocol Potassium Chloride/Dextrose/Sod Cl 10 meq in 1,000 mls @ 50 mls/hr 10/30/17 13 :13 D5-1/2ns+10 Meq Kcl - IV ASDIR DMITRIY Mirtazapine 30 mg 10/30/17 22:00 Remeron - PO HS [facility] Montelukast Sodium 10 mg 10/30/17 22:00 Singulair - PO HS [facility] Mupirocin 1 applic 10/30/17 22:00 Bactroban Ointment (For Decolonization) - NS 11/03/17 21:59 BID DMITRIY Ondansetron HCl 4 mg 10/30/17 13:13 Zofran Injection IVPUSH Q6H PRN NAUSEA Pantoprazole Sodium 40 mg 10/31/17 10:00 Protonix - PO DAILY [facility] Fluticasone/Salmeterol 1 puff 10/30/17 22:00 Advair 100mcg/50mcg - IH BID [facility] Topiramate 100 mg 10/30/17 22:00 Topamax - PO BID [facility] ASSESSMENT/PLAN: 67F w/ hx of diverticulitis, GERD, Duodenal AVM's, Asthma, arthritis, Anxiety, and depression who presented with BRBPR, admitted for GI bleed, s/p L hemicolectomy, POD #1. Gastrointestinal #GI Bleed -POD #1 s/p left hemicolectomy -Hgb of 8.2, down from 9.8 -continue protonix -continue fluids -clear liquid diet -pain control with dilaudid TELECOMMUNICATIONS FIELD TECHNICIAN and APAP -OOB as tolerated, PT, virk discontinued -rest per surgery Hematology #Acute Blood Loss Anemia -2/2 GI bleed -Hemoglobin of 8.2 this am -trend Hgb CV -atrial tachycardia on tele -continue to monitor ID -leukocytosis of 14.5 -abx changed from cefotxitin to zosyn per ID -continue to monitor wbc count. if persists, consider CT abdomen to r/o collection vs. abscess. Pulmonology #Asthma -Albuterol PRN -Continue 02 monitoring Neurology #History of Brain Tumor -Continue topamax 100mg BID Psych #Anxiety/Depression -Continue home Remeron -Continue home Cymbalta FEN/ppx -IV D5-1/2NS -Electrolytes wnl -clear liquids -SCDs -Protonix Disposition -Full code -stable for transfer to floors per surgery Case discussed with attending, Dr. Reyes. -Beto Pacheco MD PGY1 ICU Team Visit type - Emergency Visit Emergency Visit: Yes ED Registration Date: 10/26/17 Care time: The patient presented to the Emergency Department on the above date and was hospitalized for further evaluation of their emergent condition. - New Patient This patient is new to me today: No - Critical Care Critical Care patient: Yes Total Critical Care Time (in minutes): 35 Critical Care Statement: The care of this patient involved high complexity decision making to prevent further life threatening deterioration of the patient 's condition and/or to evaluate & treat vital organ system(s) failure or risk of failure.
--- NOTE | 2017-10-30 14:32 | PN ---
Progress Note (short form) - Note Progress Note: ############# medical ######## Current Medications Acetaminophen (Ofirmev Injection -) 1,000 mg IVPB Q6H PRN PRN Reason: FEVER Albuterol Sulfate (Ventolin 0.083% Nebulizer Soln -) 1 amp NEB Q8H PRN PRN Reason: SHORT OF BREATH/WHEEZING Albuterol Sulfate (Ventolin Hfa Inhaler -) 2 puff IH Q6H PRN PRN Reason: SHORT OF BREATH/WHEEZING Hydromorphone HCl (Dilaudid Spring Tacker -) 6 mg CIGAR MAKER CIGAR MAKER DMITRIY PRN Reason: Protocol Piperacillin Sod/Tazobactam (Sod 3.375 gm/ Dextrose) 50 mls @ 100 mls/hr IVPB Q8H-IV DMITRIY PRN Reason: Protocol Potassium Chloride/Dextrose/Sod Cl (D5-1/2ns+10 Meq Kcl -) 10 meq in 1,000 mls @ 50 mls/hr IV ASDIR DMITRIY Mirtazapine (Remeron -) 30 mg PO HS [facility] Montelukast Sodium (Singulair -) 10 mg PO HS [facility] Ondansetron HCl (Zofran Injection) 4 mg IVPUSH Q6H PRN PRN Reason: NAUSEA Pantoprazole Sodium (Protonix -) 40 mg PO DAILY [facility] Fluticasone/Salmeterol (Advair 100mcg/50mcg -) 1 puff IH BID DMIT[facility]Y Topiramate (Topamax -) 100 mg PO BID DMITRIY Laboratory Results - last 24 hr 10/26/17 10/28/17 10/30/17 10:30 15:40 05:22 WBC 14.5 H RBC 2.76 L Hgb 8.2 L D Hct 23.9 L D MCV 86.3 MCH 29.6 MCHC 34.3 RDW 15.8 H Plt Count 204 MPV 9.2 D PT with INR INR PTT (Actin FS) Sodium Potassium Chloride Carbon Dioxide Anion Gap BUN Creatinine Random Glucose Calcium Phosphorus Magnesium Blood Type A POSITIVE A POSITIVE Antibody Screen Negative Negative Crossmatch See Detail See Detail Crossmatch IS Only See Detail 10/30/17 10/30/17 05:22 05:22 WBC RBC Hgb Hct MCV MCH MCHC RDW Plt Count MPV PT with INR 19.20 H INR 1.70 H D PTT (Actin FS) 26.5 L Sodium 145 Potassium 3.6 Chloride 112 H Carbon Dioxide 23 Anion Gap 10 BUN 13 Creatinine 1.0 Random Glucose 125 H Calcium 7.4 L Phosphorus 3.2 Magnesium 1.8 Blood Type Antibody Screen Crossmatch Crossmatch IS Only Vital Signs Temperature 99.4 F 10/30/17 12:00 Pulse Rate 95 H 10/30/17 12:00 Respiratory Rate 18 10/30/17 12:00 Blood Pressure 108/46 10/30/17 12:00 O2 Sat by Pulse Oximetry (%) 95 10/30/17 09:00 CC: less pain post-op `````````````````````` skin--pale lungs--clear heart--RR abd--soft, BS+ ext--no edema neuro--awake, verbal in NAD `````````````````` Summ > anemia--likley 2nd post op loss; check daily counts > GI bleed--diverticular; now s/p luis alberto-colectomy (see Surg note), has bowel sounds and placed on PO > Fever--post OP; with high WBC; seen by ID: PLAN: follow WBC and adjust ABs > asthma--breaths clear unlabored ~~~~~~~~~~~~~~~~~~~~~~~ Dr Cortes Problem List - Problems (1) GI bleeding Code(s): K92.2 - GASTROINTESTINAL HEMORRHAGE, UNSPECIFIED Qualifiers: GI bleed type/associated pathology: melena Qualified Code(s): K92.1 - Melena (2) Anemia due to blood loss, acute Code(s): D62 - ACUTE POSTHEMORRHAGIC ANEMIA (3) Asthma Code(s): J45.909 - UNSPECIFIED ASTHMA, UNCOMPLICATED Qualifiers: Asthma severity: mild Asthma complication type: uncomplicated (4) Low back pain Code(s): M54.5 - LOW BACK PAIN Qualifiers: Chronicity: chronic Back pain laterality: right Sciatica presence: without sciatica Qualified Code(s): M54.5 - Low back pain; G89.29 - Other chronic pain; G89.29 - Other chronic pain (5) Hypertension Code(s): I10 - ESSENTIAL (PRIMARY) HYPERTENSION Qualifiers: Hypertension type: essential hypertension Qualified Code(s): I10 - Essential (primary) hypertension (6) Right bundle branch block (RBBB) Code(s): I45.10 - UNSPECIFIED RIGHT BUNDLE-BRANCH BLOCK (7) Chronic headaches Code(s): R51 - HEADACHE Qualifiers: Headache type: unspecified Intractability: not intractable Qualified Code (s): R51 - Headache (8) Osteoporosis Code(s): M81.0 - AGE-RELATED OSTEOPOROSIS W/O CURRENT PATHOLOGICAL FRACTURE Qualifiers: Osteoporosis type: unspecified (9) Anxiety Code(s): F41.9 - ANXIETY DISORDER, UNSPECIFIED
[2017-10-30] MEDS: PIPERACILLIN/TAZOB 3.375 GM 3.375 GM in DEXTROSE 5%-WATER - 50 ML IVPB SCH ×2 (15:47→18:15)
[2017-10-30] MEDS: HYDROmorphone *PCA* 6MG/30ML DISP.SYRIN PCA SCH ×2 (15:52→23:42)
[2017-10-30] MEDS: ONDANSETRON 4 MG/2 ML VIAL IVPUSH PRN (16:11)
[2017-10-30 16:16] LABS: BASO % 0.2 % (0-2.0); EOS % 0.4 % (0-4.5); HEMATOCRIT 23.9 % (32.4-45.2); LYMPH % 8.6 % (8-40); MCHC 33.5 g/dl (32.0-36.0); MEAN CELL VOLUME 86.6 fl (80-96); MEAN PLT VOLUME 9.1 fl (7.5-11.1); MONO % 11.4 % (3.8-10.2); NEUT % 79.4 % (42.8-82.8); PLATELET COUNT 192 K/MM3 (134-434); RBC 2.75 M/mm3 (3.60-5.2); RDW 16.2 % (11.6-15.6); WHITE BLOOD COUNT 12.9 K/mm3 (4.0-10.0)
[2017-10-30] MEDS: MONTELUKAST NA 10 MG TABLET PO SCH (21:26)
[2017-10-30] MEDS ORDERED: MIRTAZAPINE 30 MG TABLET (FP) PO SCH (22:00)
[2017-10-30] MEDS ORDERED: TOPIRAMATE 100 MG TABLET PO SCH (22:00)
[2017-10-30] MEDS ORDERED: CHLORHEXIDINE GLUCONATE 4% CLEANSER FOR DECOLONIZATION TP SCH (22:00)
[2017-10-30] MEDS ORDERED: MUPIROCIN 2% TOPICAL OINTMENT FOR DECOLONIZATION NS SCH (22:00)
[2017-10-30] MEDS: TOPIRAMATE 25 MG TABLET (FP) PO SCH (23:51)
[2017-10-31] MEDS: PIPERACILLIN/TAZOB 3.375 GM 3.375 GM in DEXTROSE 5%-WATER - 50 ML IVPB SCH ×3 (01:12→17:31)
[2017-10-31] MEDS ORDERED: PT OWN MED DRAWER 7, Y5N ONE ×5 (07:17→22:31)
[2017-10-31] MEDS: ONDANSETRON 4 MG/2 ML VIAL IVPUSH PRN ×2 (07:51→13:55)
[2017-10-31 08:29] LABS: BASO % 0.4 % (0-2.0); EOS % 1.1 % (0-4.5); HEMATOCRIT 24.6 % (32.4-45.2); HEMOGLOBIN 8.3 GM/dL (10.7-15.3); LYMPH % 10.2 % (8-40); MCH 29.5 pg (25.7-33.7); MCHC 33.8 g/dl (32.0-36.0); MEAN CELL VOLUME 87.2 fl (80-96); MEAN PLT VOLUME 8.9 fl (7.5-11.1); MONO % 10.3 % (3.8-10.2); PLATELET COUNT 195 K/MM3 (134-434); RBC 2.82 M/mm3 (3.60-5.2); RDW 16.2 % (11.6-15.6); WHITE BLOOD COUNT 13.2 K/mm3 (4.0-10.0)
[2017-10-31 08:41] LABS: INR 1.38 (0.82-1.09); PROTHROMBIN TIME (PATIENT) 15.6 SEC (9.98-11.88)
[2017-10-31] MEDS: ACETAMINOPHEN 1000 MG/100 ML VIAL (NON FORMULARY) IVPB PRN (08:43)
[2017-10-31 08:58] LABS: ANION GAP 10 (8-16); BLOOD UREA NITROGEN 10 mg/dL (7-18); CALCIUM 7.8 mg/dL (8.5-10.1); CHLORIDE 109 mmol/L (98-107); CO2 24 mmol/L (21-32); GLUCOSE,RANDOM 95 mg/dL (74-106); POTASSIUM 3.3 mmol/L (3.5-5.1); SODIUM 143 mmol/L (136-145)
[2017-10-31 09:00] LABS: CREATININE 0.8 mg/dL (0.55-1.02)
[2017-10-31] MEDS: PANTOPRAZOLE 40 MG TABLET (FP) PO SCH (09:08)
[2017-10-31] MEDS: TOPIRAMATE 25 MG TABLET (FP) PO SCH ×2 (09:08→23:10)
[2017-10-31] MEDS: FLUTICASONE/SALMETEROL 100 MCG/50 MCG DISKUS IH SCH ×3 (09:09→23:11)
[2017-10-31] MEDS ORDERED: ACETAMINOPHEN 325 MG TABLET (FP) PO PRN (10:02)
--- NOTE | 2017-10-31 10:07 | PN ---
Progress Note, Physician Chief Complaint: LGIB History of Present Illness: 67 yo female HTN, asthma, chronic Headaches, diverticular disease, OA of spine, GERD, "bleeding ulcer" at age of 8, prior admission in February 2016 with diverticular bleed who presents with dark blood per rectum for 1 week. stable postop, no acute events overnight, reports nausea this morning. - Current Medication List Current Medications: Active Medications Albuterol Sulfate (Ventolin 0.083% Nebulizer Soln -) 1 amp NEB Q8H PRN PRN Reason: SHORT OF BREATH/WHEEZING Albuterol Sulfate (Ventolin Hfa Inhaler -) 2 puff IH Q6H PRN PRN Reason: SHORT OF BREATH/WHEEZING Hydromorphone HCl (Dilaudid Information Security Associate -) 6 mg XM1 TANK DRIVER XM1 TANK DRIVER DMITRIY PRN Reason: Protocol Last Admin: 10/30/17 23:42 Dose: 6 mg Piperacillin Sod/Tazobactam (Sod 3.375 gm/ Dextrose) 50 mls @ 100 mls/hr IVPB Q8H-IV DMITRIY PRN Reason: Protocol Last Admin: 10/31/17 09:08 Dose: 100 mls/hr Potassium Chloride/Dextrose/Sod Cl (D5-1/2ns+10 Meq Kcl -) 10 meq in 1,000 mls @ 50 mls/hr IV ASDIR [facility] Last Admin: 10/30/17 23:41 Dose: 50 mls/hr Potassium Chloride (Potassium Chloride 10 Meq Premix Ivpb -) 10 meq in 100 mls @ 100 mls/hr IVPB Q60M [facility] Stop: 10/31/17 10:59 Mirtazapine (Remeron -) 30 mg PO HS [facility] Montelukast Sodium (Singulair -) 10 mg PO HS [facility] Last Admin: 10/30/17 21:26 Dose: 10 mg Ondansetron HCl (Zofran Injection) 4 mg IVPUSH Q6H PRN PRN Reason: NAUSEA Last Admin: 10/31/17 07:51 Dose: 4 mg Pantoprazole Sodium (Protonix -) 40 mg PO DAILY [facility] Last Admin: 10/31/17 09:08 Dose: 40 mg Fluticasone/Salmeterol (Advair 100mcg/50mcg -) 1 puff IH BID [facility] Last Admin: 10/31/17 09:09 Dose: 1 puff Topiramate (Topamax -) 100 mg PO BID [facility] Last Admin: 10/31/17 09:08 Dose: 100 mg - Objective Vital Signs: Vital Signs Temperature 99.2 F 10/31/17 06:00 Pulse Rate 102 H 10/31/17 06:00 Respiratory Rate 20 10/31/17 06:00 Blood Pressure 124/50 10/31/17 06:00 O2 Sat by Pulse Oximetry (%) 95 10/30/17 21:00 Vital Signs Period Temp Pulse Resp BP Sys/Mckenzie Pulse Ox Last 24 Hr 98.2 F-101.9 F 91-102 18-20 108-138/46-72 95-95 Constitutional: Yes: Well Nourished, No Distress, Calm Eyes: Yes: Conjunctiva Clear, EOM Intact HENT: Yes: Atraumatic, Normocephalic Neck: Yes: Supple, Trachea Midline Cardiovascular: Yes: Regular Rate and Rhythm, Tachycardia, S1, S2. No: Murmur Respiratory: Yes: Regular, CTA Bilaterally Gastrointestinal: Yes: Normal Bowel Sounds, Soft Genitourinary: No: CVA Tenderness - Left, CVA Tenderness - Right Musculoskeletal: No: Muscle Pain, Muscle Weakness Extremities: No: Cool, Cyanosis Edema: No Integumentary: No: Jaundice, Rash Wound/Incision: Yes: Clean/Dry, Well Approximated, Open to air Neurological: Yes: Alert, Oriented Psychiatric: Yes: Alert, Oriented Labs: CBC, BMP 10/31/17 07:00 10/31/17 07:00 INR, PTT INR 1.38 (0.82-1.09) H 10/31/17 07:00 Problem List - Problems (1) Anemia due to blood loss, acute Assessment/Plan: 67 yo female MMP with previous episode of diverticular bleed that required hospitalization but was treated non operatively, This time her presenting H&H was 5.9/18 now after 6 units RBC its 7.6/25 still actively bleeding per rectum. EGD ruled out upper GI source. Previous colonoscopy showed Sigmoid colon focused diverticular disease. POD#2 s/p left hemicolectomy and partial omentectomy for bleeding diverticulosis. Fever 101.9, WBC 14.5 postop now 13.2, on Zosyn, tolerating clears no BM or flatus. continue clear liquid diet ID for continued IV antibiotics trend CBC, f/u velazquez culture Out of bed to chair and ambulate as tolerated Physical therapy evaluation D/C XM1 TANK DRIVER encourage incentive spirometer and Chest PT Code(s): D62 - ACUTE POSTHEMORRHAGIC ANEMIA (2) Diverticulosis Code(s): K57.90 - DVRTCLOS OF INTEST, PART UNSP, W/O PERF OR ABSCESS W/O BLEED (3) History of peptic ulcer Code(s): Z87.11 - PERSONAL HISTORY OF PEPTIC ULCER DISEASE (4) Right bundle branch block (RBBB) Code(s): I45.10 - UNSPECIFIED RIGHT BUNDLE-BRANCH BLOCK (5) Asthma Code(s): J45.909 - UNSPECIFIED ASTHMA, UNCOMPLICATED Qualifiers: Asthma severity: mild Asthma complication type: uncomplicated (6) GERD (gastroesophageal reflux disease) Code(s): K21.9 - GASTRO-ESOPHAGEAL REFLUX DISEASE WITHOUT ESOPHAGITIS Qualifiers: Esophagitis presence: without esophagitis Qualified Code(s): K21.9 - Gastro -esophageal reflux disease without esophagitis (7) Hypertension Code(s): I10 - ESSENTIAL (PRIMARY) HYPERTENSION Qualifiers: Hypertension type: essential hypertension Qualified Code(s): I10 - Essential (primary) hypertension (8) Low back pain Code(s): M54.5 - LOW BACK PAIN Qualifiers: Chronicity: chronic Back pain laterality: right Sciatica presence: without sciatica Qualified Code(s): M54.5 - Low back pain; G89.29 - Other chronic pain; G89.29 - Other chronic pain
--- NOTE | 2017-10-31 10:15 | PN ---
Progress Note (short form) - Note Progress Note: Resting in NAD. No acute events overnight. Fever curve is better. No CP or SOB. OBJECTIVE: Intake & Output 10/28/17 10/29/17 10/30/17 10/31/17 23:59 23:59 23:59 23:59 Intake Total 5150 4850 2800 1250 Output Total 100 1310 1210 410 Balance 5050 3540 1590 840 Weight 184 lb 3.2 oz 183 lb 3.2 oz 182 lb 6.4 oz 192 lb Last Vital Signs Temp Pulse Resp BP Pulse Ox 99.2 F 102 H 20 124/50 95 10/31/17 06:00 10/31/17 06:00 10/31/17 06:00 10/31/17 06:00 10/30/17 21:00 Active Medications Acetaminophen (Tylenol -) 650 mg PO Q6H PRN PRN Reason: FEVER Albuterol Sulfate (Ventolin 0.083% Nebulizer Soln -) 1 amp NEB Q8H PRN PRN Reason: SHORT OF BREATH/WHEEZING Albuterol Sulfate (Ventolin Hfa Inhaler -) 2 puff IH Q6H PRN PRN Reason: SHORT OF BREATH/WHEEZING Hydromorphone HCl (Dilaudid Assembler Surgical Garment -) 6 mg RISK SPECIALIST RISK SPECIALIST DMITRIY PRN Reason: Protocol Last Admin: 10/30/17 23:42 Dose: 6 mg Piperacillin Sod/Tazobactam (Sod 3.375 gm/ Dextrose) 50 mls @ 100 mls/hr IVPB Q8H-IV DMITRIY PRN Reason: Protocol Last Admin: 10/31/17 09:08 Dose: 100 mls/hr Potassium Chloride/Dextrose/Sod Cl (D5-1/2ns+10 Meq Kcl -) 10 meq in 1,000 mls @ 50 mls/hr IV ASDIR DMITRIY Last Admin: 10/30/17 23:41 Dose: 50 mls/hr Potassium Chloride (Potassium Chloride 10 Meq Premix Ivpb -) 10 meq in 100 mls @ 100 mls/hr IVPB Q60M [facility] Stop: 10/31/17 10:59 Mirtazapine (Remeron -) 30 mg PO HS [facility] Montelukast Sodium (Singulair -) 10 mg PO HS [facility] Last Admin: 10/30/17 21:26 Dose: 10 mg Ondansetron HCl (Zofran Injection) 4 mg IVPUSH Q6H PRN PRN Reason: NAUSEA Last Admin: 10/31/17 07:51 Dose: 4 mg Pantoprazole Sodium (Protonix -) 40 mg PO DAILY [facility] Last Admin: 10/31/17 09:08 Dose: 40 mg Fluticasone/Salmeterol (Advair 100mcg/50mcg -) 1 puff IH BID [facility] Last Admin: 10/31/17 09:09 Dose: 1 puff Topiramate (Topamax -) 100 mg PO BID [facility] Last Admin: 10/31/17 09:08 Dose: 100 mg Gen: NAD at rest Heart: RRR Lung: decreased breath sounds at the bases Abd: soft, appropriately tender Ext: no edema Laboratory Results - last 24 hr 10/26/17 10/28/17 10/30/17 10:30 15:40 15:30 WBC 12.9 H RBC 2.75 L Hgb 8.0 L Hct 23.9 L MCV 86.6 MCH 29.0 MCHC 33.5 RDW 16.2 H Plt Count 192 MPV 9.1 Neutrophils % 79.4 Lymphocytes % 8.6 D Monocytes % 11.4 H Eosinophils % 0.4 D Basophils % 0.2 PT with INR INR Sodium Potassium Chloride Carbon Dioxide Anion Gap BUN Creatinine Random Glucose Calcium Blood Type A POSITIVE A POSITIVE Antibody Screen Negative Negative Crossmatch See Detail See Detail Crossmatch IS Only See Detail 10/31/17 10/31/17 10/31/17 07:00 07:00 07:00 WBC 13.2 H RBC 2.82 L Hgb 8.3 L Hct 24.6 L MCV 87.2 MCH 29.5 MCHC 33.8 RDW 16.2 H Plt Count 195 MPV 8.9 Neutrophils % 78.0 Lymphocytes % 10.2 Monocytes % 10.3 H Eosinophils % 1.1 D Basophils % 0.4 PT with INR 15.60 H INR 1.38 H Sodium 143 Potassium 3.3 L Chloride 109 H Carbon Dioxide 24 Anion Gap 10 BUN 10 Creatinine 0.8 Random Glucose 95 Calcium 7.8 L Blood Type Antibody Screen Crossmatch Crossmatch IS Only ASSESSMENT AND PLAN: GI bleed Diverticulosis Acute Blood Loss Anemia s/p ex-lap/Left Hemicolectomy/Partial Omentectomy/Transverse-Rectal Anastamosis - pain control - incentive spirometry - IVF - await return of bowel function - OOB to chair - DVT prophylaxis Dr Mujica
[2017-10-31] MEDS ORDERED: POTASSIUM CHLORIDE 10 MEQ in SODIUM CHLORIDE 100 ML IVPB SCH (10:45)
--- NOTE | 2017-10-31 11:47 | PN ---
Progress Note (short form) - Note Progress Note: Pain follow up Continue the BRINE MAKER today. Abida Ruiz MD.
--- NOTE | 2017-10-31 12:57 | PN ---
Progress Note (short form) - Note Progress Note: Chief Complaint: postop History of Present Illness: denies palpitations, cp, sob, dizziness mild abdomen pain at surgery site fever this morning. Current Medications Acetaminophen (Tylenol -) 650 mg PO Q6H PRN PRN Reason: FEVER Albuterol Sulfate (Ventolin 0.083% Nebulizer Soln -) 1 amp NEB Q8H PRN PRN Reason: SHORT OF BREATH/WHEEZING Albuterol Sulfate (Ventolin Hfa Inhaler -) 2 puff IH Q6H PRN PRN Reason: SHORT OF BREATH/WHEEZING Hydromorphone HCl (Dilaudid Paper Mill Superintendent -) 6 mg RETAIL LOAN ORIGINATOR RETAIL LOAN ORIGINATOR DMITRIY PRN Reason: Protocol Last Admin: 10/30/17 23:42 Dose: 6 mg Piperacillin Sod/Tazobactam (Sod 3.375 gm/ Dextrose) 50 mls @ 100 mls/hr IVPB Q8H-IV DMITRIY PRN Reason: Protocol Last Admin: 10/31/17 09:08 Dose: 100 mls/hr Potassium Chloride/Dextrose/Sod Cl (D5-1/2ns+10 Meq Kcl -) 10 meq in 1,000 mls @ 50 mls/hr IV ASDIR [facility] Last Admin: 10/30/17 23:41 Dose: 50 mls/hr Mirtazapine (Remeron -) 30 mg PO HS [facility] Montelukast Sodium (Singulair -) 10 mg PO HS [facility] Last Admin: 10/30/17 21:26 Dose: 10 mg Ondansetron HCl (Zofran Injection) 4 mg IVPUSH Q6H PRN PRN Reason: NAUSEA Last Admin: 10/31/17 07:51 Dose: 4 mg Pantoprazole Sodium (Protonix -) 40 mg PO DAILY [facility] Last Admin: 10/31/17 09:08 Dose: 40 mg Fluticasone/Salmeterol (Advair 100mcg/50mcg -) 1 puff IH BID [facility] Last Admin: 10/31/17 09:09 Dose: 1 puff Topiramate (Topamax -) 100 mg PO BID [facility] Last Admin: 10/31/17 09:08 Dose: 100 mg - Objective Vital Signs: Vital Signs - 24 hr 10/30/17 10/30/17 10/30/17 15:00 15:51 17:00 Temperature 98.2 F Pulse Rate 91 H 91 H Respiratory 18 18 18 Rate Blood Pressure 111/59 111/59 O2 Sat by Pulse 95 Oximetry (%) 10/30/17 10/30/17 10/30/17 17:22 20:56 21:00 Temperature 98.6 F 101.9 F H Pulse Rate 98 H 91 H Respiratory 20 20 20 Rate Blood Pressure 110/72 116/50 O2 Sat by Pulse 95 Oximetry (%) 10/31/17 10/31/17 10/31/17 01:42 06:00 10:30 Temperature 100.8 F H 99.2 F 98.5 F Pulse Rate 102 H 102 H 95 H Respiratory 20 20 Rate Blood Pressure 138/56 124/50 116/64 O2 Sat by Pulse Oximetry (%) Intake & Output 10/29/17 10/30/17 10/31/17 11/01/17 07:59 07:59 07:59 07:59 Intake Total 4700 5700 2600 200 Output Total 1710 1220 Balance 4700 3990 1380 200 Weight 183 lb 3.2 oz 182 lb 6.4 oz 192 lb Constitutional: Yes: Well Nourished, No Distress, Calm Cardiovascular: Yes: Regular Rate and Rhythm, S1, S2. No: Gallop, Murmur Respiratory: Yes: ctab, poor inspiration. No: Accessory Muscle Use, Rales, Wheezes Extremities: No: Cold Edema: No Neurological: Yes: Alert, Oriented Psychiatric: No: Agitated Labs: CBC, BMP 10/31/17 07:00 10/31/17 07:00 - ....Imaging EKG: Other (prior tele: NSR. brief run PAT) Assessment/Plan ECG 10/26/2017: NSR at 101/min with LVH and RBBB--essentially unchanged compared to her prior ECG done on 01/2016 Echo 12/2016: Normal biventricular size and function with no significant valvular abnormality. Stress MPI 12/2016, pharmacological stress: Normal MPI, no ischemia, LVEF 60% Assessment/Plan 67 yo female (+) tobacco history and strong family h/o ASCVD Now with GI Bleed requiring transfusion s/p left hemicolectomy 10/29 GIB s/p bowel surgery: -postop care per surgery -initially mildly tachycardic, low-range bp's -monitor H/H with routine care per surgery -10/31; , bp/hr now well controlled off IVF PAT: -brief run atrial tach on prior tele --> now off tele - no recurrence --> deferred BB prophylaxis - lyte repletion prn
--- NOTE | 2017-10-31 15:47 | PN ---
Progress Note (short form) - Note Progress Note: ID consult dictated imp/reccd 67 year old female admitted with GI bleed- asked to see for postop fever she is s/p left hemicolectomy 10/29 she had some post op fever and was started on 10/29/17 today she has been up and ambulating she is using incentive spirometry she has a moist cough +burping, not passing gas yet pod #2- s/p hemicolectomy, intermittent fevers suggest cxray continue zosyn for now encourage incentive spirometry and OOB as tolerated if fevers persist may need ct scan of abd/pelvis to r/o collection/abscess Problem List - Problems (1) Postoperative fever Code(s): R50.82 - POSTPROCEDURAL FEVER (2) S/P left hemicolectomy Code(s): Z90.49 - ACQUIRED ABSENCE OF OTHER SPECIFIED PARTS OF DIGESTIVE TRACT
--- NOTE | 2017-10-31 16:51 | CONS ---
INFECTIOUS DISEASE CONSULTATION DATE OF CONSULTATION: DATE OF DICTATION: 10/31/2017 REQUESTING PHYSICIAN: Bob Nunez MD, at the request of the patient. This is a 67-year-old woman who I know from prior admission in 2016. At which time, she had a lumbar laminectomy. She has done well since that time. She is now admitted with a GI bleed. She underwent a hemicolectomy on the and has postoperative fever. Currently, she is doing well. She has had some nausea associated with the Dilaudid which has been stopped. She has been out of bed twice today. She is ambulating, and she is walking to the bathroom and back as well. She has been sitting up out of bed. She has burped a couple of times but has not passed any gas yet. PAST MEDICAL HISTORY: Notable for headaches, hypertension, asthma, diverticulosis, GERD, anxiety, depression, chronic low back pain. 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 She is also status post lumbar laminectomy in January 2017. ALLERGIES: She is allergic to MORPHINE. MEDICATIONS AN OUTPATIENT: Include vitamin E, Topamax, prednisone 10 mg daily, potassium, multivitamins, mirtazapine, Cymbalta, valium, vitamin B12, D3, calcium with vitamin D3, B Complex, albuterol inhaler. Her PMD is Antony Cortes MD. SOCIAL HISTORY: She is a former smoker. She quit in 2013. She lives with her and has occasional wine with dinner. 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 She was [place] the [place] There is no history of any recent travel. FAMILY HISTORY: Notable for heart disease in her father. Mother had an MA at age 85. REVIEW OF SYSTEMS: As per HPI. She has intermittent moist cough. She notes some incisional pain, otherwise, no symptoms. PHYSICAL EXAMINATION: General: She is awake and alert. Vital Signs: Her T-max is 101.2; current temperature is 98.2. Pulse of 99, blood pressure 135/47. Respiratory rate is 20. She is saturating 95%. HEENT: She is normocephalic. Her eyes are anicteric. Neck: Supple. Lungs: Have some scattered rhonchi. Heart: Regular rate and rhythm. Abdomen: Soft. She has a midline incision with emerita intact. No drainage. She has diminished bowel sounds. Extremities: Without edema. DIAGNOSTIC DATA: White count is 13.2, hemoglobin 8.3, platelets are 195. BUN is 10 and creatinine 0.8. LFTs are normal. Urinalysis is negative. Blood cultures are pending. In summary, this is a 67-year-old woman postoperative day number 2 status post exploratory lap with left hemicolectomy and partial omentectomy. Would continue Zosyn as ordered. Would obtain a chest x-ray given cough to rule out postoperative pneumonia. Encourage incentive spirometry and out of bed at this time. Will follow with you and make further recommendations as needed. MICAELA RAMOS M.D. [id number]
--- NOTE | 2017-10-31 17:03 | PATH ---
Surgical Pathology Report Patient Name: CRISPIN DOMINGUEZ Med. Rec. #: [id number] /Age/Gender: 1950 (Age: 67) / F Account: [id number] Location: [facility] MED/SURG Taken: 10/29/2017 Received: 10/30/2017 Reported: 10/31/2017 Physicians: Dario Castro M.D. Specimen(s) Received A: DESCENDING COLON AND SIGMOID B: OMENTUM Clinical History Bleeding diverticulosis Final Diagnosis A. DESCENDING COLON AND SIGMOID, LEFT HEMICOLECTOMY: SEGMENT OF COLON AND SIGMOID WITH DIVERTICULOSIS. SURGICAL MARGINS ARE VIABLE. B. OMENTUM, PARTIAL OMENTECTOMY: OMENTAL ADIPOSE TISSUE WITH FOCAL HEMORRHAGE. Electronically Signed Kasie Wise M.D. Gross Description A. Received in formalin labeled "descending colon and sigmoid," is a 20 cm in length portion of bowel with 2 stapled mucosal margins and moderate attached pericolonic adipose tissue. There is a suture present at one end, marking the splenic flexure, per the surgeon. The serosa is elizabeth hermosillo with focal bulges. The mucosa is elizabeth with focally flattened folds. No mucosal masses are identified. Sectioning reveals abundant uncomplicated diverticula. No definite rupture sites are identified. Studio Camera Operator sections are submitted in 13 cassettes as follows: 1-splenic flexure mucosal margin; 2-distal mucosal margin; 6-71-jliybbmesjcynd diverticula sequentially submitted from proximal to distal. B. Received in formalin labeled "omentum," is an 18.5 x 10.0 x 3.5 cm portion of yellow, lobulated adipose tissue. Sectioning reveals multiple foci of hemorrhage. Studio Camera Operator sections are submitted in 2 cassettes. DL/10/30/2017 saudi/10/30/2017
--- NOTE | 2017-10-31 17:21 | PN ---
Progress Note (short form) - Note Progress Note: Medical Current Medications Acetaminophen (Tylenol -) 650 mg PO Q6H PRN PRN Reason: FEVER Albuterol Sulfate (Ventolin 0.083% Nebulizer Soln -) 1 amp NEB Q8H PRN PRN Reason: SHORT OF BREATH/WHEEZING Albuterol Sulfate (Ventolin Hfa Inhaler -) 2 puff IH Q6H PRN PRN Reason: SHORT OF BREATH/WHEEZING Hydromorphone HCl (Dilaudid Chain Repairer -) 6 mg CIVIL CAD TECH CIVIL CAD TECH DMITRIY PRN Reason: Protocol Last Admin: 10/30/17 23:42 Dose: 6 mg Piperacillin Sod/Tazobactam (Sod 3.375 gm/ Dextrose) 50 mls @ 100 mls/hr IVPB Q8H-IV DMITRIY PRN Reason: Protocol Last Admin: 10/31/17 09:08 Dose: 100 mls/hr Potassium Chloride/Dextrose/Sod Cl (D5-1/2ns+10 Meq Kcl -) 10 meq in 1,000 mls @ 50 mls/hr IV ASDIR DMITRIY Last Admin: 10/30/17 23:41 Dose: 50 mls/hr Mirtazapine (Remeron -) 30 mg PO HS DMITRIY Montelukast Sodium (Singulair -) 10 mg PO HS DMITRIY Last Admin: 10/30/17 21:26 Dose: 10 mg Ondansetron HCl (Zofran Injection) 4 mg IVPUSH Q6H PRN PRN Reason: NAUSEA Last Admin: 10/31/17 13:55 Dose: 4 mg Pantoprazole Sodium (Protonix -) 40 mg PO DAILY [facility] Last Admin: 10/31/17 09:08 Dose: 40 mg Fluticasone/Salmeterol (Advair 100mcg/50mcg -) 1 puff IH BID DMITRIY Last Admin: 10/31/17 09:09 Dose: 1 puff Topiramate (Topamax -) 100 mg PO BID [facility] Last Admin: 10/31/17 09:08 Dose: 100 mg Laboratory Results - last 24 hr 10/26/17 10/31/17 10/31/17 10:30 07:00 07:00 WBC RBC Hgb Hct MCV MCH MCHC RDW Plt Count MPV Neutrophils % Lymphocytes % Monocytes % Eosinophils % Basophils % PT with INR 15.60 H INR 1.38 H Sodium 143 Potassium 3.3 L Chloride 109 H Carbon Dioxide 24 Anion Gap 10 BUN 10 Creatinine 0.8 Random Glucose 95 Calcium 7.8 L Blood Type A POSITIVE Antibody Screen Negative Crossmatch See Detail 10/31/17 07:00 WBC 13.2 H RBC 2.82 L Hgb 8.3 L Hct 24.6 L MCV 87.2 MCH 29.5 MCHC 33.8 RDW 16.2 H Plt Count 195 MPV 8.9 Neutrophils % 78.0 Lymphocytes % 10.2 Monocytes % 10.3 H Eosinophils % 1.1 D Basophils % 0.4 PT with INR INR Sodium Potassium Chloride Carbon Dioxide Anion Gap BUN Creatinine Random Glucose Calcium Blood Type Antibody Screen Crossmatch Vital Signs Temperature 98.2 F 10/31/17 14:00 Pulse Rate 99 H 10/31/17 14:00 Respiratory Rate 20 10/31/17 14:00 Blood Pressure 135/47 10/31/17 14:00 O2 Sat by Pulse Oximetry (%) 95 10/31/17 09:00 CC: feels ill today; began with sudden nausea in mid-day which got worse `````````````````````` skin--pale lungs--clear heart--RR abd--soft ext--no edema neuro--awake, verbal, restless & listless `````````````````` Summ > Nausea--with malaise; weakness; unsure if this is a systemic response to infective process or if due to Ill effect from IV Dilaudid: PLAN: start Zofran; cont IV Abs and IVF > anemia--stable counts so far; check daily > GI bleed--s/p hemicolectomy, had slight BM today; see Surg note > Fever--persisting post OP; Tmax 101.2 with high WBC; seen by ID: PLAN: CXR ordered by ID; cont Abs > asthma--breaths clear unlabored > Low Potassium--replenish as needed ~~~~~~~~~~~~~~~~~~~~~~~ Dr Commentucci Problem List - Problems (1) GI bleeding Code(s): K92.2 - GASTROINTESTINAL HEMORRHAGE, UNSPECIFIED Qualifiers: GI bleed type/associated pathology: melena Qualified Code(s): K92.1 - Melena (2) Anemia due to blood loss, acute Code(s): D62 - ACUTE POSTHEMORRHAGIC ANEMIA (3) Asthma Code(s): J45.909 - UNSPECIFIED ASTHMA, UNCOMPLICATED Qualifiers: Asthma severity: mild Asthma complication type: uncomplicated (4) Low back pain Code(s): M54.5 - LOW BACK PAIN Qualifiers: Chronicity: chronic Back pain laterality: right Sciatica presence: without sciatica Qualified Code(s): M54.5 - Low back pain; G89.29 - Other chronic pain; G89.29 - Other chronic pain (5) Hypertension Code(s): I10 - ESSENTIAL (PRIMARY) HYPERTENSION Qualifiers: Hypertension type: essential hypertension Qualified Code(s): I10 - Essential (primary) hypertension (6) Right bundle branch block (RBBB) Code(s): I45.10 - UNSPECIFIED RIGHT BUNDLE-BRANCH BLOCK (7) Chronic headaches Code(s): R51 - HEADACHE Qualifiers: Headache type: unspecified Intractability: not intractable Qualified Code (s): R51 - Headache (8) Osteoporosis Code(s): M81.0 - AGE-RELATED OSTEOPOROSIS W/O CURRENT PATHOLOGICAL FRACTURE Qualifiers: Osteoporosis type: unspecified (9) Anxiety Code(s): F41.9 - ANXIETY DISORDER, UNSPECIFIED
[2017-10-31] MEDS: D5-1/2NS+10 MEQ KCL - 10 MEQ/1,000 ML INFUS.BAG IV SCH ×2 (17:31→23:22)
--- NOTE | 2017-10-31 18:07 | PN ---
GI Progress Note Subjective: GI Note: Has been up and waking with therapist. Fever to 101 has defefervesced. Denies abdominal pain and has tolerated liquids. - Objective Vital Signs: Vital Signs Temperature 98.2 F 10/31/17 14:00 Pulse Rate 99 H 10/31/17 14:00 Respiratory Rate 20 10/31/17 14:00 Blood Pressure 135/47 10/31/17 14:00 O2 Sat by Pulse Oximetry (%) 95 10/31/17 09:00 Selected Entries 10/31/17 10/31/17 10/31/17 10:00 10:30 14:00 Temperature 101.2 F H 98.5 F 98.2 F Laboratory Tests 10/30/17 10/30/17 10/31/17 05:22 15:30 07:00 WBC 14.5 H 12.9 H 13.2 H Hgb 8.3 L Constitutional: No Distress Eyes: Yes: Conjunctiva Clear Gastrointestinal Inspection: Yes: Scars (healing clean incision) ...Auscultate: Yes: Hypoactive Bowel Sounds ...Palpate: Yes: Soft, Other Labs: CBC, BMP 10/31/17 07:00 10/31/17 07:00 INR, PTT INR 1.38 (0.82-1.09) H 10/31/17 07:00 Problem List - Problems (1) GI bleeding Assessment/Plan: Sylvie is day 2 s/p left hemicolectomy for recurrent diverticular bleeding. If fevers persists will need CT to exclude an anastomotic leak. Code(s): K92.2 - GASTROINTESTINAL HEMORRHAGE, UNSPECIFIED Qualifiers: GI bleed type/associated pathology: melena Qualified Code(s): K92.1 - Melena (2) Colon adenoma Code(s): D12.6 - BENIGN NEOPLASM OF COLON, UNSPECIFIED (3) Diverticulosis Code(s): K57.90 - DVRTCLOS OF INTEST, PART UNSP, W/O PERF OR ABSCESS W/O BLEED (4) History of peptic ulcer Code(s): Z87.11 - PERSONAL HISTORY OF PEPTIC ULCER DISEASE (5) Anemia due to blood loss, acute Code(s): D62 - ACUTE POSTHEMORRHAGIC ANEMIA
[2017-10-31] MEDS: KETOROLAC TROMETHAMINE 30 MG/1 ML VIAL IVPUSH PRN (18:48)
[2017-10-31] MEDS: MONTELUKAST NA 10 MG TABLET PO SCH (23:11)
[2017-11-01] MEDS: KETOROLAC TROMETHAMINE 30 MG/1 ML VIAL IVPUSH PRN ×3 (01:04→22:44)
[2017-11-01] MEDS: PIPERACILLIN/TAZOB 3.375 GM 3.375 GM in DEXTROSE 5%-WATER - 50 ML IVPB SCH ×3 (01:05→18:34)
[2017-11-01 08:28] LABS: BASO % 0.5 % (0-2.0); HEMATOCRIT 22.5 % (32.4-45.2); HEMOGLOBIN 7.6 GM/dL (10.7-15.3); LYMPH % 8.4 % (8-40); MCH 29.6 pg (25.7-33.7); MCHC 33.7 g/dl (32.0-36.0); MEAN CELL VOLUME 87.9 fl (80-96); MEAN PLT VOLUME 8.3 fl (7.5-11.1); MONO % 8.5 % (3.8-10.2); NEUT % 79.6 % (42.8-82.8); PLATELET COUNT 196 K/MM3 (134-434); RBC 2.56 M/mm3 (3.60-5.2); RDW 16.3 % (11.6-15.6); WHITE BLOOD COUNT 9.4 K/mm3 (4.0-10.0)
[2017-11-01] MEDS ORDERED: PT OWN MED DRAWER 7, Y5N ONE ×2 (09:00→18:31)
[2017-11-01] MEDS: FLUTICASONE/SALMETEROL 100 MCG/50 MCG DISKUS IH SCH ×2 (09:03→22:41)
[2017-11-01] MEDS: PANTOPRAZOLE 40 MG TABLET (FP) PO SCH (09:03)
[2017-11-01] MEDS: TOPIRAMATE 25 MG TABLET (FP) PO SCH ×2 (09:03→22:40)
[2017-11-01 09:14] LABS: ALBUMIN 2.1 g/dl (3.4-5.0); ANION GAP 10 (8-16); BILIRUBIN,TOTAL 0.7 mg/dL (0.2-1.0); BLOOD UREA NITROGEN 10 mg/dL (7-18); CALCIUM 7.9 mg/dL (8.5-10.1); CHLORIDE 113 mmol/L (98-107); CO2 23 mmol/L (21-32); CREATININE 0.7 mg/dL (0.55-1.02); GLUCOSE,RANDOM 99 mg/dL (74-106); MAGNESIUM 2.3 mg/dL (1.8-2.4); POTASSIUM 3.2 mmol/L (3.5-5.1); SGOT/AST 22 U/L (15-37); SGPT/ALT 29 U/L (12-78); SODIUM 146 mmol/L (136-145); TOT PROT 4.3 g/dl (6.4-8.2)
[2017-11-01 09:15] LABS: ALK PHOS 76 U/L (45-117)
--- NOTE | 2017-11-01 09:53 | PN ---
Progress Note, Physician Chief Complaint: LGIB History of Present Illness: 67 yo female HTN, asthma, chronic Headaches, diverticular disease, OA of spine, GERD, "bleeding ulcer" at age of 8, prior admission in February 2016 with diverticular bleed who presents with dark blood per rectum for 1 week. stable postop, no acute events overnight, ambulating with assistance and reports feeling better after stopping dilaudid [employer]. - Current Medication List Current Medications: Active Medications Acetaminophen (Tylenol -) 650 mg PO Q6H PRN PRN Reason: FEVER Albuterol Sulfate (Ventolin 0.083% Nebulizer Soln -) 1 amp NEB Q8H PRN PRN Reason: SHORT OF BREATH/WHEEZING Albuterol Sulfate (Ventolin Hfa Inhaler -) 2 puff IH Q6H PRN PRN Reason: SHORT OF BREATH/WHEEZING Piperacillin Sod/Tazobactam (Sod 3.375 gm/ Dextrose) 50 mls @ 100 mls/hr IVPB Q8H-IV DMITRIY PRN Reason: Protocol Last Admin: 11/01/17 09:03 Dose: 100 mls/hr Potassium Chloride/Dextrose/Sod Cl (D5-1/2ns+10 Meq Kcl -) 10 meq in 1,000 mls @ 50 mls/hr IV ASDIR [facility] Last Admin: 10/31/17 23:22 Dose: 50 mls/hr Ketorolac Tromethamine (Toradol Injection -) 30 mg IVPUSH Q6H PRN PRN Reason: PAIN 5-10 Stop: 11/05/17 18:30 Last Admin: 11/01/17 06:35 Dose: 30 mg Mirtazapine (Remeron -) 30 mg PO HS [facility] Montelukast Sodium (Singulair -) 10 mg PO HS [facility] Last Admin: 10/31/17 23:11 Dose: 10 mg Ondansetron HCl (Zofran Injection) 4 mg IVPUSH Q6H PRN PRN Reason: NAUSEA Last Admin: 10/31/17 13:55 Dose: 4 mg Pantoprazole Sodium (Protonix -) 40 mg PO DAILY [facility] Last Admin: 11/01/17 09:03 Dose: 40 mg Fluticasone/Salmeterol (Advair 100mcg/50mcg -) 1 puff IH BID [facility] Last Admin: 03/28/18 09:03 Dose: 1 puff Topiramate (Topamax -) 100 mg PO BID [facility] Last Admin: 11/01/17 09:03 Dose: 100 mg - Objective Vital Signs: Vital Signs Temperature 98.5 F 11/01/17 06:00 Pulse Rate 83 11/01/17 06:00 Respiratory Rate 20 11/01/17 06:00 Blood Pressure 129/55 11/01/17 06:00 O2 Sat by Pulse Oximetry (%) 93 L 10/31/17 21:00 Vital Signs Period Temp Pulse Resp BP Sys/Mckenzie Pulse Ox Last 24 Hr 98.2 F-101.2 F 82-106 18-20 104-135/47-64 93 Intake & Output 10/31/17 11/01/17 11/01/17 23:59 07:59 15:59 Intake Total 500 Balance 500 Weight 187 lb 4.8 oz Intake: IV 500 D5-1/2NS+10 MEQ KCL - 10 500 meq In 1,000 ml @ 50 mls/ hr IV ASDIR [facility] Rx#: [id number] Other: Voiding Method Incontinent # Unmeasured Voids Void 2 Bowel Movement No Weight Measurement Method Built in [facility] Constitutional: Yes: Well Nourished, No Distress, Calm Eyes: Yes: Conjunctiva Clear, EOM Intact HENT: Yes: Atraumatic, Normocephalic Neck: Yes: Supple, Trachea Midline Cardiovascular: Yes: Regular Rate and Rhythm, S1, S2 Respiratory: Yes: Regular, CTA Bilaterally Gastrointestinal: Yes: Normal Bowel Sounds, Soft, Abdomen, Obese, Tenderness ( virgie-incisonal). No: Melena, Rectal Bleeding, Tenderness, Epigastrium, Tenderness, Rebound ...Rectal Exam: Yes: Deferred Genitourinary: No: CVA Tenderness - Left, CVA Tenderness - Right Musculoskeletal: No: Muscle Pain, Muscle Weakness Extremities: Yes: Cool, Cyanosis Edema: No Peripheral Pulses WNL: Yes Integumentary: No: Jaundice, Rash Wound/Incision: Yes: Clean/Dry, Well Approximated, [place] Intact, Open to air. No: Draining, Reddened, Bleeding Neurological: Yes: Alert, Oriented Psychiatric: Yes: Alert, Oriented Labs: CBC, BMP 11/01/17 07:00 11/01/17 07:00 INR, PTT INR 1.38 (0.82-1.09) H 10/31/ 07:00 Problem List - Problems (1) Anemia due to blood loss, acute Assessment/Plan: 67 yo female MMP with previous episode of diverticular bleed that required hospitalization but was treated non operatively, This time her presenting H&H was 5.9/18 now after 6 units and surgery RBC its 7.6/22 still actively bleeding per rectum. EGD ruled out upper GI source. Previous colonoscopy showed Sigmoid colon focused diverticular disease. POD#3 s/p left hemicolectomy and partial omentectomy for bleeding diverticulosis. Fever 101.4, WBC 9.4, on Zosyn , tolerating clears will advance diet, early signs of BM no flatus. soft diet advacnce as tolerated transfuse 1 unit RBC ID for continued IV antibiotics replace electrolytes f/u labs f/u velazquez culture Out of bed to chair and ambulate as tolerated Physical therapy evaluation encourage incentive spirometer and Chest PT Code(s): D62 - ACUTE POSTHEMORRHAGIC ANEMIA (2) Diverticulosis Code(s): K57.90 - DVRTCLOS OF INTEST, PART UNSP, W/O PERF OR ABSCESS W/O BLEED (3) History of peptic ulcer Code(s): Z87.11 - PERSONAL HISTORY OF PEPTIC ULCER DISEASE (4) Right bundle branch block (RBBB) Code(s): I45.10 - UNSPECIFIED RIGHT BUNDLE-BRANCH BLOCK (5) Asthma Code(s): J45.909 - UNSPECIFIED ASTHMA, UNCOMPLICATED Qualifiers: Asthma severity: mild Asthma complication type: uncomplicated (6) GERD (gastroesophageal reflux disease) Code(s): K21.9 - GASTRO-ESOPHAGEAL REFLUX DISEASE WITHOUT ESOPHAGITIS Qualifiers: Esophagitis presence: without esophagitis Qualified Code(s): K21.9 - Gastro -esophageal reflux disease without esophagitis (7) Hypertension Code(s): I10 - ESSENTIAL (PRIMARY) HYPERTENSION Qualifiers: Hypertension type: essential hypertension Qualified Code(s): I10 - Essential (primary) hypertension (8) Low back pain Code(s): M54.5 - LOW BACK PAIN Qualifiers: Chronicity: chronic Back pain laterality: right Sciatica presence: without sciatica Qualified Code(s): M54.5 - Low back pain; G89.29 - Other chronic pain; G89.29 - Other chronic pain
[2017-11-01] MEDS ORDERED: CALCIUM GLUCONATE 10% - 1,000 MG/10 ML VIAL IVPB ONE (10:04)
--- NOTE | 2017-11-01 11:04 | PN ---
Progress Note (short form) - Note Progress Note: Chief Complaint: postop History of Present Illness: denies palpitations, cp, sob, dizziness mild abdomen pain at surgery site Current Medications Generic Name Dose Route Start Last Admin Trade Name Freq PRN Reason Stop Dose Admin Acetaminophen 650 mg 10/31/17 10:02 Tylenol - PO Q6H PRN FEVER Albuterol Sulfate 1 amp 10/30/17 13:13 Ventolin 0.083% Nebulizer Soln - NEB Q8H PRN SHORT OF BREATH/WHEEZING Albuterol Sulfate 2 puff 10/30/17 13:13 Ventolin Hfa Inhaler - IH Q6H PRN SHORT OF BREATH/WHEEZING Piperacillin Sod/Tazobactam 50 mls @ 100 mls/hr 10/30/17 14:00 11/01/17 09:03 Sod 3.375 gm/ Dextrose IVPB 100 mls/hr Q8H-IV DMITRIY Administration Protocol Potassium Chloride/Dextrose/Sod Cl 10 meq in 1,000 mls @ 50 mls/hr 10/30/17 13 :13 10/31/17 23:22 D5-1/2ns+10 Meq Kcl - IV 50 mls/hr ASDIR DMITRIY Administration Potassium Chloride 10 meq in 100 mls @ 100 mls/hr 11/01/17 10:15 Potassium Chloride 10 Meq Premix Ivpb - IVPB 11/01/17 13:14 Q60M DMITRIY Ketorolac Tromethamine 30 mg 10/31/17 18:31 11/01/17 06:35 Toradol Injection - IVPUSH 11/05/17 18:30 30 mg Q6H PRN Administration PAIN 5-10 Mirtazapine 30 mg 10/31/17 22:00 Remeron - PO HS DMITRIY Montelukast Sodium 10 mg 10/30/17 22:00 10/31/17 23:11 Singulair - PO 10 mg HS DMITRIY Administration Ondansetron HCl 4 mg 10/30/17 13:13 10/31/17 13:55 Zofran Injection IVPUSH 4 mg Q6H PRN Administration NAUSEA Pantoprazole Sodium 40 mg 10/31/17 10:00 11/01/17 09:03 Protonix - PO 40 mg DAILY DMITRIY Administration Fluticasone/Salmeterol 1 puff 10/30/17 22:00 11/01/17 09:03 Advair 100mcg/50mcg - IH 1 puff BID DMITRIY Administration Topiramate 100 mg 10/30/17 22:00 11/01/17 09:03 Topamax - PO 100 mg BID DMITRIY Administration Vital Signs Period Temp Pulse Resp BP Sys/Mckenzie Pulse Ox Last 24 Hr 98.1 F-99.5 F 82-103 18-20 104-135/47-65 93 Constitutional: Yes: Well Nourished, No Distress, Calm Cardiovascular: Yes: Regular Rate and Rhythm, S1, S2. No: Gallop, Murmur Respiratory: Yes: ctab, poor inspiration. No: Accessory Muscle Use, Rales, Wheezes Extremities: No: Cold Edema: No Neurological: Yes: Alert, Oriented Psychiatric: No: Agitated Labs: CBC, BMP 11/01/17 07:00 11/01/17 07:00 ECG 10/26/2017: NSR at 101/min with LVH and RBBB--essentially unchanged compared to her prior ECG done on 01/2016 Echo 12/2016: Normal biventricular size and function with no significant valvular abnormality. Stress MPI 12/2016, pharmacological stress: Normal MPI, no ischemia, LVEF 60% Assessment/Plan 67 yo female (+) tobacco history and strong family h/o ASCVD Now with GI Bleed requiring transfusion s/p left hemicolectomy 10/29 GIB s/p bowel surgery: -postop care per surgery,now starting solid foods -initially mildly tachycardic, low-range bp's -bp/hr controlled -getting prbcs today for anemia PAT: -brief run atrial tach on prior tele --> now off tele - no recurrence --> deferred BB prophylaxis - lyte repletion prn
--- NOTE | 2017-11-01 11:28 | PN ---
GI Progress Note Subjective: GI Note: Had BM today. NO fever. No bleeding but is requiring transfusion - Objective Vital Signs: Vital Signs Temperature 98.1 F 11/01/17 09:55 Pulse Rate 93 H 11/01/17 09:55 Respiratory Rate 20 11/01/17 06:00 Blood Pressure 120/65 11/01/17 09:55 O2 Sat by Pulse Oximetry (%) 93 L 10/31/17 21:00 Laboratory Tests 10/31/17 11/01/17 07:00 07:00 Hgb 8.3 L 7.6 L Constitutional: No Distress ...Auscultate: Yes: Normoactive Bowel Sounds ...Palpate: Yes: Soft, Other (nontender) Labs: CBC, BMP 11/01/17 07:00 11/01/17 07:00 INR, PTT INR 1.38 (0.82-1.09) H 10/31/17 07:00 Problem List - Problems (1) GI bleeding Assessment/Plan: Sylvie is day 3 s/p left hemicolectomy for recurrent diverticular bleeding. Fever has resolved. Trial of solids initiated. Postop care as per Dr Nunez. Code(s): K92.2 - GASTROINTESTINAL HEMORRHAGE, UNSPECIFIED Qualifiers: GI bleed type/associated pathology: melena Qualified Code(s): K92.1 - Melena (2) Colon adenoma Code(s): D12.6 - BENIGN NEOPLASM OF COLON, UNSPECIFIED (3) Diverticulosis Code(s): K57.90 - DVRTCLOS OF INTEST, PART UNSP, W/O PERF OR ABSCESS W/O BLEED (4) History of peptic ulcer Code(s): Z87.11 - PERSONAL HISTORY OF PEPTIC ULCER DISEASE (5) Anemia due to blood loss, acute Code(s): D62 - ACUTE POSTHEMORRHAGIC ANEMIA
[2017-11-01] MEDS: KCL 10 MEQ IVPB 10 MEQ/100 ML INFUS.BAG IVPB SCH ×3 (11:45→14:02)
[2017-11-01] MEDS: ALBUTEROL SO4 0.083% IH SOL 2.5 MG/3 ML VIAL.NEB. NEB PRN (14:00)
--- NOTE | 2017-11-01 14:29 | PN ---
Progress Note (short form) - Note Progress Note: doing well no fevers +BM blood transfusion in progress has been oob in chair ambulating to the bathroom Vital Signs Period Temp Pulse Resp BP Sys/Mckenzie Pulse Ox Last 24 Hr 98.1 F-99.5 F 82-103 18-20 104-129/55-66 93-93 cor-rrr lungs decreased bs at bases abd soft,nt incision with emerita intact- dry ext no edema CBC, BMP 11/01/17 07:00 11/01/17 07:00 Microbiology 10/30/17 21:38 Urine - Urine Clean Catch Urine Culture - Final NO GROWTH OBTAINED 10/30/17 22:00 Blood - Peripheral Venous Blood Culture - Preliminary NO GROWTH OBTAINED AFTER 24 HOURS, INCUBATION TO CONTINUE FOR 4 DAYS. 10/30/17 22:00 Blood - Peripheral Venous Blood Culture - Preliminary NO GROWTH OBTAINED AFTER 24 HOURS, INCUBATION TO CONTINUE FOR 4 DAYS. cxray right basilar infiltrate a/p port op fever pod #3- s/p hemicolectomy, intermittent fevers ?RLL infiltrate continue zosyn encourage incentive spirometry and OOB as tolerated if fevers persist may need ct scan of abd/pelvis to r/o collection/abscess d/w Dr Nunez Problem List - Problems (1) Postoperative fever Code(s): R50.82 - POSTPROCEDURAL FEVER (2) S/P left hemicolectomy Code(s): Z90.49 - ACQUIRED ABSENCE OF OTHER SPECIFIED PARTS OF DIGESTIVE TRACT
--- NOTE | 2017-11-01 15:22 | PN ---
Progress Note (short form) - Note Progress Note: @@@@@@@@@@@ medical @@@@@@@@@@@@@@@@@ Current Medications Acetaminophen (Tylenol -) 650 mg PO Q6H PRN PRN Reason: FEVER Albuterol Sulfate (Ventolin 0.083% Nebulizer Soln -) 1 amp NEB Q8H PRN PRN Reason: SHORT OF BREATH/WHEEZING Last Admin: 11/01/17 14:00 Dose: 1 amp Albuterol Sulfate (Ventolin Hfa Inhaler -) 2 puff IH Q6H PRN PRN Reason: SHORT OF BREATH/WHEEZING Piperacillin Sod/Tazobactam (Sod 3.375 gm/ Dextrose) 50 mls @ 100 mls/hr IVPB Q8H-IV DMITRIY PRN Reason: Protocol Last Admin: 11/01/17 09:03 Dose: 100 mls/hr Potassium Chloride/Dextrose/Sod Cl (D5-1/2ns+10 Meq Kcl -) 10 meq in 1,000 mls @ 50 mls/hr IV ASDIR DMITRIY Last Admin: 10/31/17 23:22 Dose: 50 mls/hr Ketorolac Tromethamine (Toradol Injection -) 30 mg IVPUSH Q6H PRN PRN Reason: PAIN 5-10 Stop: 11/05/17 18:30 Last Admin: 11/01/17 06:35 Dose: 30 mg Mirtazapine (Remeron -) 30 mg PO HS DMITRIY Montelukast Sodium (Singulair -) 10 mg PO HS DMITRIY Last Admin: 10/31/17 23:11 Dose: 10 mg Ondansetron HCl (Zofran Injection) 4 mg IVPUSH Q6H PRN PRN Reason: NAUSEA Last Admin: 10/31/17 13:55 Dose: 4 mg Pantoprazole Sodium (Protonix -) 40 mg PO DAILY DMITRIY Last Admin: 11/01/17 09:03 Dose: 40 mg Fluticasone/Salmeterol (Advair 100mcg/50mcg -) 1 puff IH BID DMITRIY Last Admin: 11/01/17 09:03 Dose: 1 puff Topiramate (Topamax -) 100 mg PO BID DMITRIY Last Admin: 11/01/17 09:03 Dose: 100 mg Laboratory Results - last 24 hr 10/28/17 11/01/17 11/01/17 15:40 07:00 07:00 WBC 9.4 RBC 2.56 L Hgb 7.6 L Hct 22.5 L MCV 87.9 MCH 29.6 MCHC 33.7 RDW 16.3 H Plt Count 196 MPV 8.3 Neutrophils % 79.6 Lymphocytes % 8.4 Monocytes % 8.5 Eosinophils % 3.0 D Basophils % 0.5 Sodium 146 H Potassium 3.2 L Chloride 113 H Carbon Dioxide 23 Anion Gap 10 BUN 10 Creatinine 0.7 Creat Clearance w eGFR > 60 Random Glucose 99 Calcium 7.9 L Magnesium 2.3 Total Bilirubin 0.7 D AST 22 ALT 29 Alkaline Phosphatase 76 Total Protein 4.3 L Albumin 2.1 L Blood Type A POSITIVE Antibody Screen Negative Crossmatch See Detail Crossmatch IS Only See Detail 11/01/17 09:54 WBC RBC Hgb Hct MCV MCH MCHC RDW Plt Count MPV Neutrophils % Lymphocytes % Monocytes % Eosinophils % Basophils % Sodium Potassium Chloride Carbon Dioxide Anion Gap BUN Creatinine Creat Clearance w eGFR Random Glucose Calcium Magnesium Total Bilirubin AST ALT Alkaline Phosphatase Total Protein Albumin Blood Type A POSITIVE Antibody Screen Negative Crossmatch See Detail Crossmatch IS Only Vital Signs Temperature 98.7 F 11/01/17 10:00 Pulse Rate 88 11/01/17 10:00 Respiratory Rate 20 11/01/17 10:00 Blood Pressure 120/66 11/01/17 10:00 O2 Sat by Pulse Oximetry (%) 93 L 11/01/17 09:00 CC: feels better today, had non bloody BM `````````````````````` skin--pale; IV site clean lungs--clear heart--RR abd--soft ext--no edema neuro--awake, verbal, restless & listless `````````````````` Summ > anemia--drop in H/h noted but no GI blood loss as evidenced by light brown BM (as opposed to maroon--red stools she was having pre-op)she had today. Little if any abd pain, and seems to be tolerating PO meals. Spoke w/ Dr Nunez who feels the anemia is largely due to dilutional effect from pre-op hydration. No need for abd CT at this time. PLAN: Transfuse; follow H/h > Nausea--resolved once off the DIlaudid > GI bleed--2nd Divertic bleed; s/p hemicolectomy; POD#3 > Fever--none today (so far); WBC count now NL. cont Abs as per ID/Surg > asthma--breaths clear & unlabored > Low Potassium--replenish as needed ~~~~~~~~~~~~~~~~~~~~~~~ Dr Cortes Problem List - Problems (1) GI bleeding Code(s): K92.2 - GASTROINTESTINAL HEMORRHAGE, UNSPECIFIED Qualifiers: GI bleed type/associated pathology: melena Qualified Code(s): K92.1 - Melena (2) Anemia due to blood loss, acute Code(s): D62 - ACUTE POSTHEMORRHAGIC ANEMIA (3) Asthma Code(s): J45.909 - UNSPECIFIED ASTHMA, UNCOMPLICATED Qualifiers: Asthma severity: mild Asthma complication type: uncomplicated (4) Low back pain Code(s): M54.5 - LOW BACK PAIN Qualifiers: Chronicity: chronic Back pain laterality: right Sciatica presence: without sciatica Qualified Code(s): M54.5 - Low back pain; G89.29 - Other chronic pain; G89.29 - Other chronic pain (5) Hypertension Code(s): I10 - ESSENTIAL (PRIMARY) HYPERTENSION Qualifiers: Hypertension type: essential hypertension Qualified Code(s): I10 - Essential (primary) hypertension (6) Right bundle branch block (RBBB) Code(s): I45.10 - UNSPECIFIED RIGHT BUNDLE-BRANCH BLOCK (7) Chronic headaches Code(s): R51 - HEADACHE Qualifiers: Headache type: unspecified Intractability: not intractable Qualified Code (s): R51 - Headache (8) Osteoporosis Code(s): M81.0 - AGE-RELATED OSTEOPOROSIS W/O CURRENT PATHOLOGICAL FRACTURE Qualifiers: Osteoporosis type: unspecified (9) Anxiety Code(s): F41.9 - ANXIETY DISORDER, UNSPECIFIED
--- NOTE | 2017-11-01 17:12 | PN ---
Progress Note (short form) - Note Progress Note: Anesthesiology Pain Service POD#3 s/p Left Hemicolectomy under GA with post-op [employer] SET [employer] OPERATOR. Pt. now feeling well. She states that she feels much better since stopping [employer] SET UP OPERATOR yesterday evening. Pain is well-managed on Toradol. VSS. 67 y.o. s/p hemicolectomy with stable post-operative course. Continue current management as per primary team.
[2017-11-01] MEDS: MONTELUKAST NA 10 MG TABLET PO SCH (22:40)
[2017-11-01] MEDS: MIRTAZAPINE 15 MG TABLET (FP) PO SCH (22:41)
[2017-11-01] MEDS: D5-1/2NS+10 MEQ KCL - 10 MEQ/1,000 ML INFUS.BAG IV SCH (22:45)
[2017-11-02] MEDS ORDERED: PT OWN MED DRAWER 7, Y5N ONE (01:34)
[2017-11-02] MEDS: PIPERACILLIN/TAZOB 3.375 GM 3.375 GM in DEXTROSE 5%-WATER - 50 ML IVPB SCH ×3 (02:03→17:35)
--- NOTE | 2017-11-02 07:55 | PN ---
Progress Note, Physician Chief Complaint: LGIB History of Present Illness: 67 yo female HTN, asthma, chronic Headaches, diverticular disease, OA of spine, GERD, "bleeding ulcer" at age of 8, prior admission in February 2016 with diverticular bleed who presents with dark blood per rectum for 1 week. 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 - Current Medication List Current Medications: Active Medications Acetaminophen (Tylenol -) 650 mg PO Q6H PRN PRN Reason: FEVER Albuterol Sulfate (Ventolin 0.083% Nebulizer Soln -) 1 amp NEB Q8H PRN PRN Reason: SHORT OF BREATH/WHEEZING Last Admin: 11/01/17 14:00 Dose: 1 amp Albuterol Sulfate (Ventolin Hfa Inhaler -) 2 puff IH Q6H PRN PRN Reason: SHORT OF BREATH/WHEEZING Piperacillin Sod/Tazobactam (Sod 3.375 gm/ Dextrose) 50 mls @ 100 mls/hr IVPB Q8H-IV DMITRIY PRN Reason: Protocol Last Admin: 11/02/17 02:03 Dose: 100 mls/hr Potassium Chloride/Dextrose/Sod Cl (D5-1/2ns+10 Meq Kcl -) 10 meq in 1,000 mls @ 50 mls/hr IV ASDIR [facility] Last Admin: 11/01/17 22:45 Dose: Not Given Ketorolac Tromethamine (Toradol Injection -) 30 mg IVPUSH Q6H PRN PRN Reason: PAIN 5-10 Stop: 11/05/17 18:30 Last Admin: 11/01/17 22:44 Dose: 30 mg Mirtazapine (Remeron -) 30 mg PO HS [facility] Last Admin: 11/01/17 22:41 Dose: 30 mg Montelukast Sodium (Singulair -) 10 mg PO HS [facility] Last Admin: 11/01/17 22:40 Dose: 10 mg Ondansetron HCl (Zofran Injection) 4 mg IVPUSH Q6H PRN PRN Reason: NAUSEA Last Admin: 10/31/17 13:55 Dose: 4 mg Pantoprazole Sodium (Protonix -) 40 mg PO DAILY [facility] Last Admin: 11/01/17 09:03 Dose: 40 mg Fluticasone/Salmeterol (Advair 100mcg/50mcg -) 1 puff IH BID [facility] Last Admin: 11/01/17 22:41 Dose: 1 puff Topiramate (Topamax -) 100 mg PO BID [facility] Last Admin: 11/01/17 22:40 Dose: 100 mg - Objective Vital Signs: Vital Signs Temperature 98.8 F 11/02/17 06:00 Pulse Rate 89 11/02/17 06:00 Respiratory Rate 20 11/02/17 06:00 Blood Pressure 112/73 11/02/17 06:00 O2 Sat by Pulse Oximetry (%) 5 L 11/01/17 21:00 Vital Signs Period Temp Pulse Resp BP Sys/Mckenzie Pulse Ox Last 24 Hr 98.0 F-98.8 F 88-98 20-20 108-126/46-74 5-93 Intake & Output 11/01/17 11/01/17 11/02/17 15:59 23:59 07:59 Intake Total 250 450 Balance 250 450 Weight 192 lb 9.6 oz Intake: IV 150 450 D5-1/2NS+10 MEQ KCL - 10 150 450 meq In 1,000 ml @ 50 mls/ hr IV ASDIR DMITRIY Rx#: [id number] IVPB 100 Other: Voiding Method Bedside Commode Bedside Commode # Unmeasured Voids Void 1 Bowel Movement Yes Yes # Bowel Movements 1 Weight Measurement Method Built in [facility] Constitutional: Yes: Well Nourished, No Distress, Calm, Obese Eyes: Yes: Conjunctiva Clear, EOM Intact HENT: Yes: Atraumatic, Normocephalic Neck: Yes: Supple, Trachea Midline Cardiovascular: Yes: Regular Rate and Rhythm, S1, S2. No: Murmur Respiratory: Yes: Regular, CTA Bilaterally Gastrointestinal: Yes: Normal Bowel Sounds, Soft, Ascites, Tenderness (very minial periincisonal). No: Distention Genitourinary: No: CVA Tenderness - Left, CVA Tenderness - Right Extremities: No: Cool, Cyanosis Integumentary: No: Jaundice, Rash Neurological: Yes: Alert, Oriented Psychiatric: Yes: Alert, Oriented Labs: INR, PTT INR 1.38 (0.82-1.09) H 10/31/17 07:00 Problem List - Problems (1) Anemia due to blood loss, acute Assessment/Plan: 67 yo female MMP with previous episode of diverticular bleed that required hospitalization but was treated non operatively, This time her presenting H&H was 5.9/18 now after 6 units and surgery RBC its 7.6/22 still actively bleeding per rectum. EGD ruled out upper GI source. Previous colonoscopy showed Sigmoid colon focused diverticular disease. POD#3 s/p left hemicolectomy and partial omentectomy for bleeding diverticulosis. Fever 101.4, WBC 9.4, on Zosyn , tolerating clears will advance diet, early signs of BM no flatus. soft diet advacnce as tolerated transfuse 1 unit RBC ID for continued IV antibiotics replace electrolytes f/u labs f/u velazquez culture Out of bed to chair and ambulate as tolerated Physical therapy evaluation encourage incentive spirometer and Chest PT Code(s): D62 - ACUTE POSTHEMORRHAGIC ANEMIA (2) Diverticulosis Code(s): K57.90 - DVRTCLOS OF INTEST, PART UNSP, W/O PERF OR ABSCESS W/O BLEED (3) History of peptic ulcer Code(s): Z87.11 - PERSONAL HISTORY OF PEPTIC ULCER DISEASE (4) Right bundle branch block (RBBB) Code(s): I45.10 - UNSPECIFIED RIGHT BUNDLE-BRANCH BLOCK (5) Asthma Code(s): J45.909 - UNSPECIFIED ASTHMA, UNCOMPLICATED Qualifiers: Asthma severity: mild Asthma complication type: uncomplicated (6) GERD (gastroesophageal reflux disease) Code(s): K21.9 - GASTRO-ESOPHAGEAL REFLUX DISEASE WITHOUT ESOPHAGITIS Qualifiers: Esophagitis presence: without esophagitis Qualified Code(s): K21.9 - Gastro -esophageal reflux disease without esophagitis (7) Hypertension Code(s): I10 - ESSENTIAL (PRIMARY) HYPERTENSION Qualifiers: Hypertension type: essential hypertension Qualified Code(s): I10 - Essential (primary) hypertension (8) Low back pain Code(s): M54.5 - LOW BACK PAIN Qualifiers: Chronicity: chronic Back pain laterality: right Sciatica presence: without sciatica Qualified Code(s): M54.5 - Low back pain; G89.29 - Other chronic pain; G89.29 - Other chronic pain
[2017-11-02 08:10] LABS: BASO % 0.5 % (0-2.0); EOS % 3.9 % (0-4.5); HEMATOCRIT 24.2 % (32.4-45.2); HEMOGLOBIN 8.3 GM/dL (10.7-15.3); LYMPH % 11.8 % (8-40); MCHC 34.4 g/dl (32.0-36.0); MEAN PLT VOLUME 8.4 fl (7.5-11.1); MONO % 8.6 % (3.8-10.2); NEUT % 75.2 % (42.8-82.8); PLATELET COUNT 245 K/MM3 (134-434); RBC 2.79 M/mm3 (3.60-5.2); RDW 15.2 % (11.6-15.6); WHITE BLOOD COUNT 8.7 K/mm3 (4.0-10.0)
[2017-11-02 08:27] LABS: ANION GAP 10 (8-16); CALCIUM 7.8 mg/dL (8.5-10.1); CHLORIDE 114 mmol/L (98-107); CO2 24 mmol/L (21-32); CREATININE 0.7 mg/dL (0.55-1.02); GLUCOSE,RANDOM 99 mg/dL (74-106); POTASSIUM 3.4 mmol/L (3.5-5.1); SODIUM 148 mmol/L (136-145)
[2017-11-02 08:30] LABS: BLOOD UREA NITROGEN 10 mg/dL (7-18)
[2017-11-02] MEDS: TOPIRAMATE 25 MG TABLET (FP) PO SCH ×2 (09:54→22:33)
[2017-11-02] MEDS: PANTOPRAZOLE 40 MG TABLET (FP) PO SCH (09:54)
[2017-11-02] MEDS: FLUTICASONE/SALMETEROL 100 MCG/50 MCG DISKUS IH SCH ×2 (10:08→22:32)
--- NOTE | 2017-11-02 11:10 | PN ---
Progress Note (short form) - Note Progress Note: Sleeping in NAD on RA. No acute events overnight. Tolerating PO intake. No CP or SOB. OBJECTIVE: Intake & Output 10/30/17 10/31/17 11/01/17 11/02/17 23:59 23:59 23:59 23:59 Intake Total 2800 1450 750 450 Output Total 1210 410 Balance 1590 1040 750 450 Weight 182 lb 6.4 oz 192 lb 187 lb 4.8 oz 192 lb 9.6 oz Last Vital Signs Temp Pulse Resp BP Pulse Ox 99 F 92 H 20 141/62 5 L 11/02/17 09:49 11/02/17 09:49 11/02/17 09:49 11/02/17 09:49 11/01/17 21:00 Active Medications Acetaminophen (Tylenol -) 650 mg PO Q6H PRN PRN Reason: FEVER Albuterol Sulfate (Ventolin 0.083% Nebulizer Soln -) 1 amp NEB Q8H PRN PRN Reason: SHORT OF BREATH/WHEEZING Last Admin: 11/01/17 14:00 Dose: 1 amp Albuterol Sulfate (Ventolin Hfa Inhaler -) 2 puff IH Q6H PRN PRN Reason: SHORT OF BREATH/WHEEZING Piperacillin Sod/Tazobactam (Sod 3.375 gm/ Dextrose) 50 mls @ 100 mls/hr IVPB Q8H-IV DMITRIY PRN Reason: Protocol Last Admin: 11/02/17 09:54 Dose: 100 mls/hr Potassium Chloride/Dextrose/Sod Cl (D5-1/2ns+10 Meq Kcl -) 10 meq in 1,000 mls @ 50 mls/hr IV ASDIR DMITRIY Last Admin: 11/01/17 22:45 Dose: Not Given Ketorolac Tromethamine (Toradol Injection -) 30 mg IVPUSH Q6H PRN PRN Reason: PAIN 5-10 Stop: 11/05/17 18:30 Last Admin: 11/01/17 22:44 Dose: 30 mg Mirtazapine (Remeron -) 30 mg PO HS [facility] Last Admin: 11/01/17 22:41 Dose: 30 mg Montelukast Sodium (Singulair -) 10 mg PO HS [facility] Last Admin: 11/01/17 22:40 Dose: 10 mg Ondansetron HCl (Zofran Injection) 4 mg IVPUSH Q6H PRN PRN Reason: NAUSEA Last Admin: 10/31/17 13:55 Dose: 4 mg Pantoprazole Sodium (Protonix -) 40 mg PO DAILY [facility] Last Admin: 11/02/17 09:54 Dose: 40 mg Fluticasone/Salmeterol (Advair 100mcg/50mcg -) 1 puff IH BID [facility] Last Admin: 11/02/17 10:08 Dose: 1 puff Topiramate (Topamax -) 100 mg PO BID [facility] Last Admin: 11/02/17 09:54 Dose: 100 mg Gen: NAD at rest Heart: RRR Lung: decreased breath sounds at the bases Abd: soft, (+) BS, post-op Ext: no edema Laboratory Results - last 24 hr 10/28/17 11/01/17 11/02/17 15:40 09:54 06:00 WBC 8.7 RBC 2.79 L Hgb 8.3 L Hct 24.2 L MCV 87.0 MCH 30.0 MCHC 34.4 RDW 15.2 Plt Count 245 D MPV 8.4 Neutrophils % 75.2 Lymphocytes % 11.8 D Monocytes % 8.6 Eosinophils % 3.9 Basophils % 0.5 Retic Count Sodium Potassium Chloride Carbon Dioxide Anion Gap BUN Creatinine Random Glucose Calcium Ferritin Blood Type A POSITIVE Antibody Screen Negative Crossmatch See Detail Crossmatch IS Only See Detail 11/02/17 11/02/17 11/02/17 06:00 06:00 06:00 WBC RBC Hgb Hct MCV MCH MCHC RDW Plt Count MPV Neutrophils % Lymphocytes % Monocytes % Eosinophils % Basophils % Retic Count 4.01 H D Sodium 148 H Potassium 3.4 L Chloride 114 H Carbon Dioxide 24 Anion Gap 10 BUN 10 Creatinine 0.7 Random Glucose 99 Calcium 7.8 L Ferritin 145.719 Blood Type Antibody Screen Crossmatch Crossmatch IS Only ASSESSMENT AND PLAN: GI bleed Diverticulosis Acute Blood Loss Anemia s/p ex-lap/Left Hemicolectomy/Partial Omentectomy/Transverse-Rectal Anastamosis - PO as tolerated - Replete lytes - pain control - Incentive spirometry - OOB to chair - DVT prophylaxis - PT Dr Mujica
[2017-11-02] MEDS: POTASSIUM CHLORIDE ORAL LIQUID 20 MEQ/15 ML PO SCH ×2 (11:51→22:32)
--- NOTE | 2017-11-02 15:43 | PN ---
Progress Note, Physician Chief Complaint: LGIB History of Present Illness: 67 yo female HTN, asthma, chronic Headaches, diverticular disease, OA of spine, GERD, "bleeding ulcer" at age of 8, prior admission in February 2016 with diverticular bleed who presents with dark blood per rectum for 1 week. stable postop, no acute events overnight, ambulating with assistance, no passing gas and loose BM. Tolerating diet. Expressed desire to go home. - Current Medication List Current Medications: Active Medications Acetaminophen (Tylenol -) 650 mg PO Q6H PRN PRN Reason: FEVER Albuterol Sulfate (Ventolin 0.083% Nebulizer Soln -) 1 amp NEB Q8H PRN PRN Reason: SHORT OF BREATH/WHEEZING Last Admin: 11/01/17 14:00 Dose: 1 amp Albuterol Sulfate (Ventolin Hfa Inhaler -) 2 puff IH Q6H PRN PRN Reason: SHORT OF BREATH/WHEEZING Piperacillin Sod/Tazobactam (Sod 3.375 gm/ Dextrose) 50 mls @ 100 mls/hr IVPB Q8H-IV DMITRIY PRN Reason: Protocol Last Admin: 11/02/17 09:54 Dose: 100 mls/hr Potassium Chloride/Dextrose/Sod Cl (D5-1/2ns+10 Meq Kcl -) 10 meq in 1,000 mls @ 50 mls/hr IV ASDIR DMITRIY Last Admin: 11/01/17 22:45 Dose: Not Given Ketorolac Tromethamine (Toradol Injection -) 30 mg IVPUSH Q6H PRN PRN Reason: PAIN 5-10 Stop: 11/05/17 18:30 Last Admin: 11/01/17 22:44 Dose: 30 mg Mirtazapine (Remeron -) 30 mg PO HS DM[facility] Last Admin: 11/01/17 22:41 Dose: 30 mg Montelukast Sodium (Singulair -) 10 mg PO HS [facility] Last Admin: 11/01/17 22:40 Dose: 10 mg Ondansetron HCl (Zofran Injection) 4 mg IVPUSH Q6H PRN PRN Reason: NAUSEA Last Admin: 10/31/17 13:55 Dose: 4 mg Pantoprazole Sodium (Protonix -) 40 mg PO DAILY [facility] Last Admin: 11/02/17 09:54 Dose: 40 mg Potassium Chloride (Potassium Chloride Oral Liquid) 40 meq PO BID [facility] Stop: 11/02/17 22:01 Last Admin: 11/02/17 11:51 Dose: 40 meq Fluticasone/Salmeterol (Advair 100mcg/50mcg -) 1 puff IH BID [facility] Last Admin: 11/02/17 10:08 Dose: 1 puff Topiramate (Topamax -) 100 mg PO BID [facility] Last Admin: 11/02/17 09:54 Dose: 100 mg - Objective Vital Signs: Vital Signs Temperature 98.3 F 11/02/17 15:29 Pulse Rate 92 H 11/02/17 15:29 Respiratory Rate 20 11/02/17 15:29 Blood Pressure 108/53 11/02/17 15:29 O2 Sat by Pulse Oximetry (%) 97 11/02/17 09:00 Vital Signs Period Temp Pulse Resp BP Sys/Mckenzie Pulse Ox Last 24 Hr 98.0 F-99 F 89-98 20-20 108-141/46-74 5-97 Intake & Output 11/01/17 11/02/17 11/02/17 23:59 07:59 15:59 Intake Total 250 450 Balance 250 450 Weight 192 lb 9.6 oz Intake: IV 150 450 D5-1/2NS+10 MEQ KCL - 10 150 450 meq In 1,000 ml @ 50 mls/ hr IV ASDIR DMITRIY Rx#: [id number] IVPB 100 Other: Voiding Method Bedside Commode Bedside Commode # Unmeasured Voids Void 1 Bowel Movement Yes Yes # Bowel Movements 1 2 Weight Measurement Method Built in [facility] Constitutional: Yes: No Distress, Calm, Obese Eyes: Yes: Conjunctiva Clear, EOM Intact HENT: Yes: Atraumatic, Normocephalic Neck: Yes: Supple, Trachea Midline Cardiovascular: Yes: Regular Rate and Rhythm, S1, S2. No: Murmur Respiratory: Yes: Regular, CTA Bilaterally Gastrointestinal: Yes: Normal Bowel Sounds, Soft, Abdomen, Obese. No: Distention, Tenderness, Tenderness, Epigastrium, Tenderness, Rebound, Vomiting Musculoskeletal: No: Muscle Pain, Muscle Weakness Extremities: No: Cool, Cyanosis Edema: No Peripheral Pulses WNL: Yes Integumentary: Yes: Rash. No: Jaundice Wound/Incision: Yes: Clean/Dry, Well Approximated, Debo Intact, Open to air. No: Draining, Reddened, Bleeding Neurological: Yes: Alert, Oriented Psychiatric: Yes: Alert, Oriented Labs: CBC, BMP 11/02/17 06:00 11/02/17 06:00 INR, PTT INR 1.38 (0.82-1.09) H 10/31/17 07:00 Problem List - Problems (1) Anemia due to blood loss, acute Assessment/Plan: 67 yo female MMP with previous episode of diverticular bleed. POD#4 s/p left hemicolectomy and partial omentectomy for bleeding diverticulosis. Having BM and flatus normally. Tmax now99, WBC 8.7, on Zosyn, IVF saline locked, regular diet. soft diet advacnce as tolerated protein supplement started ID for continued IV antibiotics probiotic started Out of bed to chair and ambulate as tolerated Physical therapy evaluation encourage incentive spirometer and Chest PT Discharge at the discretion of the primary and ID Code(s): D62 - ACUTE POSTHEMORRHAGIC ANEMIA (2) Diverticulosis Code(s): K57.90 - DVRTCLOS OF INTEST, PART UNSP, W/O PERF OR ABSCESS W/O BLEED (3) History of peptic ulcer Code(s): Z87.11 - PERSONAL HISTORY OF PEPTIC ULCER DISEASE (4) Right bundle branch block (RBBB) Code(s): I45.10 - UNSPECIFIED RIGHT BUNDLE-BRANCH BLOCK (5) Asthma Code(s): J45.909 - UNSPECIFIED ASTHMA, UNCOMPLICATED Qualifiers: Asthma severity: mild Asthma complication type: uncomplicated (6) GERD (gastroesophageal reflux disease) Code(s): K21.9 - GASTRO-ESOPHAGEAL REFLUX DISEASE WITHOUT ESOPHAGITIS Qualifiers: Esophagitis presence: without esophagitis Qualified Code(s): K21.9 - Gastro -esophageal reflux disease without esophagitis (7) Hypertension Code(s): I10 - ESSENTIAL (PRIMARY) HYPERTENSION Qualifiers: Hypertension type: essential hypertension Qualified Code(s): I10 - Essential (primary) hypertension (8) Low back pain Code(s): M54.5 - LOW BACK PAIN Qualifiers: Chronicity: chronic Back pain laterality: right Sciatica presence: without sciatica Qualified Code(s): M54.5 - Low back pain; G89.29 - Other chronic pain; G89.29 - Other chronic pain
--- NOTE | 2017-11-02 16:02 | PN ---
Progress Note (short form) - Note Progress Note: doing well no fevers +BM eating cor-rrr lungs dcreased bs at bases, clear abd soft, incision emerita intact ext no edema CBC, BMP 11/02/17 06:00 11/02/17 06:00 cxray right basilar infiltrate a/p port op fever resolved pod #4- s/p hemicolectomy, fevers resolved ?RLL infiltrate continue zosyn encourage incentive spirometry and OOB as tolerated if she continues to improve hopefully home in am d/w patient and at bedside d/w dr larkin Problem List - Problems (1) Postoperative fever Code(s): R50.82 - POSTPROCEDURAL FEVER (2) S/P left hemicolectomy Code(s): Z90.49 - ACQUIRED ABSENCE OF OTHER SPECIFIED PARTS OF DIGESTIVE TRACT
[2017-11-02] MEDS: ALBUTEROL SO4 0.083% IH SOL 2.5 MG/3 ML VIAL.NEB. NEB PRN (16:27)
--- NOTE | 2017-11-02 17:20 | PN ---
Progress Note (short form) - Note Progress Note: ############# medical note ############### Current Medications Acetaminophen (Tylenol -) 650 mg PO Q6H PRN PRN Reason: FEVER Albuterol Sulfate (Ventolin 0.083% Nebulizer Soln -) 1 amp NEB Q8H PRN PRN Reason: SHORT OF BREATH/WHEEZING Last Admin: 11/01/17 14:00 Dose: 1 amp Albuterol Sulfate (Ventolin Hfa Inhaler -) 2 puff IH Q6H PRN PRN Reason: SHORT OF BREATH/WHEEZING Amino Acids (Prosource No Carb Liquid Pkt) 30 ml PO BID@0800,1730 DMITRIY Piperacillin Sod/Tazobactam (Sod 3.375 gm/ Dextrose) 50 mls @ 100 mls/hr IVPB Q8H-IV DMITRIY PRN Reason: Protocol Last Admin: 11/02/17 09:54 Dose: 100 mls/hr Ketorolac Tromethamine (Toradol Injection -) 30 mg IVPUSH Q6H PRN PRN Reason: PAIN 5-10 Stop: 11/05/17 18:30 Last Admin: 11/01/17 22:44 Dose: 30 mg Lactobacillus Acidophilus (Bacid -) 1 tab PO DAILY [facility] Mirtazapine (Remeron -) 30 mg PO HS [facility] Last Admin: 11/01/17 22:41 Dose: 30 mg Montelukast Sodium (Singulair -) 10 mg PO HS [facility] Last Admin: 11/01/17 22:40 Dose: 10 mg Ondansetron HCl (Zofran Injection) 4 mg IVPUSH Q6H PRN PRN Reason: NAUSEA Last Admin: 10/31/17 13:55 Dose: 4 mg Pantoprazole Sodium (Protonix -) 40 mg PO DAILY [facility] Last Admin: 11/02/17 09:54 Dose: 40 mg Potassium Chloride (Potassium Chloride Oral Liquid) 40 meq PO BID [facility] Stop: 11/02/17 22:01 Last Admin: 11/02/17 11:51 Dose: 40 meq Fluticasone/Salmeterol (Advair 100mcg/50mcg -) 1 puff IH BID [facility] Last Admin: 11/02/17 10:08 Dose: 1 puff Topiramate (Topamax -) 100 mg PO BID DM[facility] Last Admin: 11/02/17 09:54 Dose: 100 mg Laboratory Results - last 24 hr 10/28/17 11/02/17 11/02/17 15:40 06:00 06:00 WBC 8.7 RBC 2.79 L Hgb 8.3 L Hct 24.2 L MCV 87.0 MCH 30.0 MCHC 34.4 RDW 15.2 Plt Count 245 D MPV 8.4 Neutrophils % 75.2 Lymphocytes % 11.8 D Monocytes % 8.6 Eosinophils % 3.9 Basophils % 0.5 Retic Count Sodium 148 H Potassium 3.4 L Chloride 114 H Carbon Dioxide 24 Anion Gap 10 BUN 10 Creatinine 0.7 Random Glucose 99 Calcium 7.8 L Ferritin Crossmatch IS Only See Detail 11/02/17 11/02/17 06:00 06:00 WBC RBC Hgb Hct MCV MCH MCHC RDW Plt Count MPV Neutrophils % Lymphocytes % Monocytes % Eosinophils % Basophils % Retic Count 4.01 H D Sodium Potassium Chloride Carbon Dioxide Anion Gap BUN Creatinine Random Glucose Calcium Ferritin 145.719 Crossmatch IS Only Vital Signs Temperature 98.3 F 11/02/17 15:29 Pulse Rate 92 H 11/02/17 15:29 Respiratory Rate 20 11/02/17 15:29 Blood Pressure 108/53 11/02/17 15:29 O2 Sat by Pulse Oximetry (%) 97 11/02/17 09:00 Tmax @ 100.7 (taken 5 min before writing this note) CC: feels okay `````````````````````` skin--pale lungs--clear heart--RR abd--soft; emerita not red or draining ext--no edema neuro--awake, verbal, in no distress `````````````````` Summ > anemia--Hgb at 8.3 today; post transfusion > Fever--just spiked to 100.7, but without any associated complaints; all cultures negative to date; is off Abs; will try to check a UA > GI bleed--2nd Divertic bleed; s/p hemicolectomy > asthma--breaths clear & unlabored > Low Potassium--replenish as needed ~~~~~~~~~~~~~~~~~~~~~~~ Dr Cortes Problem List - Problems (1) GI bleeding Code(s): K92.2 - GASTROINTESTINAL HEMORRHAGE, UNSPECIFIED Qualifiers: GI bleed type/associated pathology: melena Qualified Code(s): K92.1 - Melena (2) Anemia due to blood loss, acute Code(s): D62 - ACUTE POSTHEMORRHAGIC ANEMIA (3) Asthma Code(s): J45.909 - UNSPECIFIED ASTHMA, UNCOMPLICATED Qualifiers: Asthma severity: mild Asthma complication type: uncomplicated (4) Low back pain Code(s): M54.5 - LOW BACK PAIN Qualifiers: Chronicity: chronic Back pain laterality: right Sciatica presence: without sciatica Qualified Code(s): M54.5 - Low back pain; G89.29 - Other chronic pain; G89.29 - Other chronic pain (5) Hypertension Code(s): I10 - ESSENTIAL (PRIMARY) HYPERTENSION Qualifiers: Hypertension type: essential hypertension Qualified Code(s): I10 - Essential (primary) hypertension (6) Right bundle branch block (RBBB) Code(s): I45.10 - UNSPECIFIED RIGHT BUNDLE-BRANCH BLOCK (7) Chronic headaches Code(s): R51 - HEADACHE Qualifiers: Headache type: unspecified Intractability: not intractable Qualified Code (s): R51 - Headache (8) Osteoporosis Code(s): M81.0 - AGE-RELATED OSTEOPOROSIS W/O CURRENT PATHOLOGICAL FRACTURE Qualifiers: Osteoporosis type: unspecified (9) Anxiety Code(s): F41.9 - ANXIETY DISORDER, UNSPECIFIED
[2017-11-02] MEDS: LACTOBACILLUS ACIDOPHILUS 1 CAP PO SCH (17:35)
[2017-11-02] MEDS: AMINO ACIDS/PROTEIN HYDROLYS 30 ML LIQUID.PKT PO SCH (17:35)
--- NOTE | 2017-11-02 18:48 | PN ---
Progress Note (short form) - Note Progress Note: Chief Complaint: postop History of Present Illness: denies palpitations, cp, sob, dizziness. ambulating today. using incentive spirometry. diet being advanced, po intake increasing. hypernatremia worsening. s/p 1 unit of prbc's again yesterday. Current Medications Acetaminophen (Tylenol -) 650 mg PO Q6H PRN PRN Reason: FEVER Albuterol Sulfate (Ventolin 0.083% Nebulizer Soln -) 1 amp NEB Q8H PRN PRN Reason: SHORT OF BREATH/WHEEZING Last Admin: 11/02/17 16:27 Dose: 1 amp Albuterol Sulfate (Ventolin Hfa Inhaler -) 2 puff IH Q6H PRN PRN Reason: SHORT OF BREATH/WHEEZING Amino Acids (Prosource No Carb Liquid Pkt) 30 ml PO BID@0800,1730 [facility] Last Admin: 11/02/17 17:35 Dose: 30 ml Piperacillin Sod/Tazobactam (Sod 3.375 gm/ Dextrose) 50 mls @ 100 mls/hr IVPB Q8H-IV DMITRIY PRN Reason: Protocol Last Admin: 11/02/17 17:35 Dose: 100 mls/hr Ketorolac Tromethamine (Toradol Injection -) 30 mg IVPUSH Q6H PRN PRN Reason: PAIN 5-10 Stop: 11/05/17 18:30 Last Admin: 11/01/17 22:44 Dose: 30 mg Lactobacillus Acidophilus (Bacid -) 1 tab PO DAILY [facility] Last Admin: 11/02/17 17:35 Dose: 1 tab Mirtazapine (Remeron -) 30 mg PO HS [facility] Last Admin: 11/01/17 22:41 Dose: 30 mg Montelukast Sodium (Singulair -) 10 mg PO HS [facility] Last Admin: 11/01/17 22:40 Dose: 10 mg Ondansetron HCl (Zofran Injection) 4 mg IVPUSH Q6H PRN PRN Reason: NAUSEA Last Admin: 10/31/17 13:55 Dose: 4 mg Pantoprazole Sodium (Protonix -) 40 mg PO DAILY [facility] Last Admin: 11/02/17 09:54 Dose: 40 mg Potassium Chloride (Potassium Chloride Oral Liquid) 40 meq PO BID [facility] Stop: 11/02/17 22:01 Last Admin: 11/02/17 11:51 Dose: 40 meq Fluticasone/Salmeterol (Advair 100mcg/50mcg -) 1 puff IH BID [facility] Last Admin: 11/02/17 10:08 Dose: 1 puff Topiramate (Topamax -) 100 mg PO BID [facility] Last Admin: 11/02/17 09:54 Dose: 100 mg Vital Signs - 24 hr 11/01/17 11/01/17 11/02/17 19:55 21:00 06:00 Temperature 98.7 F 98.8 F Pulse Rate 98 H 89 Respiratory 20 20 20 Rate Blood Pressure 108/46 112/73 O2 Sat by Pulse 5 L Oximetry (%) 11/02/17 11/02/17 11/02/17 09:00 09:49 15:29 Temperature 99 F 98.3 F Pulse Rate 92 H 92 H Respiratory 20 20 Rate Blood Pressure 141/62 108/53 O2 Sat by Pulse 97 Oximetry (%) 11/02/17 17:36 Temperature 100.7 F H Pulse Rate 94 H Respiratory 20 Rate Blood Pressure 141/64 O2 Sat by Pulse Oximetry (%) Intake & Output 10/31/17 11/01/17 11/02/17 11/03/17 07:59 07:59 07:59 07:59 Intake Total 2600 700 700 Output Total 1220 Balance 1380 700 700 Weight 192 lb 187 lb 4.8 oz 192 lb 9.6 oz Constitutional: Yes: Well Nourished, No Distress, Calm jvd flat, neck supplle Cardiovascular: Yes: Regular Rate and Rhythm, S1, S2. 1/6 soft murmur at sternal border. Respiratory: Yes: bibasilar rales. No: Accessory Muscle Use, Rales, Wheezes Extremities: No: Cold Edema: No Neurological: Yes: Alert, Oriented Psychiatric: No: Agitated + dp/pt + bs soft nt nd Labs: CBC, BMP 11/02/17 06:00 11/02/17 06:00 Laboratory Tests 11/01/17 11/01/17 07:00 07:00 Hgb 7.6 L Sodium 146 H ECG 10/26/2017: NSR at 101/min with LVH and RBBB--essentially unchanged compared to her prior ECG done on 01/2016 Echo 12/2016: Normal biventricular size and function with no significant valvular abnormality. Stress MPI 12/2016, pharmacological stress: Normal MPI, no ischemia, LVEF 60% Assessment/Plan 67 yo female (+) tobacco history and strong family h/o ASCVD - with GI Bleed requiring transfusion - s/p left hemicolectomy 10/29 GIB s/p bowel surgery: -postop care per surgery,now starting solid foods -initially mildly tachycardic, low-range bp's -s/p prbcs (last 11/01) -bp/hr overall controlled - 11/02 hypernatremia worsening, mgm't per pmd/surgery PAT: -brief run atrial tach on prior tele --> now off tele - no recurrence --> deferred BB prophylaxis - lyte repletion prn
[2017-11-02] MEDS: D5-1/2NS+10 MEQ KCL - 10 MEQ/1,000 ML INFUS.BAG IV SCH (19:26)
[2017-11-02] MEDS: MONTELUKAST NA 10 MG TABLET PO SCH (22:33)
[2017-11-02] MEDS: MIRTAZAPINE 15 MG TABLET (FP) PO SCH (22:33)
[2017-11-03] MEDS: PIPERACILLIN/TAZOB 3.375 GM 3.375 GM in DEXTROSE 5%-WATER - 50 ML IVPB SCH ×2 (01:17→10:31)
[2017-11-03 08:10] LABS: SERUM IRON SATURATION 14 % (15-55); TOTAL IRON BINDING CAPACITY 154 ug/dL (250-450); UIBC 132 ug/dL (118-369)
--- NOTE | 2017-11-03 09:06 | PN ---
Progress Note, Physician Chief Complaint: LGIB History of Present Illness: 67 yo female HTN, asthma, chronic Headaches, diverticular disease, OA of spine, GERD, "bleeding ulcer" at age of 8, prior admission in February 2016 with diverticular bleed who presents with dark blood per rectum for 1 week. stable postop, no acute events overnight, ambulating with assistance, now passing flatus and BM . Tolerating diet. Expressed desire to go home. - Current Medication List Current Medications: Active Medications Acetaminophen (Tylenol -) 650 mg PO Q6H PRN PRN Reason: FEVER Albuterol Sulfate (Ventolin 0.083% Nebulizer Soln -) 1 amp NEB Q8H PRN PRN Reason: SHORT OF BREATH/WHEEZING Last Admin: 11/02/17 16:27 Dose: 1 amp Albuterol Sulfate (Ventolin Hfa Inhaler -) 2 puff IH Q6H PRN PRN Reason: SHORT OF BREATH/WHEEZING Amino Acids (Prosource No Carb Liquid Pkt) 30 ml PO BID@0800,1730 [facility] Last Admin: 11/02/17 17:35 Dose: 30 ml Piperacillin Sod/Tazobactam (Sod 3.375 gm/ Dextrose) 50 mls @ 100 mls/hr IVPB Q8H-IV DMITRIY PRN Reason: Protocol Last Admin: 11/03/17 01:17 Dose: 100 mls/hr Ketorolac Tromethamine (Toradol Injection -) 30 mg IVPUSH Q6H PRN PRN Reason: PAIN 5-10 Stop: 11/05/17 18:30 Last Admin: 11/01/17 22:44 Dose: 30 mg Lactobacillus Acidophilus (Bacid -) 1 tab PO DAILY [facility] Last Admin: 11/02/17 17:35 Dose: 1 tab Mirtazapine (Remeron -) 30 mg PO HS [facility] Last Admin: 11/02/17 22:33 Dose: 30 mg Montelukast Sodium (Singulair -) 10 mg PO HS [facility] Last Admin: 11/02/17 22:33 Dose: 10 mg Ondansetron HCl (Zofran Injection) 4 mg IVPUSH Q6H PRN PRN Reason: NAUSEA Last Admin: 10/31/17 13:55 Dose: 4 mg Pantoprazole Sodium (Protonix -) 40 mg PO DAILY [facility] Last Admin: 11/02/17 09:54 Dose: 40 mg Fluticasone/Salmeterol (Advair 100mcg/50mcg -) 1 puff IH BID [facility] Last Admin: 11/02/17 22:32 Dose: 1 puff Topiramate (Topamax -) 100 mg PO BID [facility] Last Admin: 11/02/17 22:33 Dose: 100 mg - Objective Vital Signs: Vital Signs Temperature 99.2 F 11/03/17 06:00 Pulse Rate 94 H 11/03/17 06:00 Respiratory Rate 20 11/03/17 06:00 Blood Pressure 123/65 11/03/17 06:00 O2 Sat by Pulse Oximetry (%) 96 11/02/17 21:00 Vital Signs Period Temp Pulse Resp BP Sys/Mckenzie Pulse Ox Last 24 Hr 98.3 F-100.7 F 90-97 20-20 108-141/53-65 96 Intake & Output 11/02/17 11/03/17 11/03/17 23:59 07:59 15:59 Intake Total 300 100 Balance 300 100 Weight 193 lb 11.2 oz Intake: IV 200 D5-1/2NS+10 MEQ KCL - 10 200 meq In 1,000 ml @ 50 mls/ hr IV ASDIR [facility] Rx#: [id number] IVPB 100 100 Other: Voiding Method Bedside Commode # Unmeasured Voids Void 2 Bowel Movement Yes Yes # Bowel Movements 1 1 Weight Measurement Method Built in [facility] Constitutional: Yes: No Distress, Calm, Obese Eyes: Yes: Conjunctiva Clear, EOM Intact HENT: Yes: Atraumatic, Normocephalic Neck: Yes: Supple, Trachea Midline Cardiovascular: Yes: Regular Rate and Rhythm, S1, S2 Respiratory: Yes: Regular, CTA Bilaterally Gastrointestinal: Yes: Normal Bowel Sounds, Soft, Abdomen, Obese, Tenderness ( virgie-incisional) ...Rectal Exam: Yes: Deferred Genitourinary: No: CVA Tenderness - Left, CVA Tenderness - Right Extremities: No: Cool, Cyanosis Integumentary: No: Jaundice, Rash Neurological: Yes: Alert, Oriented Psychiatric: Yes: Alert, Oriented Labs: CBC, BMP 11/03/17 09:00 Problem List - Problems (1) Anemia due to blood loss, acute Assessment/Plan: 67 yo female MMP with previous episode of diverticular bleed. POD#5 s/p left hemicolectomy and partial omentectomy for bleeding diverticulosis. Having BM and flatus normally. Tmax now 100, WBC 7.9, H&H now stable and increasing, on Zosyn , IVF saline locked, regular diet. soft diet advacnce as tolerated protein supplement started ID for continued IV antibiotics and discontinue on discharge probiotic started Out of bed to chair and ambulate as tolerated Physical therapy evaluation encourage incentive spirometer and Chest PT Discharge at the discretion of the primary and ID Code(s): D62 - ACUTE POSTHEMORRHAGIC ANEMIA (2) Diverticulosis Code(s): K57.90 - DVRTCLOS OF INTEST, PART UNSP, W/O PERF OR ABSCESS W/O BLEED (3) History of peptic ulcer Code(s): Z87.11 - PERSONAL HISTORY OF PEPTIC ULCER DISEASE (4) Right bundle branch block (RBBB) Code(s): I45.10 - UNSPECIFIED RIGHT BUNDLE-BRANCH BLOCK (5) Asthma Code(s): J45.909 - UNSPECIFIED ASTHMA, UNCOMPLICATED Qualifiers: Asthma severity: mild Asthma complication type: uncomplicated (6) GERD (gastroesophageal reflux disease) Code(s): K21.9 - GASTRO-ESOPHAGEAL REFLUX DISEASE WITHOUT ESOPHAGITIS Qualifiers: Esophagitis presence: without esophagitis Qualified Code(s): K21.9 - Gastro -esophageal reflux disease without esophagitis (7) Hypertension Code(s): I10 - ESSENTIAL (PRIMARY) HYPERTENSION Qualifiers: Hypertension type: essential hypertension Qualified Code(s): I10 - Essential (primary) hypertension (8) Low back pain Code(s): M54.5 - LOW BACK PAIN Qualifiers: Chronicity: chronic Back pain laterality: right Sciatica presence: without sciatica Qualified Code(s): M54.5 - Low back pain; G89.29 - Other chronic pain; G89.29 - Other chronic pain
[2017-11-03 10:02] LABS: HEMATOCRIT 26.3 % (32.4-45.2); HEMOGLOBIN 8.8 GM/dL (10.7-15.3); MCH 29.5 pg (25.7-33.7); MCHC 33.5 g/dl (32.0-36.0); MEAN CELL VOLUME 88.1 fl (80-96); MEAN PLT VOLUME 8.4 fl (7.5-11.1); PLATELET COUNT 275 K/MM3 (134-434); RBC 2.98 M/mm3 (3.60-5.2); RDW 15.5 % (11.6-15.6); WHITE BLOOD COUNT 7.9 K/mm3 (4.0-10.0)
[2017-11-03] MEDS: AMINO ACIDS/PROTEIN HYDROLYS 30 ML LIQUID.PKT PO SCH ×2 (10:31→19:01)
[2017-11-03] MEDS: PANTOPRAZOLE 40 MG TABLET (FP) PO SCH (10:32)
[2017-11-03] MEDS: LACTOBACILLUS ACIDOPHILUS 1 CAP PO SCH (10:32)
[2017-11-03] MEDS: TOPIRAMATE 25 MG TABLET (FP) PO SCH (10:32)
[2017-11-03] MEDS: FLUTICASONE/SALMETEROL 100 MCG/50 MCG DISKUS IH SCH (10:32)
[2017-11-03 10:37] LABS: CALCIUM 8.3 mg/dL (8.5-10.1); CHLORIDE 114 mmol/L (98-107); SODIUM 147 mmol/L (136-145)
[2017-11-03 10:41] LABS: ANION GAP 9 (8-16); BLOOD UREA NITROGEN 7 mg/dL (7-18); CO2 24 mmol/L (21-32); CREATININE 0.6 mg/dL (0.55-1.02); GLUCOSE,RANDOM 87 mg/dL (74-106)
--- NOTE | 2017-11-03 13:55 | PN ---
Progress Note (short form) - Note Progress Note: doing well low grade temp last night +BM eating notes discomfort after urinating- Vital Signs Period Temp Pulse Resp BP Sys/Mckenzie Pulse Ox Last 24 Hr 98.3 F-100.7 F 90-97 18-20 108-141/53-73 96 cor-rrr lungs decreased bs at bases, clear abd soft, incision emerita intact perineal erythema, perivaginal erythema ext no edema CBC, BMP 11/03/17 09:00 11/03/17 09:00 a/p port op fever resolved pod #5- s/p hemicolectomy, fevers resolved ?RLL infiltrate continue zosyn day #4 encourage incentive spirometry and OOB as tolerated if she continues to improve hopefully home in am off antibiotics protective barrier cream to prevent chafing from diaper d/w patient and at bedside Problem List - Problems (1) Postoperative fever Code(s): R50.82 - POSTPROCEDURAL FEVER (2) S/P left hemicolectomy Code(s): Z90.49 - ACQUIRED ABSENCE OF OTHER SPECIFIED PARTS OF DIGESTIVE TRACT
--- NOTE | 2017-11-03 16:59 | DS ---
Physical Examination Vital Signs: Vital Signs Temperature 99.3 F 11/03/17 15:26 Pulse Rate 97 H 11/03/17 15:26 Respiratory Rate 18 11/03/17 15:26 Blood Pressure 129/67 11/03/17 15:26 O2 Sat by Pulse Oximetry (%) 96 11/02/17 21:00 Constitutional: Yes: No Distress Eyes: Yes: Conjunctiva Clear Neck: Yes: WNL Cardiovascular: Yes: Regular Rate and Rhythm Respiratory: Yes: CTA Bilaterally Gastrointestinal: Yes: Normal Bowel Sounds, Other (emerita intact; no discharge) Edema: No Wound/Incision: Yes: Clean/Dry, Well Approximated, [place] Intact Neurological: Yes: WNL, Alert, Oriented ...Motor Strength: WNL Psychiatric: Yes: WNL Labs: CBC, BMP 11/03/17 09:00 11/03/17 09:00 Discharge Summary Reason For Visit: GASTROINTESTINAL HEMORRHAGE Current Active Problems Anemia due to blood loss, acute (Acute) Chronic headaches (Acute) Colon adenoma (Acute) Diverticulosis (Acute) GI bleeding (Acute) History of peptic ulcer (Acute) Postoperative fever (Acute) Right bundle branch block (RBBB) (Acute) S/P left hemicolectomy (Acute) asthma osteoporosis depression Procedures: Principal: hemicolectomy Other Procedures: mulitple PC transfusions Hospital Course: 67 y/o F with known divertic Dz arrives for rectal bleeding and low H/h that she 'd had for a few days [employer]. She was transfused and underwent endoscopy revealed a low GI (divertic bleed) which did not stop. She was seen by surgery who advised partial colectomy. She underwent surgery without any major complications ; she did spike fevers in the post op period but cultures did not show any bacterial organisms. The fevers abated. She did require 1 added transfusion post op 2nd dilutional effect of intra-op hydration. She denied any new issues post op such as coughing; CP; dysuria; dizziness, abd pains; she tolerated PO food; was able to walk, and had formed BMs. Condition: Stable - Instructions Diet, Activity, Other Instructions: Postoperative instructions: You had a Left hemicolectomy on 10/29/[address] Bob Nunez of [facility]. Activity: Resume your usual activities gradually, but no heavy exertion or lifting more than 10-15 pounds for 4-6 weeks. You may shower daily starting then , just pat the incision areas dry. [place] should not need to be recovered with any dressings, unless you have been told otherwise. Eat lightly at first, but advance to your usual diet as tolerated. Pain: For pain, you may use and alternate Tylenol (acetaminophen) and/or ibuprofen every 6 hours each as needed; this means that you can take one OR the other at 3-hour intervals. If you are prescribed a Tylenol/narcotic combination for severe pain, use it instead of plain Tylenol as needed and switch back when your pain starts decreasing. Do not take more than 4000mg of acetaminophen in a day. Take medications as prescribed or indicated on the labeling. Follow-up: Call Dr. Nunez's office at [phone] to make your postop appointment (Monday 2 weeks after surgery as advised). Clinic is held in the [facility] on the first floor of [facility]. Call the office if you have: * increasing pain not responsive to pain medication * fever of 101F or higher * vomiting * unusual or increasing bleeding or drainage from wounds * increasing redness or swelling at wound sites * inability to urinate Also, see your primary medical doctor within 1-2 weeks. Referrals: Antony Cortes MD [Primary Care Provider] - Disposition: VNS/HOME HEALTH CARE - Home Medications Comprehensive Discharge Medication List: Ambulatory Orders B-Complex with Vitamin C [B-Complex with C] 1 each PO DAILY 02/01/16 Calcium Carb, Citrate/Vit D3 [Calcium + D3 ER Tablet] 1 each PO DAILY 02/01/16 Cholecalciferol (Vitamin D3) [D3-2000] 2,000 unit PO DAILY 02/01/16 Mirtazapine 30 mg PO HS 02/01/16 Topiramate 100 mg PO BID 02/01/16 Duloxetine HCl [Cymbalta -] 30 mg PO HS 01/05/17 Potassium Chloride [Klor-Con] 20 meq PO DAILY 01/05/17 Albuterol Sulfate Inhaler - [Ventolin HFA Inhaler -] 1 puff IH QID PRN #0 inhaler 01/18/17 Amoxicillin - [Amoxicillin 500mg Capsule -] 500 mg PO BID #10 capsule 11/03/17 Lactobacillus Acidophilus [Bacid -] 1 tab PO DAILY #30 tab 11/03/17 Montelukast Na [Singulair -] 10 mg PO HS tablet 11/03/17
[2017-11-03] MEDS: ONDANSETRON 4 MG/2 ML VIAL IVPUSH PRN (19:01)
[2017-11-03 20:06] VITALS: BP 140/67; PULSE 96; TEMP 99.5
--- NOTE | 2017-11-04 07:36 | OP ---
DATE OF OPERATION: 10/29/2017 PREOPERATIVE DIAGNOSIS: Bleeding diverticulosis. POSTOPERATIVE DIAGNOSIS: Bleeding diverticulosis. PROCEDURE: Exploratory laparotomy, left hemicolectomy, partial omentectomy. ATTENDING SURGEON: Bob Nunez MD POULTRYMAN: Brian Gonzalez MD ANESTHESIA: Russell De La Garza MD ANESTHESIA TYPE: General. ESTIMATED BLOOD LOSS: 150 mL DRAINS: Cat and NG tube. NG tube removed at the end of the case. Cat drainage during the surgery is 400 mL clear urine. BLOOD VOLUME REPLACED: 350 mL, 1 unit packed red cells. INTRAVENOUS FLUID ADMINISTERED DURING THE CASE: 3500 mL of crystalloid. SPECIMEN: Left colon consisting of descending and sigmoid colons. STITCH MARTIR: The hepatic flexure and part of the omentum. BRIEF FINDINGS: Dense adhesions throughout the abdomen and the left colon, scattered diverticula noted at the serosa of the left colon that could be visualized, ileocecal hematoma in the mesentery, also noted primary [id number] transverse to rectal stapled anastomosis was made. INDICATIONS: Patient is a 67-year-old female with a history of GI bleeds for the last 5 years. She was admitted on this admission with bleed that was significant requiring a transfusion of 6 units. Hemoglobin and hematocrit at their lowest were 5 and 19. She was transfused preoperatively to 8 and 24, but had significant and persistent bloody bowel movements. Previous lower endoscopy had localized the bleeding to the segment of arxpqbtq-hr-qewlit disease in the sigmoid colon. Imaging including tagged red cell scan and CT angiography localized the bleeding in the left side of the colon, primarily at the splenic flexure and distal. She was explained the risks, benefits, and alternatives to surgical resection of the left colon in order to obtain hemostasis and remove diseased segments of colon. She had her questions answered to her satisfaction, and informed consent was placed on the chart. DESCRIPTION OF PROCEDURE: Patient was brought to the operating room, placed in supine position on the operating table with both arms extended 90 degrees perpendicular to the body's axis at the midline axis. She was prepped and draped in standard surgical fashion. Lower extremities had SCDs placed. Patient received intravenous antibiotics prior to surgery. Patient was induced with general anesthesia, endotracheally intubated by Anesthesia without event. NG tube was placed for decompression of the stomach. After a formal timeout identifying the operative site and the procedure, with all parties in agreement, we proceeded with a midline laparotomy in the abdomen. It was incised with a 10-blade scalpel, deepened and widened through the subcutaneous tissue with Bovie cautery to the midline rectus fascia. It was identified. A small opening was made in the midline fascia. The fascia was then elevated, and entry was made, elevating the fascia into the abdomen. Under direct visualization and with finger protecting the abdominal viscera, the remainder of the midline was opened cranially and caudally. We proceeded then with a standard exploration of the abdomen. We proceeded from the right upper quadrant, inspecting the liver and gallbladder which appeared atraumatic. There was a significant amount of adhesions to the midline falciform. With finger dissection, we were able to lyse these adhesions circumferentially, proceeding in a clockwise fashion. The left upper quadrant and left lower quadrants were then identified, revealing some dense adhesions towards the lower midline of the sigmoid colon. These adhesions were lysed, some with Bovie cautery, some bluntly. The left colon was identified, and the line of Toldt was then identified. There were scattered diverticula throughout the length of the left colon that was exposed in the serosa. No acute inflammation was identified. No free fluid or stool contamination was noted. We proceeded with identification of the line of Toldt and began our dissection towards the splenic flexure. This was carried through with Bovie cautery and elevating the trabecula in the dissection plane towards the mesentery of the colon. This was elevated to the splenic flexure. At which point, we proceeded with taking down the splenic flexure towards the mid transverse. Just past the splenic flexure approximately 3 cm past Christine point anatomically, the transverse colon was exposed and then lowered towards the left lower quadrant and the upper rectum. We carried the dissection then distally along the line of Toldt, elevating carefully in the loose trabecula with care taken to avoid as we crossed the pelvic brim any ureter. It was not identified, but our dissection was carried through atraumatically and relatively bloodless towards the midline. With the left colon mobilized towards the midline, we proceeded then to drape the transverse colon towards the upper rectum and decide on points of transection. To facilitate visualization, the majority of the small bowel was eviscerated and retracted towards the right side of the abdomen and packed away from the surgical field. The very proximal rectum was selected as the point of transection with the termination of the taenia coli. It was identified and the mesentery was then traversed with a Nazia clamp and the anvil of the KENIA size [address]. The KENIA was then used to transect the upper rectum at a point where there would be a relatively tension-free anastomosis that could be fashioned. We then carried our dissection proximally along the left colon, keeping high on the mesentery to avoid unnecessary dissection of mesentery. The vascular structures were palpated in the mesentery and then divided with a LigaSure Impact. This was carried through up to the splenic flexure where we decided that there a tension-free stapled anastomosis could be fashioned with the upper rectum. We proceeded then using the LigaSure to dissect the colon, and the colon itself was then transected, traversing the mesentery again with a Nazia clamp. The anvil of the KENIA was then guided into place proximally and transected a segment of left colon including both the sigmoid and the descending colon. It was passed off the field for pathologic diagnosis, but was marked at the splenic flexure with a silk stitch which was cut long for identification. The area appeared to be relatively hemostatic but was packed along the left colon bed to allow for additional hemostasis. We then proceeded with approximating the edges to fashion a stapled anastomosis, approximating the mesenteric borders and allowing the transverse colon then to be draped towards the upper rectum. It was tacked in place with interrupted silk stitches in 3 places. Once this was aligned and it was assured that there was no kink, the small bowel was reinstalled into the abdomen and protected away from the field to allow for a stapled anastomosis. Clean towels were laid in place to control any contamination, and small colotomies were made using Bovie cautery. The colotomies were held upon, and anvil and staple ends of the KENIA size 60 with a blue load were loaded into the colon without significant contamination of the field. With these staple arms in place, they were carefully positioned to remove any fat interposing into the stapled anastomosis. The stapler was then fired, making a common channel between the 2 segments of colon. A TA stapler size 60 was then used to staple the end of the colotomy with the common channel, leaving a stapled anastomosis and a common lumen of approximately 3 cm in diameter. This was done. The omentum was then transected which appeared to be a tongue that would be nonviable and also facilitated the stapled anastomosis. This was transected with the LigaSure and then sent for pathologic diagnosis along with the specimen. The area was then irrigated with irrigation fluid. Approximately 1 L of warm irrigation was used to irrigate the field. We then restored the small bowel and colon into the abdomen in anatomic position, assured no twisting of abdominal viscera. Hemostasis was then obtained all throughout, and the abdomen was closed using No. 1 loop PDS from the superior and inferior poles. Once complete, at the level of the skin, the wound was then irrigated again and closed with emerita. The skin was cleaned. A dry dressing of 4 x 8 gauze was placed. Tegaderms were placed as well. The patient was awoken from general anesthesia, having tolerated the procedure well. Counts were correct. MD SULLY Castro/[id number]
== END 2017-11-03 20:40 | disposition home health service (06) | DRG 330 ==
LOC: JER 09:53 → JERBED 11:38 → JICU 15:20 → J8W 10-30 13:00
PROVIDERS: ADMIT Internal Medicine; ATTEND Internal Medicine
PROC: 30253N1 (ICD-10-PCS; 2017-10-26)
PROC: 0DBU0ZZ Excision of Omentum, Open Approach (ICD-10-PCS; 2017-10-29)
PROC: 0DNW0ZZ Release Peritoneum, Open Approach (ICD-10-PCS; 2017-10-29)
PROC: 0DTG0ZZ Resection of Left Large Intestine, Open Approach (ICD-10-PCS; principal; 2017-10-29 08:30)
DX: K57.31 Diverticulosis of large intestine without perforation or abscess with bleeding (principal); D62 Acute posthemorrhagic anemia; I47.1 Supraventricular tachycardia; J45.909 Unspecified asthma, uncomplicated; M54.5 Low back pain; I10 Essential (primary) hypertension; I45.10 Unspecified right bundle-branch block; R51 Headache; M81.0 Age-related osteoporosis without current pathological fracture; F41.8 Other specified anxiety disorders; R50.82 Postprocedural fever; K21.9 Gastro-esophageal reflux disease without esophagitis; E87.6 Hypokalemia; D72.829 Elevated white blood cell count, unspecified
CPT/HCPCS: 36415; 36430; 71045-TC-FY; 74174-TC; 78278-TC; 80048; 80053; 82272; 82550; 82728; 83540; 83550; 83735; 84100; 85025; 85027; 85044; 85610; 85730; 86850; 86900; 86901; 86922; 87040; 87086; 88305-TC; 88307-TC; 93005; 93010; 94640; 97116-GP; 97161-GP; 99285-25; A9538; J0131; J1170; P9038; P9058

== ENCOUNTER 2018-12-24 09:03 | Day surgery (SDC) | payer OTHER, MEDICARE ==
[2018-12-24 09:54] VITALS: BMI 32.4
[2018-12-24 10:46] VITALS: TEMP 98.8
[2018-12-24 12:00] VITALS: BP 145/67; PULSE 84
--- NOTE | 2018-12-26 15:58 | PATH ---
Surgical Pathology Report Patient Name: CRISPIN DOMINGUEZ [facility]. Rec. #: [id number] /Age/Gender: 1950 (Age: 68) / F Account: [id number] Location: [facility] SURGICAL Taken: 12/24/2018 Received: 12/24/2018 Reported: 12/26/2018 Physicians: Monika Mujica M.D. Specimen(s) Received A: DUODENUM B: ANTRUM C: GASTRIC FUNDUS ULCERS Clinical History Epigastric pain. Postoperative diagnosis: Duodenal AVM, multiple fundal ulcers, gastritis Final Diagnosis A. SECOND PORTION AND BULB OF DUODENUM, BIOPSY: DUODENAL MUCOSA WITH NO PATHOLOGIC FINDINGS. B. ANTRUM, BIOPSY: MILD CHRONIC GASTRITIS. IMMUNOSTAIN IS NEGATIVE FOR H. PYLORI ORGANISMS. C. GASTRIC FUNDUS ULCERS, BIOPSY: MILD CHRONIC GASTRITIS. IMMUNOSTAIN IS NEGATIVE FOR H. PYLORI ORGANISMS. Electronically Signed Estela Perez M.D. Gross Description A. Received in formalin, labeled "second portion, and bulb of duodenum" are three pieces of elizabeth tissue each up to 0.3 cm in greatest dimension. Entirely submitted in one cassette. B. Received in formalin, labeled "antrum" are two pieces of elizabeth tissue measuring 0.3 cm and 0.7 cm in greatest dimension. Entirely submitted in one cassette. C. Received in formalin, labeled "gastric fundus ulcers" are two pieces of elizabeth tissue measuring 0.5 cm and 0.7 cm in greatest dimension. Entirely submitted in one cassette. AE/12/24/2018 ebram/12/24/2018
== END 2018-12-24 11:50 | disposition home or self-care (01) ==
LOC: JASU-SURG 09:03
PROVIDERS: ATTEND Internal Medicine Gastroenterology
PROC: 0DB68ZX Excision of Stomach, Via Natural or Artificial Opening Endoscopic, Diagnostic (ICD-10-PCS; principal; 2018-12-24 10:15)
DX: K21.9 Gastro-esophageal reflux disease without esophagitis (principal); K25.9 Gastric ulcer, unspecified as acute or chronic, without hemorrhage or perforation; K29.70 Gastritis, unspecified, without bleeding; K55.20 Angiodysplasia of colon without hemorrhage
CPT/HCPCS: 88305-TC; 88342-TC

== ENCOUNTER 2020-06-19 05:01 | Day surgery (SDC) | payer OTHER, MEDICARE ==
[2020-06-19 10:04] VITALS: BMI 30.1
[2020-06-19 11:11] VITALS: TEMP 97.1
[2020-06-19 11:54] VITALS: BP 145/61; PULSE 70
== END 2020-06-19 12:25 | disposition home or self-care (01) ==
LOC: JASU-ENDO 05:01
PROVIDERS: ATTEND Internal Medicine Gastroenterology
PROC: 0DCH8ZZ Extirpation of Matter from Cecum, Via Natural or Artificial Opening Endoscopic (ICD-10-PCS; principal; 2020-06-19 10:30)
DX: T18.4XXA Foreign body in colon, initial encounter (principal); X58.XXXA Exposure to other specified factors, initial encounter; Y93.89 Activity, other specified; Y92.9 Unspecified place or not applicable; Y99.9 Unspecified external cause status
CPT/HCPCS: 88300-TC

== ENCOUNTER 2020-07-07 06:06 | Day surgery (SDC) | payer OTHER, MEDICARE ==
[2020-07-06 14:45] VITALS: BMI 30.1
[2020-07-07] MEDS ORDERED: LIDOCAINE HCL 1%, 10 MG/ML (20ML VIAL) ONE (15:09)
[2020-07-07] MEDS ORDERED: LIDOCAINE HCL 1%, 10 MG/ML (20ML VIAL) NR ONE (16:04)
[2020-07-07 16:24] VITALS: BP 153/65
[2020-07-07 16:50] VITALS: PULSE 88; TEMP 98.6
== END 2020-07-07 16:40 | disposition home or self-care (01) ==
LOC: JASU-SURG 06:06
PROVIDERS: ATTEND Surgery
PROC: 0HBU0ZZ Excision of Left Breast, Open Approach (ICD-10-PCS; principal; 2020-07-07 14:30)
DX: N60.02 Solitary cyst of left breast (principal)
CPT/HCPCS: 88307-TC